=== PATIENT | male | born 1955 | race Hispanic/Latino ===

== ENCOUNTER 2022-01-02 09:21 | Day surgery (SDC) | payer OTHER ==
--- NOTE | 2021-12-29 10:59 | EKG ---
Test Date: 2021-12-28 Test Time: 13:05:35 Clinic Supervisor: ED MEASUREMENT RESULTS: Intervals: Rate: 48 DE: 162 QRSD: 92 QT: 444 QTc: 396 [place]: P: 64 DE: 162 QRS: 59 T: 65 INTERPRETIVE STATEMENTS: Marked sinus bradycardia Abnormal ECG Compared to ECG 08/24/2016 10:00:12 No significant changes Electronically Signed On 12-29-21 10:58:40 CDT by Doyle Orr
[2022-01-02] MEDS ORDERED: CEFAZOLIN SODIUM 1 GM/VIAL ONE (10:07)
[2022-01-02] MEDS ORDERED: NA CHLORIDE 0.9% 1,000 ML ONE (10:07)
[2022-01-02] MEDS ORDERED: MIDAZOLAM HCL 2 MG/2 ML INJ ONE (11:23)
[2022-01-02] MEDS ORDERED: propofoL 200 MG/20 ML VIAL IV ONE (11:23)
[2022-01-02] MEDS ORDERED: LIDOCAINE 1% MPF 5 ML VIAL ONE (11:23)
[2022-01-02] MEDS ORDERED: FENTANYL CITR 100 MCG/2 ML ONE ×2 (11:23→12:03)
[2022-01-02] MEDS ORDERED: BUPIVACA 0.5%/EPI 0.0005%/PF 30 ML VIAL ONE (11:25)
[2022-01-02] MEDS ORDERED: HYDROMORPHONE HCL 1 MG/ML INJ ONE (11:38)
[2022-01-02] MEDS ORDERED: ONDANSETRON 4 MG/2 ML VIAL ONE (12:17)
[2022-01-02 12:50] VITALS: TEMP 97.6
[2022-01-02 14:47] VITALS: BP 215/70; O2SAT 99
--- NOTE | 2022-01-02 22:50 | OP ---
Date of Procedure: 01/02/2022 Surgeon: Tai Suarez MD Preoperative Diagnosis: Right knee pain with mechanical symptoms, probable medial meniscal tear or t ears. 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 Procedure: Right knee arthroscopy with debridement of medial meniscus and takedown of medial plica. Estimated Blood Loss: 10 cc. Complications: There were no complications. Specimen: No pathology specimen sent. Indications For Operation: Mr. 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 He had an MRI, which demonstrates a probable medial meniscal tear as well as mechanical symptoms on physical examination and history. He does have medial joint l ine tenderness and risks, benefits, and alternatives of different methods of treating this have been discussed with the patient. He states he understands things as presented and wishes to proceed. Description Of Procedure: The patient was taken to the operating room and placed in supine position. General anesthesia was obtained by staff. Following this, a well-padded tourniquet was placed on s uperior right thigh, however, it was not used throughout the case. His right lower extremity was the n prepped and draped in usual sterile fashion for procedure. Following this, a standard superior med ial arthroscopy portal was then established atraumatically with 1 pass with liberation approximately 20 cc of normal-appearing synovial fluid. Following this, an inferolateral arthroscopy portal was th en performed atraumatically with 1 pass. The knee was then sequentially examined includes suprapatel lar pouch, medial and lateral gutters, medial and lateral compartments, as well as the notch and soares llofemoral joint. Pertinent findings appear to be some very mild fraying of the posterior horn of th e lateral meniscus as well as a fairly significant radial tear of the posterior aspect of the medial meniscus. Also seen is a band of tissue, which appears to drape over the medial femoral condyle. Al so seen is some mild chondromalacia of the patellofemoral joint. Following this, a standard inferome dial arthroscopy portal was then established under direct vision using a needle for localization. Th is used as a working portal. The shaver was then used to gently debride the medial meniscus and a pr obe was used and it does demonstrate that this is a highly displaceable, relatively large radial tear of the medial meniscus. A combination of hand instruments and shaver were then used to debride this back to a firm hook stable well-contoured base. After this, the lateral compartment was investigate d with a probe. There was only very minor fraying of the posterior horn of the lateral meniscus. Th is was is lightly touched with a shaver, however, I would not think there is any significant debridem ent. Following this, the superomedial tissue which appeared to be draping over the medial femoral co ndyle was then debrided using a shaver. After this, knee was again sequentially examined and all the above areas with no further pathology seen, which is amenable to arthroscopic intervention. The inf erior arthroscopy portal was then stapled shut. The superomedial arthroscopy portal was used for pretty cement of Marcaine with epinephrine. This was then stapled and was placed in a well-padded sterile d ressing, awakened and taken to recovery room in good condition. There were no complications. SE/MODL Voice ID: [id number] Report ID: [id number]
== END 2022-01-02 14:10 | disposition home or self-care (01) ==
LOC: OR 09:21
PROVIDERS: ATTEND Orthopaedic Surgery
PROC: 0SBC4ZZ Excision of Right Knee Joint, Percutaneous Endoscopic Approach (ICD-10-PCS; principal; 2022-01-02 11:15)
DX: S83.241A Other tear of medial meniscus, current injury, right knee, initial encounter (principal); M22.41 Chondromalacia patellae, right knee; M67.51 Plica syndrome, right knee; Z20.822 Contact with and (suspected) exposure to COVID-19
CPT/HCPCS: 93005; 82947 ×2; 29877; U0002; J2704; J2250; J3010 ×2; J1170; J7030; J2405; J0690

== ENCOUNTER 2022-06-20 10:06 | Emergency (ER) | payer OTHER ==
--- OUTSIDE RECORDS SUMMARY | 2022-06-20 10:16 | XMS REPORT | Continuity of Care Document ---
:1955 Author Organization [facility] Address [address] [place] [address] Care Team Providers Name Role Phone Radha Lux Primary Care Physician Alejandrina Venegas Attending Clinician Unavailable Debra Albarado Attending Clinician Unavailable Radha Lux Attending Clinician Unavailable JANET JOVEL Attending Clinician Unavailable Janet Jovel MD Attending Clinician Doctor Unassigned, [place] Attending Clinician Unavailable VANCE BABCOCK Attending Clinician Unavailable MD VANCE BABCOCK Attending Clinician Unavailable IGOR LANG Attending Clinician Unavailable Willy Bailey DO Attending Clinician Kvng Alvarado MD Attending Clinician Pao LUONG, Harriett Crowder Attending Clinician Unavailable Shaila Doherty MD Attending Clinician Unavailable VANCE BABCOCK Admitting Clinician Unavailable MD VANCE BABCOCK Admitting Clinician Unavailable Payers Payer Name Policy Type Policy Number Effective Date Expiration Date Alex HELTON/SUYAPA [id number] 2021 MEDICARE ADVANTAGE 00:00:00 Problems Condition Condition Condition Status Onset Resolution Last Treating Co mments Source Name Details Category Date Date Treatment Clinician Date 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 00:00: Hosp cristobal behavior behavior 00 l of larynx of larynx Essential Essential Disease Active 2017-08 Uni vers hypertensi hypertensi 2-12 it y of on on 00:00: [place] 00 Medical Branch Dyslipidem Dyslipidem Disease Active 2017-08 U nivers ia ia 2-12 ity of 00:00: [place] 00 Medical Branch Stage 1 Stage 1 Disease Active 2017-08 Univers chronic chronic 2-12 ity of kidney kidney 00:00: [place] disease disease 00 Medical Branch Type 2 Type 2 Disease Active Univers diabetes diabetes 912 ity of mellitus mellitus 00:00: [place] with with 00 Medical cardiac cardiac Branch complicati complicati on on Stroke Stroke Problem Common [facility] Ischemic Ischemic Problem Commo n heart heart Spirit disease disease - [facility] Erectile Erectile Problem Commo n dysfunctio dysfunctio Sp dhaval n n - [facility] Elevated Elevated Problem Commo n PSA PSA Spirit [facility] [id number] ED Problem Common (erectile Spirit dysfunctio - CHI n) of [facility] [id number] 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 Medical artery Center without angina pectoris [id number] Presence Problem Comm on of Spirit coronary - CHI angioplast St y implant [facility] and graft Medical [place] [id number] Hyperlipid Problem Com mon emia, Spirit unspecifie - CHI d hyperlipid [facility] emia type [facility] [id number] Type 2 Problem Common diabetes Spirit mellitus - CHI with [facility] Obstructiv JOAQUINA Problem Commo n e sleep (obstructi Spiri t apnea ve sleep - CHI syndrome apnea) [facility] [id number] History of Problem Co mmon myocardial Spirit infarction - [facility] Chronic Chronic Problem Common renal kidney Spirit failure disease - CHI syndrome (CKD) [facility] [id number] Other Problem Common allergic Spirit rhinitis - CHI [facility] [id number] Obesity Problem Commo n (BMI Spirit 35.0-39.9 [id number] longterm Problem Com mon current Spirit use of - CHI insulin [facility] [id number] Hypertensi Problem Com mon on, Spirit unspecifie - CHI d type [facility] [id number] Grieving Problem Comm on Spirit - CHI [facility] [id number] Adjustment Problem Com mon disorder, Spirit unspecifie - CHI d type [facility] [id number] Pain, Problem Commo n [address] joint, Spirit knee, - CHI right [facility] [id number] Other tear Problem Co mmon of medial Spirit meniscus - CHI of right knee as [facility] current Medical injury, Center subsequent encounter [id number] Status Problem Common post Spirit arthroscop - CHI y of knee [facility] 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) [facility] [id number] Chronic Problem Common allergic Spirit conjunctiv - CHI itis [facility] Allergies, Adverse Reactions, Alerts Allergy Allergy Status Severity Reaction(s) Onset Inactive Treating Comm ents Source Name Type Date Date Clinician Amlodipi Propensi Active Itching Metho di ne ty to 01-05 st adverse 00:00: Hospita reaction 00 l s to drug Benazepr Propensi Active Other (See Unknown M ethodi il ty to Comments) 01-[address] adverse 00:00: Hospita reaction 00 l s to drug Dapaglif Propensi Active Other (See Unknown M ethodi lozin ty to Comments) 01-[address] adverse 00:00: Hospita reaction 00 l s to drug Lisinopr Propensi Active Cough Method i il ty to 01-05 st adverse 00:00: Hospita reaction 00 l s to drug Benazepr Propensi Active Unknown - Uni vers il ty to See comments 10-08 ity of adverse 00:00: [place] reaction 00 Medical s Branch Dapaglif Propensi Active Other - See Aches/Pa i Univers lozin ty to comments 10-08 ns ity of adverse 00:00: [place] reaction 00 Medical s Branch Lisinopr Propensi Active Cough Univer s il ty to 10-08 ity of adverse 00:00: [place] reaction Medical s Branch Amlodipi Propensi Active Itching Unive rs ne-Benaz ty to 2 ity of epril adverse 00:00: [place] reaction 00 Medical s Branch amlodipi amlodipi Active Unknown Commo n ne / ne / Spirit benazepr benazepr - CHI il [facility] amlodipi amlodipi Active Unknown Commo n ne ne [facility] 0 Drug Active Unknown Common allergy [facility] Social History Social Habit Start Date Stop Date Quantity Comments Source History of Common Spirit - Tobacco Use [facility] Exposure to 2022-02-03 2022-02-13 Not sure University of SARS-CoV-2 00:00:00 15:42:00 [facility] (event) Branch Alcohol intake 2021-02-01 2021-02-01 Ex-drinker [place] [facility] 00:00:00 00:00:00 (finding) Tobacco use and 2017-10-08 2017-10-08 Never used Universit y of exposure 00:00:00 00:00:00 [facility] Sex Ass[birth year] [place] [facility] 00:00:00 00:00:00 Smoking Status Start Date Stop Date Source Never Smoker [facility] Medications Ordered Filled Start Stop Current Ordering Indication Dosage Frequency Signature Comments Components Source Medication Medication Date Date Medication? Clinician (SIG) Name Name insulin Yes [id number] 50U inject 50 U nivers degludec 7-05 Units ity of (TRESIB[place] 00:00[place] FLEXTOUCH 00 skin 2 Medical U-200) 200 (two) Branch unit/mL (3 times mL) InPn daily. E11.65 Ketoconazol Ketoconazol 2021- No 1{appli BID Ketoconazo e 2 % e 2 % 01-10 cation_ le 2 % 00:00: 00:00 to_affe 00 :00 cted_ar ea} Acetaminoph Acetaminoph No 1{table Acetaminop en-Codeine en-Codeine 5-24 t_as_ne hen-Codein #3 300-30 #3 300-30 00:00: eded} e #3 MG MG 00 300-30 MG Acetaminoph Acetaminoph 2022-0 No 1{table Acetaminop en-Codeine en-Codeine 5-24 t_as_ne hen-Codein #3 300-30 #3 300-30 00:00: eded} e #3 MG MG 00 300-30 MG Acetaminoph Acetaminoph 2022-0 No 1{table Acetaminop en-Codeine en-Codeine 5-24 t_as_ne hen-Codein #3 300-30 #3 300-30 00:00: eded} e #3 MG MG 00 300-30 MG Acetaminoph Acetaminoph 2022-0 No 1{table Acetaminop en-Codeine en-Codeine 5-24 t_as_ne hen-Codein #3 300-30 #3 300-30 00:00: eded} e #3 MG MG 00 300-30 MG Acetaminoph Acetaminoph 2022-0 No 1{table Acetaminop en-Codeine en-Codeine 5-24 t_as_ne hen-Codein #3 300-30 #3 300-30 00:00: eded} e #3 MG MG 00 300-30 MG Acetaminoph Acetaminoph 2022-0 No 1{table Acetaminop en-Codeine en-Codeine 5-24 t_as_ne hen-Codein #3 300-30 #3 300-30 00:00: eded} e #3 MG MG 00 300-30 MG Acetaminoph Acetaminoph 2022-0 No 1{table Acetaminop en-Codeine en-Codeine 5-24 t_as_ne hen-Codein #3 300-30 #3 300-30 00:00: eded} e #3 MG MG 00 300-30 MG Acetaminoph Acetaminoph 2022-0 No 1{table Acetaminop en-Codeine en-Codeine 5-24 t_as_ne hen-Codein #3 300-30 #3 300-30 00:00: eded} e #3 MG MG 00 300-30 MG Acetaminoph Acetaminoph 2022-0 No 1{table Acetaminop en-Codeine en-Codeine 5-24 t_as_ne hen-Codein #3 300-30 #3 300-30 00:00: eded} e #3 MG MG 00 300-30 MG Acetaminoph Acetaminoph No 1{table Acetaminop en-Codeine en-Codeine 5-24 t_as_ne hen-Codein #3 300-30 #3 300-30 00:00: eded} e #3 MG MG 00 300-30 MG Acetaminoph Acetaminoph 0 No 1{table Acetaminop en-Codeine en-Codeine 5-24 t_as_ne hen-Codein #3 300-30 #3 300-30 00:00: eded} e #3 MG MG 00 300-30 MG ONETOUCH Yes USE THREE Univ ers VERIO TEST 5-23 TIMES ity of STRIPS 00:00: DAILY [place] strip 00 Medical Branch ezetimibe Yes [id number] 10mg Take 1 U nivers 10 mg 2-01 tablet by ity of tablet 00:00: mouth daily. Medical Branch pravastatin Yes [id number] 40mg Take 1 Univers 40 mg 2-01 tablet by ity of tablet 00:00: mouth 00 every Medical evening. Branch permethrin Yes APPLY Univer s 5 % cream 1-14 TOPICALLY ity o f 00:00: TO THE AFFECTED Medical AREA EVERY Branch DAY FOR 2 WEEKS ivermectin Yes TAKE 8 Unive rs 3 mg tablet 1-14 TABLETS BY it y of 00:00: MOUTH FOR [place] 00 1 DOSE AND Medical REPEAT Branch SECOND DOSE IN 2 WEEKS FOR SCABIES pantoprazol Yes 40mg Take 40 mg Univers e 40 mg EC 1-03 by mouth 2 ity of tablet 00:00: (two) [place] 00 times Medical daily. Branch TRESIBA 2020-08- No [id number] INJECT 60 Univers FLEXTOUCH 2-30 07-05 UNITS ity of U-200 200 00:00: 00:00 [place] unit/mL (3 00 :00 SKIN TWICE Med ical mL) InPn DAILY Branch EPINEPHrine 2020-08 Yes ADMINISTER Univers 0.3 mg/0.3 1-28 0.3 ML IN ity of mL 00:00: THE MUSCLE [place] injection 00 1 TIME Medical Branch Fluocinolon 2020-08 Yes Univer s e Acetonide 1-27 ity of Oil 0.01 % 00:00: [place] otic drops 00 Medical Branch azelastine 2020-08 Yes USE 2 Univer s 137 mcg 1-26 SPRAYS IN ity of (0.1 %) 00:00: EACH [place] nasal spray 00 NOSTRIL Medic al EVERY Branch MORNING AND IN THE EVENING FEROSUL 325 2020-08 Yes 325mg Take 325 U nivers mg (65 mg 1-26 mg by ity of iron) 00:00: mouth [place] tablet 00 daily. Medical Branch ONETOUCH 2020-08 Yes USE THREE Univ ers DELICA PLUS 0-06 TIMES ity of LANCET 33 00:00: DAILY [place] gauge Misc 00 Medical Branch Ferrous Ferrous No 1{table QD Ferrous Sulfate 325 Sulfate 325 9-15 t} Sulfate (65 Fe) mg (65 Fe) mg 00:00: 325 (65 00 Fe) mg Ferrous Ferrous No 1{table QD Ferrous Sulfate 325 Sulfate 325 9-15 t} Sulfate (65 Fe) mg (65 Fe) mg 00:00: 325 (65 00 Fe) mg Ferrous Ferrous No 1{table QD Ferrous Sulfate 325 Sulfate 325 9-15 t} Sulfate (65 Fe) mg (65 Fe) mg 00:00: 325 (65 00 Fe) mg insulin Yes Inject Methodi degludec 6-[address] (Tresiba 17:31: skin. Hospita FlexTouch 39 l U-100) 100 unit/mL (3 mL) subcutaneou s pen insulin Yes 10U Q.[id number] Inject 10 Methodi ASPART 6-[id number] (NovoLOG) 17:31: 3D under the Hos abdiaziz 100 unit/mL 39 skin 3 l injection (three) times a day before meals. losartan Yes 100mg QD Take 100 Meth tashi (COZAAR) 6-[address] 100 MG 17:31: mouth Hospita tablet 39 daily. l metoprolol Yes 50mg QD Take 50 mg M ethodi tartrate 6-[address] (LOPRESSOR) 17:31: nightly. Ho spita 50 mg 39 l tablet hydrALAZINE Yes 100mg Q.[id number] Take 100 Methodi (APRESOLINE 6-21 [id number] mg by s t ) 100 MG 17:31: 3D mouth 3 Hospit a tablet 39 (three) l times a day. clopidogreL Yes 75mg QD Take 75 mg Methodi (PLAVIX) 75 6-[address] mg tablet 17:31: daily. Hospit a 39 l clonIDINE Yes 1{patch Q7D Place 1 Me thodi (CATAPRES-T 6-21 } patch on st TS) 0.3 17:31: the skin Hospit a mg/24 hr 39 once a l week. amLODIPine Yes 10mg QD Take 10 mg M ethodi (NORVASC) 6-[address] 10 mg 17:31: daily. Hospita tablet 39 l multivit,ca Yes 1{tbl} QD Take 1 Me thodi lc,mins/iro 6-[address] n/folic 17:31: mouth Hospita (multivitam 39 daily. l in,tx-iron- minerals) 27-0.4 mg tablet tablet aspirin Yes 81mg QD Take 81 mg Meth tashi (ECOTRIN) 6-[address] 81 MG 17:31: daily. Hospita enteric 39 l coated tablet montelukast Yes 10mg QD Take 10 mg Methodi (SINGULAIR) 6-[address] 10 mg 17:31: nightly. Hospita tablet 39 l ezetimibe 0 Yes 10mg QD Take 10 mg Me thodi (ZETIA) 10 6-[address] mg tablet 17:31: daily. Hospit a 39 l hydroCHLORO 0 Yes 12.5mg QD Take 12.5 Methodi thiazide 6-[address] (HYDRODIURI 17:31: mouth Hospi ta L) 12.5 MG 39 daily. l tablet pantoprazol 0 Yes 40mg QD Take 40 mg Methodi e 6-[address] (PROTONIX) 17:31: daily. Hospi ta 40 MG EC 39 l tablet pravastatin 2020-0 Yes 40mg QD Take 40 mg Methodi (PRAVACHOL) 6-[address] 40 mg 17:31: daily. Hospita tablet 39 l Blood-Gluco 2020-0 Yes Use Tid. Un mikala se Meter 3-25 Dx E11.59 ity of (ONETOUCH 00:00: [facility] FLEX 00 Medical METER) Mis Branch Gentamicin Gentamicin 2020-0 No 80mg C ommon 80mg 80mg 3-18 Spirit 00:00: - CHI [facility] Gentamicin Gentamicin 1-0 No 80mg C ommon 80mg 80mg 3-18 Spirit 00:00: - CHI [facility] Gentamicin Gentamicin 1-0 No 80mg C ommon 80mg 80mg 3-18 Spirit 00:00: - CHI [facility] Gentamicin Gentamicin 1-0 No 80mg C ommon 80mg 80mg 3-18 Spirit 00:00: - CHI [facility] Gentamicin Gentamicin 1-0 No 80mg C ommon 80mg 80mg 3-18 Spirit 00:00: - CHI [facility] Gentamicin Gentamicin 1-0 No 80mg C ommon 80mg 80mg 3-18 Spirit 00:00: - CHI [facility] Gentamicin Gentamicin 1-0 No 80mg C ommon 80mg 80mg 3-18 Spirit 00:00: - CHI [facility] Gentamicin Gentamicin 1-0 No 80mg C ommon 80mg 80mg 3-18 Spirit 00:00: - CHI [facility] Gentamicin Gentamicin 1-0 No 80mg C ommon 80mg 80mg 3-18 Spirit 00:00: - CH[facility] Gentamicin Gentamicin 1-0 No 80mg C ommon 80mg 80mg 3-18 Spirit 00:00: - CHI [facility] Gentamicin Gentamicin 1-0 No 80mg C ommon 80mg 80mg 3-18 Spirit 00:00: - CHI [facility] Gentamicin Gentamicin 2021-0 No 80mg C ommon 80mg 80mg 3-18 Spirit 00:00: - CHI [facility] Gentamicin Gentamicin 2021-0 No 80mg C ommon 80mg 80mg 3-18 Spirit 00:00: - CHI [facility] Gentamicin Gentamicin 1-0 No 80mg C ommon 80mg 80mg 3-18 Spirit 00:00: - CHI [facility] Gentamicin Gentamicin 1-0 No 80mg C ommon 80mg 80mg 3-18 Spirit 00:00: - CHI [facility] Gentamicin Gentamicin 1-0 No 80mg C ommon 80mg 80mg 3-18 Spirit 00:00: - CH[facility] Gentamicin Gentamicin 1-0 No 80mg C ommon 80mg 80mg 3-18 Spirit 00:00: - CHI [facility] Gentamicin Gentamicin 1-0 No 80mg C ommon 80mg 80mg 3-18 Spirit 00:00: - CHI [facility] Gentamicin Gentamicin 1-0 No 80mg C ommon 80mg 80mg 3-18 Spirit 00:00: - CHI [facility] Gentamicin Gentamicin 1-0 No 80mg C ommon 80mg 80mg 3-18 Spirit 00:00: - CHI [facility] Gentamicin Gentamicin 1-0 No 80mg C ommon 80mg 80mg 3-18 Spirit 00:00: - CHI [facility] Gentamicin Gentamicin 1-0 No 80mg C ommon 80mg 80mg 3-18 Spirit 00:00: - CHI [facility] Gentamicin Gentamicin 1-0 No 80mg C ommon 80mg 80mg 3-18 Spirit 00:00: - CHI [facility] Gentamicin Gentamicin 1-0 No 80mg C ommon 80mg 80mg 3-18 Spirit 00:00: - [facility] insulin 2019- Yes [id number] 5U inject Univ ers aspart 2-08 5-10 Units ity of U-100 00:00: under the [place] (NOVOLOG 00 skin 3 Medical FLEXPEN (three) Branch U-100 times INSULIN) daily 100 unit/mL before (3 mL) meals. injection Albuterol Albuterol 2019-0 Yes Radha 2 puffs as Common Sulfate HFA Sulfate HFA 1-06 [place] needed for Spirit 00:00: wheezing - CHI [facility] Clotrimazol Clotrimazol 2018-08 2020- No Radha 1 Common e-Betametha e-Betametha 1-04 07-05 [place] applicatio Spirit jayne sone 00:00: 00:00 n to - CHI 00 :00 affected [facility] Insulin 2018- Yes [id number] Use as Univ ers [place], 0-08 directed 5 ity o f Disposable, 00:00: times a [place] as (PEN 00 day E11.9 Medical NEEDLE) 32 Branch gauge x 5/32" Ndle Meclizine Meclizine 2017- Yes Radha 1 tablet Common HCl HCl 0-13 [place] as needed Spiri t 00:00: for - CHI 00 dizziness [facility] metoprolol 2017- Yes 25mg Take 25 mg U nivers succinate 9-12 by mouth ity of XL 25 mg 24 10:29: [place]. [place] hr tablet 37 Medical Branch losartan 2017- Yes 100mg Take 100 Univ ers 100 mg 9-12 mg by ity of tablet 10:29: mouth [place] daily. Medical Branch cloniDINE 2017- Yes .3mg Take 0.3 Univ ers 0.3 mg 9-12 mg by ity of tablet 10:29: mouth once [place] now. Medical Branch clopidogrel 2017- Yes 75mg Take 75 mg Univers 75 mg 9-12 by mouth ity of tablet 10:29: daily. [place] [address] Medical Branch hydralAZINE 2017- Yes 100mg Take 100 U nivers 100 mg 9-12 mg by ity of tablet 10:29: mouth 2 [place] 37 (two) Medical times Branch daily. Crestor Crestor Yes Radha 1 tablet Co mmon 4-05 [place] in evening Spir it 00:00: for high - CHI 00 cholestero [facility] Crestor 20 Crestor 20 No QD Crestor 20 MG MG 4-05 MG 00:00: 00 Crestor 20 Crestor 20 No QD Crestor 20 MG MG 4-05 MG 00:00: 00 Crestor 20 Crestor 20 No QD Crestor 20 MG MG 4-05 MG 00:00: 00 Crestor 20 Crestor 20 No QD Crestor 20 MG MG 4-05 MG 00:00: 00 Crestor 20 Crestor 20 No QD Crestor 20 MG MG 4-05 MG 00:00: 00 Crestor 20 Crestor 20 No QD Crestor 20 MG MG 4-05 MG 00:00: 00 Crestor 20 Crestor 20 No QD Crestor 20 MG MG 4-05 MG 00:00: 00 Crestor 20 Crestor 20 No QD Crestor 20 MG MG 4-05 MG 00:00: 00 Crestor 20 Crestor 20 No QD Crestor 20 MG MG 4-05 MG 00:00: 00 Crestor 20 Crestor 20 No QD Crestor 20 MG MG 4-05 MG 00:00: 00 Crestor 20 Crestor 20 No QD Crestor 20 MG MG 4-05 MG 00:00: 00 Crestor 20 Crestor 20 No QD Crestor 20 MG MG 4-05 MG 00:00: 00 Crestor 20 Crestor 20 No QD Crestor 20 MG MG 4-05 MG 00:00: 00 Crestor 20 Crestor 20 No QD Crestor 20 MG MG 4-05 MG 00:00: 00 Crestor 20 Crestor 20 No QD Crestor 20 MG MG 4-05 MG 00:00: 00 Crestor 20 Crestor 20 No QD Crestor 20 MG MG 4-05 MG 00:00: 00 Crestor 20 Crestor 20 No QD Crestor 20 MG MG 4-05 MG 00:00: 00 Crestor 20 Crestor 20 No QD Crestor 20 MG MG 4-05 MG 00:00: 00 Crestor 20 Crestor 20 No QD Crestor 20 MG MG 4-05 MG 00:00: 00 Crestor 20 Crestor 20 No QD Crestor 20 MG MG 4-05 MG 00:00: 00 Crestor 20 Crestor 20 No QD Crestor 20 MG MG 4-05 MG 00:00: 00 Crestor 20 Crestor 20 No QD Crestor 20 MG MG 4-05 MG 00:00: 00 Crestor 20 Crestor 20 No QD Crestor 20 MG MG 4-05 MG 00:00: 00 Crestor 20 Crestor 20 No QD Crestor 20 MG MG 4-05 MG 00:00: 00 Crestor 20 Crestor 20 No QD Crestor 20 MG MG 4-05 MG 00:00: 00 Crestor 20 Crestor 20 2018-0 No QD Crestor 20 MG MG 4-05 MG 00:00: 00 Crestor 20 Crestor 20 2017-0 No QD Crestor 20 MG MG 4-05 MG 00:00: 00 aspirin 81 2017-0 Yes 81mg Take 1 Unive rs mg EC 2-27 tablet by ity of tablet 00:00: mouth [place] 00 daily. Medical Branch Pravastatin Pravastatin No QD Pravastati Sodium 40 Sodium 40 n Sodium MG MG 40 MG Unifine Unifine No Unifine Pentips 32G Pentips 32G Pentips X 4 MM X 4 MM 32G X 4 MM Singulair Singulair No 1{table QD Singulair 10 MG 10 MG t} 10 MG amLODIPine amLODIPine No 1{table QD amLODIPine Besylate 10 Besylate 10 t} Besylate MG MG 10 MG Ultram 50 Ultram 50 No 1{table QID Ultram 50 MG MG t_as_ne MG eded} Permethrin Permethrin No 1{appli Permethrin 5 % 5 % cation_ 5 % to_affe cted_ar ea} Losartan Losartan No 1{table QD Losartan Potassium Potassium t} Potassium 100 MG 100 MG 100 MG Metoprolol Metoprolol No Metoprolol Succinate Succinate Succinate ER 50 MG ER 50 MG ER 50 MG Lotrisone Lotrisone No 1{appli BID Lotrisone 1-0.05 % 1-0.05 % cation_ 1-0.05 % to_affe cted_ar ea} tiZANidine tiZANidine No tiZANidine HCl 2 MG HCl 2 MG HCl 2 MG hydroCHLORO hydroCHLORO No hydroCHLOR thiazide thiazide Othiazide 12.5 MG 12.5 MG 12.5 MG hydrALAZINE hydrALAZINE No 1{table hydrALAZIN HCl 100 MG HCl 100 MG t} E HCl 100 MG NovoLOG NovoLOG No NovoLOG FlexPen 100 FlexPen 100 FlexPen UNIT/ML UNIT/ML 100 UNIT/ML Aspir-Low Aspir-Low No 1{table QD Aspir-Low 81 MG 81 MG t} 81 MG Losartan Losartan No 1{table QD Losartan Potassium Potassium t} Potassium 100 MG 100 MG 100 MG Plavix 75 Plavix 75 No 1{table QD Plavix 75 MG MG t} MG FeroSul 325 FeroSul 325 No FeroSul (65 Fe) MG (65 Fe) MG 325 (65 Fe) MG OneTouch OneTouch No OneTouch Verio - Verio - Verio - Ezetimibe Ezetimibe No 1{table QD Ezetimibe 10 MG 10 MG t} 10 MG Mobic 7.5 Mobic 7.5 No 1{table QD Mobic 7.5 MG MG t} MG Albuterol Albuterol No Albuterol Sulfate HFA Sulfate HFA Sulfate 108 (90 108 (90 HFA 108 Base) Base) (90 Base) MCG/ACT MCG/ACT MCG/ACT Meclizine Meclizine No BID Meclizine HCl 25 mg HCl 25 mg HCl 25 mg Tresiba Tresiba No Tresiba FlexTouch FlexTouch FlexTouch 200 UNIT/ML 200 UNIT/ML 200 UNIT/ML Toujeo Toujeo No QD Toujeo SoloStar SoloStar SoloStar 300u/ml 300u/ml 300u/ml Levemir Levemir No Levemir FlexTouch FlexTouch FlexTouch 100 UNIT/ML 100 UNIT/ML 100 UNIT/ML Aspir-Low Aspir-Low No 1{table QD Aspir-Low 81 MG 81 MG t} 81 MG tiZANidine tiZANidine No tiZANidine HCl 2 MG HCl 2 MG HCl 2 MG Losartan Losartan No 1{table QD Losartan Potassium Potassium t} Potassium 100 MG 100 MG 100 MG Unifine Unifine No Unifine Pentips 32G Pentips 32G Pentips X 4 MM X 4 MM 32G X 4 MM Ezetimibe Ezetimibe No 1{table QD Ezetimibe 10 MG 10 MG t} 10 MG Januvia 100 Januvia 100 No 1{table QD Januvia mg mg t} 100 mg Mobic 7.5 Mobic 7.5 No 1{table QD Mobic 7.5 MG MG t} MG Metoprolol Metoprolol No 1{table QD Metoprolol Succinate Succinate t} Succinate ER 50 MG ER 50 MG ER 50 MG Toujeo Toujeo No QD Toujeo SoloStar SoloStar SoloStar 300u/ml 300u/ml 300u/ml hydrALAZINE hydrALAZINE No 1{table hydrALAZIN HCl 100 MG HCl 100 MG t} E HCl 100 MG Pravastatin Pravastatin No QD Pravastati Sodium 40 Sodium 40 n Sodium MG MG 40 MG FeroSul 325 FeroSul 325 No FeroSul (65 Fe) MG (65 Fe) MG 325 (65 Fe) MG Albuterol Albuterol No Albuterol Sulfate HFA Sulfate HFA Sulfate 108 (90 108 (90 HFA 108 Base) Base) (90 Base) MCG/ACT MCG/ACT MCG/ACT amLODIPine amLODIPine No 1{table QD amLODIPine Besylate 10 Besylate 10 t} Besylate MG MG 10 MG Ultram 50 Ultram 50 No 1{table QID Ultram 50 MG MG t_as_ne MG eded} Levemir Levemir No Levemir FlexTouch FlexTouch FlexTouch 100 UNIT/ML 100 UNIT/ML 100 UNIT/ML Lotrisone Lotrisone No 1{appli BID Lotrisone 1-0.05 % 1-0.05 % cation_ 1-0.05 % to_affe cted_ar ea} Tresiba Tresiba No Tresiba FlexTouch FlexTouch FlexTouch 200 UNIT/ML 200 UNIT/ML 200 UNIT/ML Singulair Singulair No 1{table QD Singulair 10 MG 10 MG t} 10 MG NovoLOG NovoLOG No NovoLOG FlexPen 100 FlexPen 100 FlexPen UNIT/ML UNIT/ML 100 UNIT/ML hydroCHLORO hydroCHLORO No hydroCHLOR thiazide thiazide Othiazide 12.5 MG 12.5 MG 12.5 MG Meclizine Meclizine No BID Meclizine HCl 25 mg HCl 25 mg HCl 25 mg cloNIDine cloNIDine No cloNIDine HCl 0.3 MG HCl 0.3 MG HCl 0.3 MG OneTouch OneTouch No OneTouch Verio - Verio - Verio - Metoprolol Metoprolol No Metoprolol Succinate Succinate Succinate ER 50 MG ER 50 MG ER 50 MG Losartan Losartan No 1{table QD Losartan Potassium Potassium t} Potassium 100 MG 100 MG 100 MG Permethrin Permethrin No 1{appli Permethrin 5 % 5 % cation_ 5 % to_affe cted_ar ea} Plavix 75 Plavix 75 No 1{table QD Plavix 75 MG MG t} MG Aspir-Low Aspir-Low No 1{table QD Aspir-Low 81 MG 81 MG t} 81 MG tiZANidine tiZANidine No tiZANidine HCl 2 MG HCl 2 MG HCl 2 MG Losartan Losartan No 1{table QD Losartan Potassium Potassium t} Potassium 100 MG 100 MG 100 MG Unifine Unifine No Unifine Pentips 32G Pentips 32G Pentips X 4 MM X 4 MM 32G X 4 MM Ezetimibe Ezetimibe No 1{table QD Ezetimibe 10 MG 10 MG t} 10 MG Januvia 100 Januvia 100 No 1{table QD Januvia mg mg t} 100 mg Mobic 7.5 Mobic 7.5 No 1{table QD Mobic 7.5 MG MG t} MG Metoprolol Metoprolol No 1{table QD Metoprolol Succinate Succinate t} Succinate ER 50 MG ER 50 MG ER 50 MG Toujeo Toujeo No QD Toujeo SoloStar SoloStar SoloStar 300u/ml 300u/ml 300u/ml hydrALAZINE hydrALAZINE No 1{table hydrALAZIN HCl 100 MG HCl 100 MG t} E HCl 100 MG Pravastatin Pravastatin No QD Pravastati Sodium 40 Sodium 40 n Sodium MG MG 40 MG FeroSul 325 FeroSul 325 No FeroSul (65 Fe) MG (65 Fe) MG 325 (65 Fe) MG Albuterol Albuterol No Albuterol Sulfate HFA Sulfate HFA Sulfate 108 (90 108 (90 HFA 108 Base) Base) (90 Base) MCG/ACT MCG/ACT MCG/ACT amLODIPine amLODIPine No 1{table QD amLODIPine Besylate 10 Besylate 10 t} Besylate MG MG 10 MG Ultram 50 Ultram 50 No 1{table QID Ultram 50 MG MG t_as_ne MG eded} Levemir Levemir No Levemir FlexTouch FlexTouch FlexTouch 100 UNIT/ML 100 UNIT/ML 100 UNIT/ML Lotrisone Lotrisone No 1{appli BID Lotrisone 1-0.05 % 1-0.05 % cation_ 1-0.05 % to_affe cted_ar ea} Tresiba Tresiba No Tresiba FlexTouch FlexTouch FlexTouch 200 UNIT/ML 200 UNIT/ML 200 UNIT/ML Singulair Singulair No 1{table QD Singulair 10 MG 10 MG t} 10 MG NovoLOG NovoLOG No NovoLOG FlexPen 100 FlexPen 100 FlexPen UNIT/ML UNIT/ML 100 UNIT/ML hydroCHLORO hydroCHLORO No hydroCHLOR thiazide thiazide Othiazide 12.5 MG 12.5 MG 12.5 MG Meclizine Meclizine No BID Meclizine HCl 25 mg HCl 25 mg HCl 25 mg cloNIDine cloNIDine No cloNIDine HCl 0.3 MG HCl 0.3 MG HCl 0.3 MG OneTouch OneTouch No OneTouch Verio - Verio - Verio - Metoprolol Metoprolol No Metoprolol Succinate Succinate Succinate ER 50 MG ER 50 MG ER 50 MG Losartan Losartan No 1{table QD Losartan Potassium Potassium t} Potassium 100 MG 100 MG 100 MG Permethrin Permethrin No 1{appli Permethrin 5 % 5 % cation_ 5 % to_affe cted_ar ea} Plavix 75 Plavix 75 No 1{table QD Plavix 75 MG MG t} MG Triamcinolo Triamcinolo No 1{appli BID Triamcinol ne ne cation_ one Acetonide Acetonide to_affe Acetonide 0.1 % 0.1 % cted_ar 0.1 % ea} Ultram 50 Ultram 50 No 1{table QID Ultram 50 MG MG t_as_ne MG eded} Losartan Losartan No 1{table QD Losartan Potassium Potassium t} Potassium 100 MG 100 MG 100 MG tiZANidine tiZANidine No tiZANidine HCl 2 MG HCl 2 MG HCl 2 MG Aspir-Low Aspir-Low No 1{table QD Aspir-Low 81 MG 81 MG t} 81 MG amLODIPine amLODIPine No 1{table QD amLODIPine Besylate 10 Besylate 10 t} Besylate MG MG 10 MG Albuterol Albuterol No Albuterol Sulfate HFA Sulfate HFA Sulfate 108 (90 108 (90 HFA 108 Base) Base) (90 Base) MCG/ACT MCG/ACT MCG/ACT Januvia 100 Januvia 100 No 1{table QD Januvia mg mg t} 100 mg Levemir Levemir No Levemir FlexTouch FlexTouch FlexTouch 100 UNIT/ML 100 UNIT/ML 100 UNIT/ML FeroSul 325 FeroSul 325 No FeroSul (65 Fe) MG (65 Fe) MG 325 (65 Fe) MG Metoprolol Metoprolol No Metoprolol Succinate Succinate Succinate ER 50 MG ER 50 MG ER 50 MG Lotrisone Lotrisone No 1{appli BID Lotrisone 1-0.05 % 1-0.05 % cation_ 1-0.05 % to_affe cted_ar ea} Permethrin Permethrin No 1{appli Permethrin 5 % 5 % cation_ 5 % to_affe cted_ar ea} NovoLOG NovoLOG No NovoLOG FlexPen 100 FlexPen 100 FlexPen UNIT/ML UNIT/ML 100 UNIT/ML Ezetimibe Ezetimibe No 1{table QD Ezetimibe 10 MG 10 MG t} 10 MG Toujeo Toujeo No QD Toujeo SoloStar SoloStar SoloStar 300u/ml 300u/ml 300u/ml Tresiba Tresiba No Tresiba FlexTouch FlexTouch FlexTouch 200 UNIT/ML 200 UNIT/ML 200 UNIT/ML Metoprolol Metoprolol No 1{table QD Metoprolol Succinate Succinate t} Succinate ER 50 MG ER 50 MG ER 50 MG Pravastatin Pravastatin No QD Pravastati Sodium 40 Sodium 40 n Sodium MG MG 40 MG Meclizine Meclizine No BID Meclizine HCl 25 mg HCl 25 mg HCl 25 mg Plavix 75 Plavix 75 No 1{table QD Plavix 75 MG MG t} MG Unifine Unifine No Unifine Pentips 32G Pentips 32G Pentips X 4 MM X 4 MM 32G X 4 MM Mobic 7.5 Mobic 7.5 No 1{table QD Mobic 7.5 MG MG t} MG Singulair Singulair No 1{table QD Singulair 10 MG 10 MG t} 10 MG hydrALAZINE hydrALAZINE No 1{table hydrALAZIN HCl 100 MG HCl 100 MG t} E HCl 100 MG hydroCHLORO hydroCHLORO No hydroCHLOR thiazide thiazide Othiazide 12.5 MG 12.5 MG 12.5 MG cloNIDine cloNIDine No cloNIDine HCl 0.3 MG HCl 0.3 MG HCl 0.3 MG OneTouch OneTouch No OneTouch Verio - Verio - Verio - Losartan Losartan No 1{table QD Losartan Potassium Potassium t} Potassium 100 MG 100 MG 100 MG Singulair Singulair No 1{table QD Singulair 10 MG 10 MG t} 10 MG hydroCHLORO hydroCHLORO No hydroCHLOR thiazide thiazide Othiazide 12.5 MG 12.5 MG 12.5 MG hydrALAZINE hydrALAZINE No 1{table hydrALAZIN HCl 100 MG HCl 100 MG t} E HCl 100 MG Permethrin Permethrin No 1{appli Permethrin 5 % 5 % cation_ 5 % to_affe cted_ar ea} Mobic 7.5 Mobic 7.5 No 1{table QD Mobic 7.5 MG MG t} MG Losartan Losartan No 1{table QD Losartan Potassium Potassium t} Potassium 100 MG 100 MG 100 MG cloNIDine cloNIDine No cloNIDine HCl 0.3 MG HCl 0.3 MG HCl 0.3 MG NovoLOG NovoLOG No NovoLOG FlexPen 100 FlexPen 100 FlexPen UNIT/ML UNIT/ML 100 UNIT/ML amLODIPine amLODIPine No 1{table QD amLODIPine Besylate 10 Besylate 10 t} Besylate MG MG 10 MG FeroSul 325 FeroSul 325 No FeroSul (65 Fe) MG (65 Fe) MG 325 (65 Fe) MG Pravastatin Pravastatin No QD Pravastati Sodium 40 Sodium 40 n Sodium MG MG 40 MG Losartan Losartan No 1{table QD Losartan Potassium Potassium t} Potassium 100 MG 100 MG 100 MG tiZANidine tiZANidine No tiZANidine HCl 2 MG HCl 2 MG HCl 2 MG Triamcinolo Triamcinolo No 1{appli BID Triamcinol ne ne cation_ one Acetonide Acetonide to_affe Acetonide 0.1 % 0.1 % cted_ar 0.1 % ea} Levemir Levemir No Levemir FlexTouch FlexTouch FlexTouch 100 UNIT/ML 100 UNIT/ML 100 UNIT/ML Metoprolol Metoprolol No 1{table QD Metoprolol Succinate Succinate t} Succinate ER 50 MG ER 50 MG ER 50 MG Metoprolol Metoprolol No Metoprolol Succinate Succinate Succinate ER 50 MG ER 50 MG ER 50 MG Unifine Unifine No Unifine Pentips 32G Pentips 32G Pentips X 4 MM X 4 MM 32G X 4 MM Ezetimibe Ezetimibe No 1{table QD Ezetimibe 10 MG 10 MG t} 10 MG OneTouch OneTouch No OneTouch Verio - Verio - Verio - Lotrisone Lotrisone No 1{appli BID Lotrisone 1-0.05 % 1-0.05 % cation_ 1-0.05 % to_affe cted_ar ea} Januvia 100 Januvia 100 No 1{table QD Januvia mg mg t} 100 mg Plavix 75 Plavix 75 No 1{table QD Plavix 75 MG MG t} MG Toujeo Toujeo No QD Toujeo SoloStar SoloStar SoloStar 300u/ml 300u/ml 300u/ml Ultram 50 Ultram 50 No 1{table QID Ultram 50 MG MG t_as_ne MG eded} Aspir-Low Aspir-Low No 1{table QD Aspir-Low 81 MG 81 MG t} 81 MG Meclizine Meclizine No BID Meclizine HCl 25 mg HCl 25 mg HCl 25 mg Albuterol Albuterol No Albuterol Sulfate HFA Sulfate HFA Sulfate 108 (90 108 (90 HFA 108 Base) Base) (90 Base) MCG/ACT MCG/ACT MCG/ACT Tresiba Tresiba No Tresiba FlexTouch FlexTouch FlexTouch 200 UNIT/ML 200 UNIT/ML 200 UNIT/ML amLODIPine amLODIPine No 1{table QD amLODIPine Besylate 10 Besylate 10 t} Besylate MG MG 10 MG FeroSul 325 FeroSul 325 No FeroSul (65 Fe) MG (65 Fe) MG 325 (65 Fe) MG cloNIDine cloNIDine No cloNIDine HCl 0.3 MG HCl 0.3 MG HCl 0.3 MG Lotrisone Lotrisone No 1{appli BID Lotrisone 1-0.05 % 1-0.05 % cation_ 1-0.05 % to_affe cted_ar ea} Ezetimibe Ezetimibe No 1{table QD Ezetimibe 10 MG 10 MG t} 10 MG Januvia 100 Januvia 100 No 1{table QD Januvia mg mg t} 100 mg tiZANidine tiZANidine No tiZANidine HCl 2 MG HCl 2 MG HCl 2 MG Losartan Losartan No 1{table QD Losartan Potassium Potassium t} Potassium 100 MG 100 MG 100 MG Unifine Unifine No Unifine Pentips 32G Pentips 32G Pentips X 4 MM X 4 MM 32G X 4 MM Singulair Singulair No 1{table QD Singulair 10 MG 10 MG t} 10 MG OneTouch OneTouch No OneTouch Verio - Verio - Verio - Mobic 7.5 Mobic 7.5 No 1{table QD Mobic 7.5 MG MG t} MG Aspir-Low Aspir-Low No 1{table QD Aspir-Low 81 MG 81 MG t} 81 MG Tresiba Tresiba No Tresiba FlexTouch FlexTouch FlexTouch 200 UNIT/ML 200 UNIT/ML 200 UNIT/ML Ultram 50 Ultram 50 No 1{table QID Ultram 50 MG MG t_as_ne MG eded} Pravastatin Pravastatin No QD Pravastati Sodium 40 Sodium 40 n Sodium MG MG 40 MG Meclizine Meclizine No BID Meclizine HCl 25 mg HCl 25 mg HCl 25 mg NovoLOG NovoLOG No NovoLOG FlexPen 100 FlexPen 100 FlexPen UNIT/ML UNIT/ML 100 UNIT/ML Metoprolol Metoprolol No 1{table QD Metoprolol Succinate Succinate t} Succinate ER 50 MG ER 50 MG ER 50 MG hydrALAZINE hydrALAZINE No 1{table hydrALAZIN HCl 100 MG HCl 100 MG t} E HCl 100 MG hydroCHLORO hydroCHLORO No hydroCHLOR thiazide thiazide Othiazide 12.5 MG 12.5 MG 12.5 MG Levemir Levemir No Levemir FlexTouch FlexTouch FlexTouch 100 UNIT/ML 100 UNIT/ML 100 UNIT/ML Permethrin Permethrin No 1{appli Permethrin 5 % 5 % cation_ 5 % to_affe cted_ar ea} Toujeo Toujeo No QD Toujeo SoloStar SoloStar SoloStar 300u/ml 300u/ml 300u/ml Triamcinolo Triamcinolo No 1{appli BID Triamcinol ne ne cation_ one Acetonide Acetonide to_affe Acetonide 0.1 % 0.1 % cted_ar 0.1 % ea} Albuterol Albuterol No Albuterol Sulfate HFA Sulfate HFA Sulfate 108 (90 108 (90 HFA 108 Base) Base) (90 Base) MCG/ACT MCG/ACT MCG/ACT Losartan Losartan No 1{table QD Losartan Potassium Potassium t} Potassium 100 MG 100 MG 100 MG Plavix 75 Plavix 75 No 1{table QD Plavix 75 MG MG t} MG amLODIPine amLODIPine No 1{table QD amLODIPine Besylate 10 Besylate 10 t} Besylate MG MG 10 MG FeroSul 325 FeroSul 325 No FeroSul (65 Fe) MG (65 Fe) MG 325 (65 Fe) MG cloNIDine cloNIDine No cloNIDine HCl 0.3 MG HCl 0.3 MG HCl 0.3 MG Lotrisone Lotrisone No 1{appli BID Lotrisone 1-0.05 % 1-0.05 % cation_ 1-0.05 % to_affe cted_ar ea} Losartan Losartan No Losartan Potassium Potassium Potassium 100 MG 100 MG 100 MG Januvia 100 Januvia 100 No 1{table QD Januvia mg mg t} 100 mg tiZANidine tiZANidine No tiZANidine HCl 2 MG HCl 2 MG HCl 2 MG OneTouch OneTouch No OneTouch Verio - Verio - Verio - Unifine Unifine No Unifine Pentips 32G Pentips 32G Pentips X 4 MM X 4 MM 32G X 4 MM Ezetimibe Ezetimibe No 1{table QD Ezetimibe 10 MG 10 MG t} 10 MG hydroCHLORO hydroCHLORO No hydroCHLOR thiazide thiazide Othiazide 12.5 MG 12.5 MG 12.5 MG Mobic 7.5 Mobic 7.5 No 1{table QD Mobic 7.5 MG MG t} MG Aspir-Low Aspir-Low No 1{table QD Aspir-Low 81 MG 81 MG t} 81 MG Tresiba Tresiba No Tresiba FlexTouch FlexTouch FlexTouch 200 UNIT/ML 200 UNIT/ML 200 UNIT/ML Ultram 50 Ultram 50 No 1{table QID Ultram 50 MG MG t_as_ne MG eded} Pravastatin Pravastatin No QD Pravastati Sodium 40 Sodium 40 n Sodium MG MG 40 MG Meclizine Meclizine No BID Meclizine HCl 25 mg HCl 25 mg HCl 25 mg NovoLOG NovoLOG No NovoLOG FlexPen 100 FlexPen 100 FlexPen UNIT/ML UNIT/ML 100 UNIT/ML Montelukast Montelukast No Montelukas Sodium 10 Sodium 10 t Sodium MG MG 10 MG hydrALAZINE hydrALAZINE No 1{table hydrALAZIN HCl 100 MG HCl 100 MG t} E HCl 100 MG Levemir Levemir No Levemir FlexTouch FlexTouch FlexTouch 100 UNIT/ML 100 UNIT/ML 100 UNIT/ML Permethrin Permethrin No 1{appli Permethrin 5 % 5 % cation_ 5 % to_affe cted_ar ea} Toujeo Toujeo No QD Toujeo SoloStar SoloStar SoloStar 300u/ml 300u/ml 300u/ml Metoprolol Metoprolol No Metoprolol Succinate Succinate Succinate ER 50 MG ER 50 MG ER 50 MG Albuterol Albuterol No Albuterol Sulfate HFA Sulfate HFA Sulfate 108 (90 108 (90 HFA 108 Base) Base) (90 Base) MCG/ACT MCG/ACT MCG/ACT Triamcinolo Triamcinolo No 1{appli BID Triamcinol ne ne cation_ one Acetonide Acetonide to_affe Acetonide 0.1 % 0.1 % cted_ar 0.1 % ea} Plavix 75 Plavix 75 No 1{table QD Plavix 75 MG MG t} MG Permethrin Permethrin No 1{appli Permethrin 5 % 5 % cation_ 5 % to_affe cted_ar ea} Lotrisone Lotrisone No 1{appli BID Lotrisone 1-0.05 % 1-0.05 % cation_ 1-0.05 % to_affe cted_ar ea} amLODIPine amLODIPine No 1{table QD amLODIPine Besylate 10 Besylate 10 t} Besylate MG MG 10 MG Levemir Levemir No Levemir FlexTouch FlexTouch FlexTouch 100 UNIT/ML 100 UNIT/ML 100 UNIT/ML Albuterol Albuterol No Albuterol Sulfate HFA Sulfate HFA Sulfate 108 (90 108 (90 HFA 108 Base) Base) (90 Base) MCG/ACT MCG/ACT MCG/ACT Meclizine Meclizine No BID Meclizine HCl 25 mg HCl 25 mg HCl 25 mg Januvia 100 Januvia 100 No 1{table QD Januvia mg mg t} 100 mg Tresiba Tresiba No Tresiba FlexTouch FlexTouch FlexTouch 200 UNIT/ML 200 UNIT/ML 200 UNIT/ML Aspir-Low Aspir-Low No 1{table QD Aspir-Low 81 MG 81 MG t} 81 MG Unifine Unifine No Unifine Pentips 32G Pentips 32G Pentips X 4 MM X 4 MM 32G X 4 MM Toujeo Toujeo No QD Toujeo SoloStar SoloStar SoloStar 300u/ml 300u/ml 300u/ml cloNIDine cloNIDine No cloNIDine HCl 0.3 MG HCl 0.3 MG HCl 0.3 MG hydroCHLORO hydroCHLORO No hydroCHLOR thiazide thiazide Othiazide 12.5 MG 12.5 MG 12.5 MG Ezetimibe Ezetimibe No 1{table QD Ezetimibe 10 MG 10 MG t} 10 MG NovoLOG NovoLOG No NovoLOG FlexPen 100 FlexPen 100 FlexPen UNIT/ML UNIT/ML 100 UNIT/ML Mobic 7.5 Mobic 7.5 No 1{table QD Mobic 7.5 MG MG t} MG Plavix 75 Plavix 75 No 1{table QD Plavix 75 MG MG t} MG Pravastatin Pravastatin No QD Pravastati Sodium 40 Sodium 40 n Sodium MG MG 40 MG Montelukast Montelukast No Montelukas Sodium 10 Sodium 10 t Sodium MG MG 10 MG hydrALAZINE hydrALAZINE No 1{table hydrALAZIN HCl 100 MG HCl 100 MG t} E HCl 100 MG Ultram 50 Ultram 50 No 1{table QID Ultram 50 MG MG t_as_ne MG eded} OneTouch OneTouch No OneTouch Verio - Verio - Verio - tiZANidine tiZANidine No tiZANidine HCl 2 MG HCl 2 MG HCl 2 MG Triamcinolo Triamcinolo No 1{appli BID Triamcinol ne ne cation_ one Acetonide Acetonide to_affe Acetonide 0.1 % 0.1 % cted_ar 0.1 % ea} FeroSul 325 FeroSul 325 No FeroSul (65 Fe) MG (65 Fe) MG 325 (65 Fe) MG Metoprolol Metoprolol No Metoprolol Succinate Succinate Succinate ER 50 MG ER 50 MG ER 50 MG Losartan Losartan No Losartan Potassium Potassium Potassium 100 MG 100 MG 100 MG Permethrin Permethrin No 1{appli Permethrin 5 % 5 % cation_ 5 % to_affe cted_ar ea} Lotrisone Lotrisone No 1{appli BID Lotrisone 1-0.05 % 1-0.05 % cation_ 1-0.05 % to_affe cted_ar ea} Plavix Plavix Yes Radha 1 tablet Common [facility] Thaduvshade Kim Yes Radha 1 tablet Comm on [facility] Toujeo Toujeo Yes Radha 100 units Commo n SoloStar SoloStar Millender Sp dhaval [facility] Tresiba Tresiba Yes Radha as Common FlexTouch FlexTouch [facility] directed [facility] NovoLog NovoLog Yes Radha as Common Flexpen Flexpen Mill[facility] directed [facility] Unifine Unifine Yes Radha USE Common Pentips Pentips [facility] DIRECTED [facility] FOR [facility] BLOODSUGAR [facility] Amlodipine Amlodipine Yes Radha 1 tablet Common Besylate Besylate [facility] Sp dhaval [facility] Losartan Losartan Yes Radha 1 tablet Co mmon Potassium Potassium Mill[facility] Metoprolol Metoprolol Yes Radha 1 tablet Common Succinate Succinate [facility] ER ER [facility] Lotrisone Lotrisone Yes Radha 1 Comm on Millender applicatio Spir it n to - [facility] Pravastatin Pravastatin Yes Radha 1 tablet Common Sodium Sodium Millender in evenin S pirit [facility] Aspir-Low Aspir-Low Yes Radha 1 tablet Common Millender [facility] Ultram Ultram Yes Radha 1 tablet Common Millender as needed Spiri t - [facility] Levemir Levemir Yes Radha as Common FlexTouch FlexTouch Mill[facility] directed [facility] Fluconazole Fluconazole Yes Radha 1 tablet Common Millender [facility] Farxiga Farxiga Yes Radha 1 Common Millender [facility] Clonidine Clonidine Yes Radha 1 tablet Common HCl HCl Millender in evening Spir it - [facility] Jardiance Jardiance Yes Radha 1 tablet Common [facility] Trulicity Trulicity Yes Radha one Comm on Millender injection Spiri t - [facility] HydrALAZINE HydrALAZINE Yes Radha 1 tablet Common HCl HCl [facility] amLODIPine amLODIPine No 1{table QD amLODIPine Besylate 10 Besylate 10 t} Besylate MG MG 10 MG Levemir Levemir No Levemir FlexTouch FlexTouch FlexTouch 100 UNIT/ML 100 UNIT/ML 100 UNIT/ML Albuterol Albuterol No Albuterol Sulfate HFA Sulfate HFA Sulfate 108 (90 108 (90 HFA 108 Base) Base) (90 Base) MCG/ACT MCG/ACT MCG/ACT Meclizine Meclizine No BID Meclizine HCl 25 mg HCl 25 mg HCl 25 mg Januvia 100 Januvia 100 No 1{table QD Januvia mg mg t} 100 mg Tresiba Tresiba No Tresiba FlexTouch FlexTouch FlexTouch 200 UNIT/ML 200 UNIT/ML 200 UNIT/ML Aspir-Low Aspir-Low No 1{table QD Aspir-Low 81 MG 81 MG t} 81 MG Unifine Unifine No Unifine Pentips 32G Pentips 32G Pentips X 4 MM X 4 MM 32G X 4 MM Toujeo Toujeo No QD Toujeo SoloStar SoloStar SoloStar 300u/ml 300u/ml 300u/ml cloNIDine cloNIDine No cloNIDine HCl 0.3 MG HCl 0.3 MG HCl 0.3 MG hydroCHLORO hydroCHLORO No hydroCHLOR thiazide thiazide Othiazide 12.5 MG 12.5 MG 12.5 MG Ezetimibe Ezetimibe No 1{table QD Ezetimibe 10 MG 10 MG t} 10 MG NovoLOG NovoLOG No NovoLOG FlexPen 100 FlexPen 100 FlexPen UNIT/ML UNIT/ML 100 UNIT/ML Mobic 7.5 Mobic 7.5 No 1{table QD Mobic 7.5 MG MG t} MG Plavix 75 Plavix 75 No 1{table QD Plavix 75 MG MG t} MG Pravastatin Pravastatin No QD Pravastati Sodium 40 Sodium 40 n Sodium MG MG 40 MG Montelukast Montelukast No Montelukas Sodium 10 Sodium 10 t Sodium MG MG 10 MG hydrALAZINE hydrALAZINE No 1{table hydrALAZIN HCl 100 MG HCl 100 MG t} E HCl 100 MG Ultram 50 Ultram 50 No 1{table QID Ultram 50 MG MG t_as_ne MG eded} OneTouch OneTouch No OneTouch Verio - Verio - Verio - tiZANidine tiZANidine No tiZANidine HCl 2 MG HCl 2 MG HCl 2 MG Triamcinolo Triamcinolo No 1{appli BID Triamcinol ne ne cation_ one Acetonide Acetonide to_affe Acetonide 0.1 % 0.1 % cted_ar 0.1 % ea} FeroSul 325 FeroSul 325 No FeroSul (65 Fe) MG (65 Fe) MG 325 (65 Fe) MG Metoprolol Metoprolol No Metoprolol Succinate Succinate Succinate ER 50 MG ER 50 MG ER 50 MG Losartan Losartan No Losartan Potassium Potassium Potassium 100 MG 100 MG 100 MG Permethrin Permethrin No 1{appli Permethrin 5 % 5 % cation_ 5 % to_affe cted_ar ea} Lotrisone Lotrisone No 1{appli BID Lotrisone 1-0.05 % 1-0.05 % cation_ 1-0.05 % to_affe cted_ar ea} amLODIPine amLODIPine No 1{table QD amLODIPine Besylate 10 Besylate 10 t} Besylate MG MG 10 MG Levemir Levemir No Levemir FlexTouch FlexTouch FlexTouch 100 UNIT/ML 100 UNIT/ML 100 UNIT/ML Albuterol Albuterol No Albuterol Sulfate HFA Sulfate HFA Sulfate 108 (90 108 (90 HFA 108 Base) Base) (90 Base) MCG/ACT MCG/ACT MCG/ACT Meclizine Meclizine No BID Meclizine HCl 25 mg HCl 25 mg HCl 25 mg Januvia 100 Januvia 100 No 1{table QD Januvia mg mg t} 100 mg Tresiba Tresiba No Tresiba FlexTouch FlexTouch FlexTouch 200 UNIT/ML 200 UNIT/ML 200 UNIT/ML Aspir-Low Aspir-Low No 1{table QD Aspir-Low 81 MG 81 MG t} 81 MG Unifine Unifine No Unifine Pentips 32G Pentips 32G Pentips X 4 MM X 4 MM 32G X 4 MM Toujeo Toujeo No QD Toujeo SoloStar SoloStar SoloStar 300u/ml 300u/ml 300u/ml cloNIDine cloNIDine No cloNIDine HCl 0.3 MG HCl 0.3 MG HCl 0.3 MG hydroCHLORO hydroCHLORO No hydroCHLOR thiazide thiazide Othiazide 12.5 MG 12.5 MG 12.5 MG Ezetimibe Ezetimibe No 1{table QD Ezetimibe 10 MG 10 MG t} 10 MG NovoLOG NovoLOG No NovoLOG FlexPen 100 FlexPen 100 FlexPen UNIT/ML UNIT/ML 100 UNIT/ML Mobic 7.5 Mobic 7.5 No 1{table QD Mobic 7.5 MG MG t} MG Plavix 75 Plavix 75 No 1{table QD Plavix 75 MG MG t} MG Pravastatin Pravastatin No QD Pravastati Sodium 40 Sodium 40 n Sodium MG MG 40 MG Montelukast Montelukast No Montelukas Sodium 10 Sodium 10 t Sodium MG MG 10 MG hydrALAZINE hydrALAZINE No 1{table hydrALAZIN HCl 100 MG HCl 100 MG t} E HCl 100 MG Ultram 50 Ultram 50 No 1{table QID Ultram 50 MG MG t_as_ne MG eded} OneTouch OneTouch No OneTouch Verio - Verio - Verio - tiZANidine tiZANidine No tiZANidine HCl 2 MG HCl 2 MG HCl 2 MG Triamcinolo Triamcinolo No 1{appli BID Triamcinol ne ne cation_ one Acetonide Acetonide to_affe Acetonide 0.1 % 0.1 % cted_ar 0.1 % ea} FeroSul 325 FeroSul 325 No FeroSul (65 Fe) MG (65 Fe) MG 325 (65 Fe) MG Metoprolol Metoprolol No Metoprolol Succinate Succinate Succinate ER 50 MG ER 50 MG ER 50 MG Losartan Losartan No Losartan Potassium Potassium Potassium 100 MG 100 MG 100 MG Permethrin Permethrin No 1{appli Permethrin 5 % 5 % cation_ 5 % to_affe cted_ar ea} Tresiba Tresiba No Tresiba FlexTouch FlexTouch FlexTouch 200 UNIT/ML 200 UNIT/ML 200 UNIT/ML Levemir Levemir No Levemir FlexTouch FlexTouch FlexTouch 100 UNIT/ML 100 UNIT/ML 100 UNIT/ML Albuterol Albuterol No Albuterol Sulfate HFA Sulfate HFA Sulfate 108 (90 108 (90 HFA 108 Base) Base) (90 Base) MCG/ACT MCG/ACT MCG/ACT Mobic 7.5 Mobic 7.5 No 1{table QD Mobic 7.5 MG MG t} MG Ultram 50 Ultram 50 No 1{table QID Ultram 50 MG MG t_as_ne MG eded} Toujeo Toujeo No QD Toujeo SoloStar SoloStar SoloStar 300u/ml 300u/ml 300u/ml Unifine Unifine No Unifine Pentips 32G Pentips 32G Pentips X 4 MM X 4 MM 32G X 4 MM Aspir-Low Aspir-Low No 1{table QD Aspir-Low 81 MG 81 MG t} 81 MG FeroSul 325 FeroSul 325 No FeroSul (65 Fe) MG (65 Fe) MG 325 (65 Fe) MG hydrALAZINE hydrALAZINE No 1{table hydrALAZIN HCl 100 MG HCl 100 MG t} E HCl 100 MG tiZANidine tiZANidine No tiZANidine HCl 2 MG HCl 2 MG HCl 2 MG Plavix 75 Plavix 75 No 1{table QD Plavix 75 MG MG t} MG Pravastatin Pravastatin No QD Pravastati Sodium 40 Sodium 40 n Sodium MG MG 40 MG Januvia 100 Januvia 100 No 1{table QD Januvia mg mg t} 100 mg hydroCHLORO hydroCHLORO No hydroCHLOR thiazide thiazide Othiazide 12.5 MG 12.5 MG 12.5 MG NovoLOG NovoLOG No NovoLOG FlexPen 100 FlexPen 100 FlexPen UNIT/ML UNIT/ML 100 UNIT/ML Lotrisone Lotrisone No 1{appli BID Lotrisone 1-0.05 % 1-0.05 % cation_ 1-0.05 % to_affe cted_ar ea} Meclizine Meclizine No BID Meclizine HCl 25 mg HCl 25 mg HCl 25 mg cloNIDine cloNIDine No cloNIDine HCl 0.3 MG HCl 0.3 MG HCl 0.3 MG amLODIPine amLODIPine No 1{table QD amLODIPine Besylate 10 Besylate 10 t} Besylate MG MG 10 MG Ezetimibe Ezetimibe No 1{table QD Ezetimibe 10 MG 10 MG t} 10 MG OneTouch OneTouch No OneTouch Verio - Verio - Verio - Triamcinolo Triamcinolo No 1{appli BID Triamcinol ne ne cation_ one Acetonide Acetonide to_affe Acetonide 0.1 % 0.1 % cted_ar 0.1 % ea} Metoprolol Metoprolol No Metoprolol Succinate Succinate Succinate ER 50 MG ER 50 MG ER 50 MG Montelukast Montelukast No Montelukas Sodium 10 Sodium 10 t Sodium MG MG 10 MG Losartan Losartan No Losartan Potassium Potassium Potassium 100 MG 100 MG 100 MG Permethrin Permethrin No 1{appli Permethrin 5 % 5 % cation_ 5 % to_affe cted_ar ea} Lotrisone Lotrisone No 1{appli BID Lotrisone 1-0.05 % 1-0.05 % cation_ 1-0.05 % to_affe cted_ar ea} amLODIPine amLODIPine No 1{table QD amLODIPine Besylate 10 Besylate 10 t} Besylate MG MG 10 MG Levemir Levemir No Levemir FlexTouch FlexTouch FlexTouch 100 UNIT/ML 100 UNIT/ML 100 UNIT/ML Albuterol Albuterol No Albuterol Sulfate HFA Sulfate HFA Sulfate 108 (90 108 (90 HFA 108 Base) Base) (90 Base) MCG/ACT MCG/ACT MCG/ACT Meclizine Meclizine No BID Meclizine HCl 25 mg HCl 25 mg HCl 25 mg Januvia 100 Januvia 100 No 1{table QD Januvia mg mg t} 100 mg Tresiba Tresiba No Tresiba FlexTouch FlexTouch FlexTouch 200 UNIT/ML 200 UNIT/ML 200 UNIT/ML Aspir-Low Aspir-Low No 1{table QD Aspir-Low 81 MG 81 MG t} 81 MG Unifine Unifine No Unifine Pentips 32G Pentips 32G Pentips X 4 MM X 4 MM 32G X 4 MM Toujeo Toujeo No QD Toujeo SoloStar SoloStar SoloStar 300u/ml 300u/ml 300u/ml cloNIDine cloNIDine No cloNIDine HCl 0.3 MG HCl 0.3 MG HCl 0.3 MG hydroCHLORO hydroCHLORO No hydroCHLOR thiazide thiazide Othiazide 12.5 MG 12.5 MG 12.5 MG Ezetimibe Ezetimibe No 1{table QD Ezetimibe 10 MG 10 MG t} 10 MG NovoLOG NovoLOG No NovoLOG FlexPen 100 FlexPen 100 FlexPen UNIT/ML UNIT/ML 100 UNIT/ML Mobic 7.5 Mobic 7.5 No 1{table QD Mobic 7.5 MG MG t} MG Plavix 75 Plavix 75 No 1{table QD Plavix 75 MG MG t} MG Pravastatin Pravastatin No QD Pravastati Sodium 40 Sodium 40 n Sodium MG MG 40 MG Montelukast Montelukast No Montelukas Sodium 10 Sodium 10 t Sodium MG MG 10 MG hydrALAZINE hydrALAZINE No 1{table hydrALAZIN HCl 100 MG HCl 100 MG t} E HCl 100 MG Ultram 50 Ultram 50 No 1{table QID Ultram 50 MG MG t_as_ne MG eded} OneTouch OneTouch No OneTouch Verio - Verio - Verio - tiZANidine tiZANidine No tiZANidine HCl 2 MG HCl 2 MG HCl 2 MG Triamcinolo Triamcinolo No 1{appli BID Triamcinol ne ne cation_ one Acetonide Acetonide to_affe Acetonide 0.1 % 0.1 % cted_ar 0.1 % ea} FeroSul 325 FeroSul 325 No FeroSul (65 Fe) MG (65 Fe) MG 325 (65 Fe) MG Metoprolol Metoprolol No Metoprolol Succinate Succinate Succinate ER 50 MG ER 50 MG ER 50 MG Losartan Losartan No Losartan Potassium Potassium Potassium 100 MG 100 MG 100 MG Pravastatin Pravastatin No QD Pravastati Sodium 40 Sodium 40 n Sodium MG MG 40 MG cloNIDine cloNIDine No cloNIDine HCl 0.3 MG HCl 0.3 MG HCl 0.3 MG Metoprolol Metoprolol No 1{table QD Metoprolol Succinate Succinate t} Succinate ER 50 MG ER 50 MG ER 50 MG Losartan Losartan No 1{table QD Losartan Potassium Potassium t} Potassium 100 MG 100 MG 100 MG Ezetimibe Ezetimibe No 1{table QD Ezetimibe 10 MG 10 MG t} 10 MG Unifine Unifine No Unifine Pentips 32G Pentips 32G Pentips X 4 MM X 4 MM 32G X 4 MM NovoLOG NovoLOG No NovoLOG FlexPen 100 FlexPen 100 FlexPen UNIT/ML UNIT/ML 100 UNIT/ML Albuterol Albuterol No Albuterol Sulfate HFA Sulfate HFA Sulfate 108 (90 108 (90 HFA 108 Base) Base) (90 Base) MCG/ACT MCG/ACT MCG/ACT Plavix 75 Plavix 75 No 1{table QD Plavix 75 MG MG t} MG Januvia 100 Januvia 100 No 1{table QD Januvia mg mg t} 100 mg Lotrisone Lotrisone No 1{appli BID Lotrisone 1-0.05 % 1-0.05 % cation_ 1-0.05 % to_affe cted_ar ea} hydrALAZINE hydrALAZINE No 1{table hydrALAZIN HCl 100 MG HCl 100 MG t} E HCl 100 MG Singulair Singulair No 1{table QD Singulair 10 MG 10 MG t} 10 MG Losartan Losartan No 1{table QD Losartan Potassium Potassium t} Potassium 100 MG 100 MG 100 MG Meclizine Meclizine No BID Meclizine HCl 25 mg HCl 25 mg HCl 25 mg Ultram 50 Ultram 50 No 1{table QID Ultram 50 MG MG t_as_ne MG eded} Tresiba Tresiba No Tresiba FlexTouch FlexTouch FlexTouch 200 UNIT/ML 200 UNIT/ML 200 UNIT/ML Toujeo Toujeo No QD Toujeo SoloStar SoloStar SoloStar 300u/ml 300u/ml 300u/ml Levemir Levemir No Levemir FlexTouch FlexTouch FlexTouch 100 UNIT/ML 100 UNIT/ML 100 UNIT/ML amLODIPine amLODIPine No 1{table QD amLODIPine Besylate 10 Besylate 10 t} Besylate MG MG 10 MG tiZANidine tiZANidine No tiZANidine HCl 2 MG HCl 2 MG HCl 2 MG Aspir-Low Aspir-Low No 1{table QD Aspir-Low 81 MG 81 MG t} 81 MG Albuterol Albuterol No Albuterol Sulfate HFA Sulfate HFA Sulfate 108 (90 108 (90 HFA 108 Base) Base) (90 Base) MCG/ACT MCG/ACT MCG/ACT cloNIDine cloNIDine No cloNIDine HCl 0.3 MG HCl 0.3 MG HCl 0.3 MG Tresiba Tresiba No Tresiba FlexTouch FlexTouch FlexTouch 200 UNIT/ML 200 UNIT/ML 200 UNIT/ML Toujeo Toujeo No QD Toujeo SoloStar SoloStar SoloStar 300u/ml 300u/ml 300u/ml Aspir-Low Aspir-Low No 1{table QD Aspir-Low 81 MG 81 MG t} 81 MG Levemir Levemir No Levemir FlexTouch FlexTouch FlexTouch 100 UNIT/ML 100 UNIT/ML 100 UNIT/ML Meclizine Meclizine No BID Meclizine HCl 25 mg HCl 25 mg HCl 25 mg Plavix 75 Plavix 75 No 1{table QD Plavix 75 MG MG t} MG Losartan Losartan No 1{table QD Losartan Potassium Potassium t} Potassium 100 MG 100 MG 100 MG Losartan Losartan No 1{table QD Losartan Potassium Potassium t} Potassium 100 MG 100 MG 100 MG amLODIPine amLODIPine No 1{table QD amLODIPine Besylate 10 Besylate 10 t} Besylate MG MG 10 MG Unifine Unifine No Unifine Pentips 32G Pentips 32G Pentips X 4 MM X 4 MM 32G X 4 MM NovoLOG NovoLOG No NovoLOG FlexPen 100 FlexPen 100 FlexPen UNIT/ML UNIT/ML 100 UNIT/ML Lotrisone Lotrisone No 1{appli BID Lotrisone 1-0.05 % 1-0.05 % cation_ 1-0.05 % to_affe cted_ar ea} Ultram 50 Ultram 50 No 1{table QID Ultram 50 MG MG t_as_ne MG eded} Januvia 100 Januvia 100 No 1{table QD Januvia mg mg t} 100 mg Metoprolol Metoprolol No 1{table QD Metoprolol Succinate Succinate t} Succinate ER 50 MG ER 50 MG ER 50 MG Permethrin Permethrin No 1{appli Permethrin 5 % 5 % cation_ 5 % to_affe cted_ar ea} Pravastatin Pravastatin No QD Pravastati Sodium 40 Sodium 40 n Sodium MG MG 40 MG Singulair Singulair No 1{table QD Singulair 10 MG 10 MG t} 10 MG hydrALAZINE hydrALAZINE No 1{table hydrALAZIN HCl 100 MG HCl 100 MG t} E HCl 100 MG Ezetimibe Ezetimibe No 1{table QD Ezetimibe 10 MG 10 MG t} 10 MG tiZANidine tiZANidine No tiZANidine HCl 2 MG HCl 2 MG HCl 2 MG cloNIDine cloNIDine No cloNIDine HCl 0.3 MG HCl 0.3 MG HCl 0.3 MG Aspir-Low Aspir-Low No 1{table QD Aspir-Low 81 MG 81 MG t} 81 MG Toujeo Toujeo No QD Toujeo SoloStar SoloStar SoloStar 300u/ml 300u/ml 300u/ml Ultram 50 Ultram 50 No 1{table QID Ultram 50 MG MG t_as_ne MG eded} Meclizine Meclizine No BID Meclizine HCl 25 mg HCl 25 mg HCl 25 mg Levemir Levemir No Levemir FlexTouch FlexTouch FlexTouch 100 UNIT/ML 100 UNIT/ML 100 UNIT/ML Metoprolol Metoprolol No Metoprolol Succinate Succinate Succinate ER 50 MG ER 50 MG ER 50 MG Lotrisone Lotrisone No 1{appli BID Lotrisone 1-0.05 % 1-0.05 % cation_ 1-0.05 % to_affe cted_ar ea} Plavix 75 Plavix 75 No 1{table QD Plavix 75 MG MG t} MG Losartan Losartan No 1{table QD Losartan Potassium Potassium t} Potassium 100 MG 100 MG 100 MG Tresiba Tresiba No Tresiba FlexTouch FlexTouch FlexTouch 200 UNIT/ML 200 UNIT/ML 200 UNIT/ML Januvia 100 Januvia 100 No 1{table QD Januvia mg mg t} 100 mg Pravastatin Pravastatin No QD Pravastati Sodium 40 Sodium 40 n Sodium MG MG 40 MG amLODIPine amLODIPine No 1{table QD amLODIPine Besylate 10 Besylate 10 t} Besylate MG MG 10 MG Unifine Unifine No Unifine Pentips 32G Pentips 32G Pentips X 4 MM X 4 MM 32G X 4 MM NovoLOG NovoLOG No NovoLOG FlexPen 100 FlexPen 100 FlexPen UNIT/ML UNIT/ML 100 UNIT/ML Albuterol Albuterol No Albuterol Sulfate HFA Sulfate HFA Sulfate 108 (90 108 (90 HFA 108 Base) Base) (90 Base) MCG/ACT MCG/ACT MCG/ACT Losartan Losartan No 1{table QD Losartan Potassium Potassium t} Potassium 100 MG 100 MG 100 MG Singulair Singulair No 1{table QD Singulair 10 MG 10 MG t} 10 MG hydrALAZINE hydrALAZINE No 1{table hydrALAZIN HCl 100 MG HCl 100 MG t} E HCl 100 MG Ezetimibe Ezetimibe No 1{table QD Ezetimibe 10 MG 10 MG t} 10 MG tiZANidine tiZANidine No tiZANidine HCl 2 MG HCl 2 MG HCl 2 MG Tresiba Tresiba No Tresiba FlexTouch FlexTouch FlexTouch 200 UNIT/ML 200 UNIT/ML 200 UNIT/ML Toujeo Toujeo No QD Toujeo SoloStar SoloStar SoloStar 300u/ml 300u/ml 300u/ml Unifine Unifine No Unifine Pentips 32G Pentips 32G Pentips X 4 MM X 4 MM 32G X 4 MM hydrALAZINE hydrALAZINE No 1{table hydrALAZIN HCl 100 MG HCl 100 MG t} E HCl 100 MG Meclizine Meclizine No BID Meclizine HCl 25 mg HCl 25 mg HCl 25 mg Levemir Levemir No Levemir FlexTouch FlexTouch FlexTouch 100 UNIT/ML 100 UNIT/ML 100 UNIT/ML Ultram 50 Ultram 50 No 1{table QID Ultram 50 MG MG t_as_ne MG eded} Ezetimibe Ezetimibe No 1{table QD Ezetimibe 10 MG 10 MG t} 10 MG cloNIDine cloNIDine No cloNIDine HCl 0.3 MG HCl 0.3 MG HCl 0.3 MG tiZANidine tiZANidine No tiZANidine HCl 2 MG HCl 2 MG HCl 2 MG Metoprolol Metoprolol No 1{table QD Metoprolol Succinate Succinate t} Succinate ER 50 MG ER 50 MG ER 50 MG Losartan Losartan No 1{table QD Losartan Potassium Potassium t} Potassium 100 MG 100 MG 100 MG Albuterol Albuterol No Albuterol Sulfate HFA Sulfate HFA Sulfate 108 (90 108 (90 HFA 108 Base) Base) (90 Base) MCG/ACT MCG/ACT MCG/ACT Aspir-Low Aspir-Low No 1{table QD Aspir-Low 81 MG 81 MG t} 81 MG Metoprolol Metoprolol No Metoprolol Succinate Succinate Succinate ER 50 MG ER 50 MG ER 50 MG amLODIPine amLODIPine No 1{table QD amLODIPine Besylate 10 Besylate 10 t} Besylate MG MG 10 MG Singulair Singulair No 1{table QD Singulair 10 MG 10 MG t} 10 MG tiZANidine tiZANidine No QD tiZANidine HCl 2 MG HCl 2 MG HCl 2 MG Ferrous Ferrous No 1{table QD Ferrous Sulfate 325 Sulfate 325 t} Sulfate (65 Fe) mg (65 Fe) mg 325 (65 Fe) mg Losartan Losartan No 1{table QD Losartan Potassium Potassium t} Potassium 100 MG 100 MG 100 MG Januvia 100 Januvia 100 No 1{table QD Januvia mg mg t} 100 mg cloNIDine cloNIDine No QD cloNIDine HCl 0.3 MG HCl 0.3 MG HCl 0.3 MG Lotrisone Lotrisone No 1{appli BID Lotrisone 1-0.05 % 1-0.05 % cation_ 1-0.05 % to_affe cted_ar ea} NovoLOG NovoLOG No NovoLOG FlexPen 100 FlexPen 100 FlexPen UNIT/ML UNIT/ML 100 UNIT/ML Permethrin Permethrin No 1{appli Permethrin 5 % 5 % cation_ 5 % to_affe cted_ar ea} Plavix 75 Plavix 75 No 1{table QD Plavix 75 MG MG t} MG Pravastatin Pravastatin No QD Pravastati Sodium 40 Sodium 40 n Sodium MG MG 40 MG Albuterol Albuterol No Albuterol Sulfate HFA Sulfate HFA Sulfate 108 (90 108 (90 HFA 108 Base) Base) (90 Base) MCG/ACT MCG/ACT MCG/ACT Ferrous Ferrous No 1{table QD Ferrous Sulfate 325 Sulfate 325 t} Sulfate (65 Fe) mg (65 Fe) mg 325 (65 Fe) mg Januvia 100 Januvia 100 No 1{table QD Januvia mg mg t} 100 mg tiZANidine tiZANidine No tiZANidine HCl 2 MG HCl 2 MG HCl 2 MG Meclizine Meclizine No BID Meclizine HCl 25 mg HCl 25 mg HCl 25 mg hydrALAZINE hydrALAZINE No 1{table hydrALAZIN HCl 100 MG HCl 100 MG t} E HCl 100 MG Tresiba Tresiba No Tresiba FlexTouch FlexTouch FlexTouch 200 UNIT/ML 200 UNIT/ML 200 UNIT/ML Ezetimibe Ezetimibe No 1{table QD Ezetimibe 10 MG 10 MG t} 10 MG cloNIDine cloNIDine No QD cloNIDine HCl 0.3 MG HCl 0.3 MG HCl 0.3 MG Unifine Unifine No Unifine Pentips 32G Pentips 32G Pentips X 4 MM X 4 MM 32G X 4 MM Losartan Losartan No 1{table QD Losartan Potassium Potassium t} Potassium 100 MG 100 MG 100 MG amLODIPine amLODIPine No 1{table QD amLODIPine Besylate 10 Besylate 10 t} Besylate MG MG 10 MG Losartan Losartan No 1{table QD Losartan Potassium Potassium t} Potassium 100 MG 100 MG 100 MG Mobic 7.5 Mobic 7.5 No 1{table QD Mobic 7.5 MG MG t} MG Ultram 50 Ultram 50 No 1{table QID Ultram 50 MG MG t_as_ne MG eded} Toujeo Toujeo No QD Toujeo SoloStar SoloStar SoloStar 300u/ml 300u/ml 300u/ml Metoprolol Metoprolol No Metoprolol Succinate Succinate Succinate ER 50 MG ER 50 MG ER 50 MG Lotrisone Lotrisone No 1{appli BID Lotrisone 1-0.05 % 1-0.05 % cation_ 1-0.05 % to_affe cted_ar ea} Aspir-Low Aspir-Low No 1{table QD Aspir-Low 81 MG 81 MG t} 81 MG Levemir Levemir No Levemir FlexTouch FlexTouch FlexTouch 100 UNIT/ML 100 UNIT/ML 100 UNIT/ML Permethrin Permethrin No 1{appli Permethrin 5 % 5 % cation_ 5 % to_affe cted_ar ea} cloNIDine cloNIDine No cloNIDine HCl 0.3 MG HCl 0.3 MG HCl 0.3 MG Plavix 75 Plavix 75 No 1{table QD Plavix 75 MG MG t} MG Pravastatin Pravastatin No QD Pravastati Sodium 40 Sodium 40 n Sodium MG MG 40 MG NovoLOG NovoLOG No NovoLOG FlexPen 100 FlexPen 100 FlexPen UNIT/ML UNIT/ML 100 UNIT/ML Metoprolol Metoprolol No 1{table QD Metoprolol Succinate Succinate t} Succinate ER 50 MG ER 50 MG ER 50 MG Singulair Singulair No 1{table QD Singulair 10 MG 10 MG t} 10 MG Albuterol Albuterol No Albuterol Sulfate HFA Sulfate HFA Sulfate 108 (90 108 (90 HFA 108 Base) Base) (90 Base) MCG/ACT MCG/ACT MCG/ACT Ferrous Ferrous No 1{table QD Ferrous Sulfate 325 Sulfate 325 t} Sulfate (65 Fe) mg (65 Fe) mg 325 (65 Fe) mg Januvia 100 Januvia 100 No 1{table QD Januvia mg mg t} 100 mg tiZANidine tiZANidine No tiZANidine HCl 2 MG HCl 2 MG HCl 2 MG Meclizine Meclizine No BID Meclizine HCl 25 mg HCl 25 mg HCl 25 mg hydrALAZINE hydrALAZINE No 1{table hydrALAZIN HCl 100 MG HCl 100 MG t} E HCl 100 MG Tresiba Tresiba No Tresiba FlexTouch FlexTouch FlexTouch 200 UNIT/ML 200 UNIT/ML 200 UNIT/ML Ezetimibe Ezetimibe No 1{table QD Ezetimibe 10 MG 10 MG t} 10 MG cloNIDine cloNIDine No QD cloNIDine HCl 0.3 MG HCl 0.3 MG HCl 0.3 MG Unifine Unifine No Unifine Pentips 32G Pentips 32G Pentips X 4 MM X 4 MM 32G X 4 MM Losartan Losartan No 1{table QD Losartan Potassium Potassium t} Potassium 100 MG 100 MG 100 MG amLODIPine amLODIPine No 1{table QD amLODIPine Besylate 10 Besylate 10 t} Besylate MG MG 10 MG Losartan Losartan No 1{table QD Losartan Potassium Potassium t} Potassium 100 MG 100 MG 100 MG Mobic 7.5 Mobic 7.5 No 1{table QD Mobic 7.5 MG MG t} MG Ultram 50 Ultram 50 No 1{table QID Ultram 50 MG MG t_as_ne MG eded} Toujeo Toujeo No QD Toujeo SoloStar SoloStar SoloStar 300u/ml 300u/ml 300u/ml Metoprolol Metoprolol No Metoprolol Succinate Succinate Succinate ER 50 MG ER 50 MG ER 50 MG Lotrisone Lotrisone No 1{appli BID Lotrisone 1-0.05 % 1-0.05 % cation_ 1-0.05 % to_affe cted_ar ea} Aspir-Low Aspir-Low No 1{table QD Aspir-Low 81 MG 81 MG t} 81 MG Levemir Levemir No Levemir FlexTouch FlexTouch FlexTouch 100 UNIT/ML 100 UNIT/ML 100 UNIT/ML Permethrin Permethrin No 1{appli Permethrin 5 % 5 % cation_ 5 % to_affe cted_ar ea} cloNIDine cloNIDine No cloNIDine HCl 0.3 MG HCl 0.3 MG HCl 0.3 MG Plavix 75 Plavix 75 No 1{table QD Plavix 75 MG MG t} MG Pravastatin Pravastatin No QD Pravastati Sodium 40 Sodium 40 n Sodium MG MG 40 MG NovoLOG NovoLOG No NovoLOG FlexPen 100 FlexPen 100 FlexPen UNIT/ML UNIT/ML 100 UNIT/ML Metoprolol Metoprolol No 1{table QD Metoprolol Succinate Succinate t} Succinate ER 50 MG ER 50 MG ER 50 MG Singulair Singulair No 1{table QD Singulair 10 MG 10 MG t} 10 MG Albuterol Albuterol No Albuterol Sulfate HFA Sulfate HFA Sulfate 108 (90 108 (90 HFA 108 Base) Base) (90 Base) MCG/ACT MCG/ACT MCG/ACT Ferrous Ferrous No 1{table QD Ferrous Sulfate 325 Sulfate 325 t} Sulfate (65 Fe) mg (65 Fe) mg 325 (65 Fe) mg Januvia 100 Januvia 100 No 1{table QD Januvia mg mg t} 100 mg tiZANidine tiZANidine No tiZANidine HCl 2 MG HCl 2 MG HCl 2 MG Meclizine Meclizine No BID Meclizine HCl 25 mg HCl 25 mg HCl 25 mg hydrALAZINE hydrALAZINE No 1{table hydrALAZIN HCl 100 MG HCl 100 MG t} E HCl 100 MG Tresiba Tresiba No Tresiba FlexTouch FlexTouch FlexTouch 200 UNIT/ML 200 UNIT/ML 200 UNIT/ML Ezetimibe Ezetimibe No 1{table QD Ezetimibe 10 MG 10 MG t} 10 MG cloNIDine cloNIDine No QD cloNIDine HCl 0.3 MG HCl 0.3 MG HCl 0.3 MG Unifine Unifine No Unifine Pentips 32G Pentips 32G Pentips X 4 MM X 4 MM 32G X 4 MM Losartan Losartan No 1{table QD Losartan Potassium Potassium t} Potassium 100 MG 100 MG 100 MG amLODIPine amLODIPine No 1{table QD amLODIPine Besylate 10 Besylate 10 t} Besylate MG MG 10 MG Losartan Losartan No 1{table QD Losartan Potassium Potassium t} Potassium 100 MG 100 MG 100 MG Mobic 7.5 Mobic 7.5 No 1{table QD Mobic 7.5 MG MG t} MG Ultram 50 Ultram 50 No 1{table QID Ultram 50 MG MG t_as_ne MG eded} Toujeo Toujeo No QD Toujeo SoloStar SoloStar SoloStar 300u/ml 300u/ml 300u/ml Metoprolol Metoprolol No Metoprolol Succinate Succinate Succinate ER 50 MG ER 50 MG ER 50 MG Lotrisone Lotrisone No 1{appli BID Lotrisone 1-0.05 % 1-0.05 % cation_ 1-0.05 % to_affe cted_ar ea} Aspir-Low Aspir-Low No 1{table QD Aspir-Low 81 MG 81 MG t} 81 MG Levemir Levemir No Levemir FlexTouch FlexTouch FlexTouch 100 UNIT/ML 100 UNIT/ML 100 UNIT/ML Permethrin Permethrin No 1{appli Permethrin 5 % 5 % cation_ 5 % to_affe cted_ar ea} cloNIDine cloNIDine No cloNIDine HCl 0.3 MG HCl 0.3 MG HCl 0.3 MG Plavix 75 Plavix 75 No 1{table QD Plavix 75 MG MG t} MG Pravastatin Pravastatin No QD Pravastati Sodium 40 Sodium 40 n Sodium MG MG 40 MG NovoLOG NovoLOG No NovoLOG FlexPen 100 FlexPen 100 FlexPen UNIT/ML UNIT/ML 100 UNIT/ML Metoprolol Metoprolol No 1{table QD Metoprolol Succinate Succinate t} Succinate ER 50 MG ER 50 MG ER 50 MG Singulair Singulair No 1{table QD Singulair 10 MG 10 MG t} 10 MG Albuterol Albuterol No Albuterol Sulfate HFA Sulfate HFA Sulfate 108 (90 108 (90 HFA 108 Base) Base) (90 Base) MCG/ACT MCG/ACT MCG/ACT Ferrous Ferrous No 1{table QD Ferrous Sulfate 325 Sulfate 325 t} Sulfate (65 Fe) mg (65 Fe) mg 325 (65 Fe) mg Januvia 100 Januvia 100 No 1{table QD Januvia mg mg t} 100 mg tiZANidine tiZANidine No tiZANidine HCl 2 MG HCl 2 MG HCl 2 MG Meclizine Meclizine No BID Meclizine HCl 25 mg HCl 25 mg HCl 25 mg hydrALAZINE hydrALAZINE No 1{table hydrALAZIN HCl 100 MG HCl 100 MG t} E HCl 100 MG Tresiba Tresiba No Tresiba FlexTouch FlexTouch FlexTouch 200 UNIT/ML 200 UNIT/ML 200 UNIT/ML Ezetimibe Ezetimibe No 1{table QD Ezetimibe 10 MG 10 MG t} 10 MG cloNIDine cloNIDine No QD cloNIDine HCl 0.3 MG HCl 0.3 MG HCl 0.3 MG Unifine Unifine No Unifine Pentips 32G Pentips 32G Pentips X 4 MM X 4 MM 32G X 4 MM Losartan Losartan No 1{table QD Losartan Potassium Potassium t} Potassium 100 MG 100 MG 100 MG amLODIPine amLODIPine No 1{table QD amLODIPine Besylate 10 Besylate 10 t} Besylate MG MG 10 MG Losartan Losartan No 1{table QD Losartan Potassium Potassium t} Potassium 100 MG 100 MG 100 MG Mobic 7.5 Mobic 7.5 No 1{table QD Mobic 7.5 MG MG t} MG Ultram 50 Ultram 50 No 1{table QID Ultram 50 MG MG t_as_ne MG eded} Toujeo Toujeo No QD Toujeo SoloStar SoloStar SoloStar 300u/ml 300u/ml 300u/ml Metoprolol Metoprolol No Metoprolol Succinate Succinate Succinate ER 50 MG ER 50 MG ER 50 MG Lotrisone Lotrisone No 1{appli BID Lotrisone 1-0.05 % 1-0.05 % cation_ 1-0.05 % to_affe cted_ar ea} Aspir-Low Aspir-Low No 1{table QD Aspir-Low 81 MG 81 MG t} 81 MG Levemir Levemir No Levemir FlexTouch FlexTouch FlexTouch 100 UNIT/ML 100 UNIT/ML 100 UNIT/ML Permethrin Permethrin No 1{appli Permethrin 5 % 5 % cation_ 5 % to_affe cted_ar ea} cloNIDine cloNIDine No cloNIDine HCl 0.3 MG HCl 0.3 MG HCl 0.3 MG Plavix 75 Plavix 75 No 1{table QD Plavix 75 MG MG t} MG Pravastatin Pravastatin No QD Pravastati Sodium 40 Sodium 40 n Sodium MG MG 40 MG NovoLOG NovoLOG No NovoLOG FlexPen 100 FlexPen 100 FlexPen UNIT/ML UNIT/ML 100 UNIT/ML Metoprolol Metoprolol No 1{table QD Metoprolol Succinate Succinate t} Succinate ER 50 MG ER 50 MG ER 50 MG Singulair Singulair No 1{table QD Singulair 10 MG 10 MG t} 10 MG tiZANidine tiZANidine No tiZANidine HCl 2 MG HCl 2 MG HCl 2 MG Ferrous Ferrous No 1{table QD Ferrous Sulfate 325 Sulfate 325 t} Sulfate (65 Fe) mg (65 Fe) mg 325 (65 Fe) mg cloNIDine cloNIDine No QD cloNIDine HCl 0.3 MG HCl 0.3 MG HCl 0.3 MG Levemir Levemir No Levemir FlexTouch FlexTouch FlexTouch 100 UNIT/ML 100 UNIT/ML 100 UNIT/ML Tresiba Tresiba No Tresiba FlexTouch FlexTouch FlexTouch 200 UNIT/ML 200 UNIT/ML 200 UNIT/ML hydrALAZINE hydrALAZINE No 1{table hydrALAZIN HCl 100 MG HCl 100 MG t} E HCl 100 MG Albuterol Albuterol No Albuterol Sulfate HFA Sulfate HFA Sulfate 108 (90 108 (90 HFA 108 Base) Base) (90 Base) MCG/ACT MCG/ACT MCG/ACT Ezetimibe Ezetimibe No 1{table QD Ezetimibe 10 MG 10 MG t} 10 MG cloNIDine cloNIDine No QD cloNIDine HCl 0.3 MG HCl 0.3 MG HCl 0.3 MG Meclizine Meclizine No BID Meclizine HCl 25 mg HCl 25 mg HCl 25 mg Losartan Losartan No 1{table QD Losartan Potassium Potassium t} Potassium 100 MG 100 MG 100 MG Lotrisone Lotrisone No 1{appli BID Lotrisone 1-0.05 % 1-0.05 % cation_ 1-0.05 % to_affe cted_ar ea} amLODIPine amLODIPine No 1{table QD amLODIPine Besylate 10 Besylate 10 t} Besylate MG MG 10 MG Mobic 7.5 Mobic 7.5 No 1{table QD Mobic 7.5 MG MG t} MG Aspir-Low Aspir-Low No 1{table QD Aspir-Low 81 MG 81 MG t} 81 MG Metoprolol Metoprolol No Metoprolol Succinate Succinate Succinate ER 50 MG ER 50 MG ER 50 MG Ultram 50 Ultram 50 No 1{table QID Ultram 50 MG MG t_as_ne MG eded} Unifine Unifine No Unifine Pentips 32G Pentips 32G Pentips X 4 MM X 4 MM 32G X 4 MM Toujeo Toujeo No QD Toujeo SoloStar SoloStar SoloStar 300u/ml 300u/ml 300u/ml Permethrin Permethrin No 1{appli Permethrin 5 % 5 % cation_ 5 % to_affe cted_ar ea} Januvia 100 Januvia 100 No 1{table QD Januvia mg mg t} 100 mg Losartan Losartan No 1{table QD Losartan Potassium Potassium t} Potassium 100 MG 100 MG 100 MG Plavix 75 Plavix 75 No 1{table QD Plavix 75 MG MG t} MG Pravastatin Pravastatin No QD Pravastati Sodium 40 Sodium 40 n Sodium MG MG 40 MG NovoLOG NovoLOG No NovoLOG FlexPen 100 FlexPen 100 FlexPen UNIT/ML UNIT/ML 100 UNIT/ML Metoprolol Metoprolol No 1{table QD Metoprolol Succinate Succinate t} Succinate ER 50 MG ER 50 MG ER 50 MG Singulair Singulair No 1{table QD Singulair 10 MG 10 MG t} 10 MG tiZANidine tiZANidine No tiZANidine HCl 2 MG HCl 2 MG HCl 2 MG Ferrous Ferrous No 1{table QD Ferrous Sulfate 325 Sulfate 325 t} Sulfate (65 Fe) mg (65 Fe) mg 325 (65 Fe) mg cloNIDine cloNIDine No QD cloNIDine HCl 0.3 MG HCl 0.3 MG HCl 0.3 MG Levemir Levemir No Levemir FlexTouch FlexTouch FlexTouch 100 UNIT/ML 100 UNIT/ML 100 UNIT/ML Tresiba Tresiba No Tresiba FlexTouch FlexTouch FlexTouch 200 UNIT/ML 200 UNIT/ML 200 UNIT/ML hydrALAZINE hydrALAZINE No 1{table hydrALAZIN HCl 100 MG HCl 100 MG t} E HCl 100 MG Albuterol Albuterol No Albuterol Sulfate HFA Sulfate HFA Sulfate 108 (90 108 (90 HFA 108 Base) Base) (90 Base) MCG/ACT MCG/ACT MCG/ACT Ezetimibe Ezetimibe No 1{table QD Ezetimibe 10 MG 10 MG t} 10 MG cloNIDine cloNIDine No QD cloNIDine HCl 0.3 MG HCl 0.3 MG HCl 0.3 MG Meclizine Meclizine No BID Meclizine HCl 25 mg HCl 25 mg HCl 25 mg Losartan Losartan No 1{table QD Losartan Potassium Potassium t} Potassium 100 MG 100 MG 100 MG Lotrisone Lotrisone No 1{appli BID Lotrisone 1-0.05 % 1-0.05 % cation_ 1-0.05 % to_affe cted_ar ea} amLODIPine amLODIPine No 1{table QD amLODIPine Besylate 10 Besylate 10 t} Besylate MG MG 10 MG Mobic 7.5 Mobic 7.5 No 1{table QD Mobic 7.5 MG MG t} MG Aspir-Low Aspir-Low No 1{table QD Aspir-Low 81 MG 81 MG t} 81 MG Metoprolol Metoprolol No Metoprolol Succinate Succinate Succinate ER 50 MG ER 50 MG ER 50 MG Ultram 50 Ultram 50 No 1{table QID Ultram 50 MG MG t_as_ne MG eded} Unifine Unifine No Unifine Pentips 32G Pentips 32G Pentips X 4 MM X 4 MM 32G X 4 MM Toujeo Toujeo No QD Toujeo SoloStar SoloStar SoloStar 300u/ml 300u/ml 300u/ml Permethrin Permethrin No 1{appli Permethrin 5 % 5 % cation_ 5 % to_affe cted_ar ea} Januvia 100 Januvia 100 No 1{table QD Januvia mg mg t} 100 mg Losartan Losartan No 1{table QD Losartan Potassium Potassium t} Potassium 100 MG 100 MG 100 MG Plavix 75 Plavix 75 No 1{table QD Plavix 75 MG MG t} MG Pravastatin Pravastatin No QD Pravastati Sodium 40 Sodium 40 n Sodium MG MG 40 MG NovoLOG NovoLOG No NovoLOG FlexPen 100 FlexPen 100 FlexPen UNIT/ML UNIT/ML 100 UNIT/ML Metoprolol Metoprolol No 1{table QD Metoprolol Succinate Succinate t} Succinate ER 50 MG ER 50 MG ER 50 MG Singulair Singulair No 1{table QD Singulair 10 MG 10 MG t} 10 MG tiZANidine tiZANidine No tiZANidine HCl 2 MG HCl 2 MG HCl 2 MG Ferrous Ferrous No 1{table QD Ferrous Sulfate 325 Sulfate 325 t} Sulfate (65 Fe) mg (65 Fe) mg 325 (65 Fe) mg cloNIDine cloNIDine No QD cloNIDine HCl 0.3 MG HCl 0.3 MG HCl 0.3 MG Levemir Levemir No Levemir FlexTouch FlexTouch FlexTouch 100 UNIT/ML 100 UNIT/ML 100 UNIT/ML Tresiba Tresiba No Tresiba FlexTouch FlexTouch FlexTouch 200 UNIT/ML 200 UNIT/ML 200 UNIT/ML hydrALAZINE hydrALAZINE No 1{table hydrALAZIN HCl 100 MG HCl 100 MG t} E HCl 100 MG Albuterol Albuterol No Albuterol Sulfate HFA Sulfate HFA Sulfate 108 (90 108 (90 HFA 108 Base) Base) (90 Base) MCG/ACT MCG/ACT MCG/ACT Ezetimibe Ezetimibe No 1{table QD Ezetimibe 10 MG 10 MG t} 10 MG cloNIDine cloNIDine No QD cloNIDine HCl 0.3 MG HCl 0.3 MG HCl 0.3 MG Meclizine Meclizine No BID Meclizine HCl 25 mg HCl 25 mg HCl 25 mg Losartan Losartan No 1{table QD Losartan Potassium Potassium t} Potassium 100 MG 100 MG 100 MG Lotrisone Lotrisone No 1{appli BID Lotrisone 1-0.05 % 1-0.05 % cation_ 1-0.05 % to_affe cted_ar ea} amLODIPine amLODIPine No 1{table QD amLODIPine Besylate 10 Besylate 10 t} Besylate MG MG 10 MG Mobic 7.5 Mobic 7.5 No 1{table QD Mobic 7.5 MG MG t} MG Aspir-Low Aspir-Low No 1{table QD Aspir-Low 81 MG 81 MG t} 81 MG Metoprolol Metoprolol No Metoprolol Succinate Succinate Succinate ER 50 MG ER 50 MG ER 50 MG Ultram 50 Ultram 50 No 1{table QID Ultram 50 MG MG t_as_ne MG eded} Unifine Unifine No Unifine Pentips 32G Pentips 32G Pentips X 4 MM X 4 MM 32G X 4 MM Toujeo Toujeo No QD Toujeo SoloStar SoloStar SoloStar 300u/ml 300u/ml 300u/ml Permethrin Permethrin No 1{appli Permethrin 5 % 5 % cation_ 5 % to_affe cted_ar ea} Januvia 100 Januvia 100 No 1{table QD Januvia mg mg t} 100 mg Losartan Losartan No 1{table QD Losartan Potassium Potassium t} Potassium 100 MG 100 MG 100 MG Plavix 75 Plavix 75 No 1{table QD Plavix 75 MG MG t} MG Pravastatin Pravastatin No QD Pravastati Sodium 40 Sodium 40 n Sodium MG MG 40 MG NovoLOG NovoLOG No NovoLOG FlexPen 100 FlexPen 100 FlexPen UNIT/ML UNIT/ML 100 UNIT/ML Metoprolol Metoprolol No 1{table QD Metoprolol Succinate Succinate t} Succinate ER 50 MG ER 50 MG ER 50 MG Singulair Singulair No 1{table QD Singulair 10 MG 10 MG t} 10 MG Singulair Singulair No 1{table QD Singulair 10 MG 10 MG t} 10 MG amLODIPine amLODIPine No 1{table QD amLODIPine Besylate 10 Besylate 10 t} Besylate MG MG 10 MG Metoprolol Metoprolol No 1{table QD Metoprolol Succinate Succinate t} Succinate ER 50 MG ER 50 MG ER 50 MG Januvia 100 Januvia 100 No 1{table QD Januvia mg mg t} 100 mg Unifine Unifine No Unifine Pentips 32G Pentips 32G Pentips X 4 MM X 4 MM 32G X 4 MM Losartan Losartan No 1{table QD Losartan Potassium Potassium t} Potassium 100 MG 100 MG 100 MG cloNIDine cloNIDine No QD cloNIDine HCl 0.3 MG HCl 0.3 MG HCl 0.3 MG Metoprolol Metoprolol No Metoprolol Succinate Succinate Succinate ER 50 MG ER 50 MG ER 50 MG Permethrin Permethrin No 1{appli Permethrin 5 % 5 % cation_ 5 % to_affe cted_ar ea} Ultram 50 Ultram 50 No 1{table QID Ultram 50 MG MG t_as_ne MG eded} Lotrisone Lotrisone No 1{appli BID Lotrisone 1-0.05 % 1-0.05 % cation_ 1-0.05 % to_affe cted_ar ea} tiZANidine tiZANidine No tiZANidine HCl 2 MG HCl 2 MG HCl 2 MG Aspir-Low Aspir-Low No 1{table QD Aspir-Low 81 MG 81 MG t} 81 MG hydrALAZINE hydrALAZINE No 1{table hydrALAZIN HCl 100 MG HCl 100 MG t} E HCl 100 MG NovoLOG NovoLOG No NovoLOG FlexPen 100 FlexPen 100 FlexPen UNIT/ML UNIT/ML 100 UNIT/ML Mobic 7.5 Mobic 7.5 No 1{table QD Mobic 7.5 MG MG t} MG Losartan Losartan No 1{table QD Losartan Potassium Potassium t} Potassium 100 MG 100 MG 100 MG Plavix 75 Plavix 75 No 1{table QD Plavix 75 MG MG t} MG Pravastatin Pravastatin No QD Pravastati Sodium 40 Sodium 40 n Sodium MG MG 40 MG Ferrous Ferrous No 1{table QD Ferrous Sulfate 325 Sulfate 325 t} Sulfate (65 Fe) mg (65 Fe) mg 325 (65 Fe) mg Ezetimibe Ezetimibe No 1{table QD Ezetimibe 10 MG 10 MG t} 10 MG cloNIDine cloNIDine No QD cloNIDine HCl 0.3 MG HCl 0.3 MG HCl 0.3 MG Albuterol Albuterol No Albuterol Sulfate HFA Sulfate HFA Sulfate 108 (90 108 (90 HFA 108 Base) Base) (90 Base) MCG/ACT MCG/ACT MCG/ACT Meclizine Meclizine No BID Meclizine HCl 25 mg HCl 25 mg HCl 25 mg Tresiba Tresiba No Tresiba FlexTouch FlexTouch FlexTouch 200 UNIT/ML 200 UNIT/ML 200 UNIT/ML Toujeo Toujeo No QD Toujeo SoloStar SoloStar SoloStar 300u/ml 300u/ml 300u/ml Levemir Levemir No Levemir FlexTouch FlexTouch FlexTouch 100 UNIT/ML 100 UNIT/ML 100 UNIT/ML Singulair Singulair No 1{table QD Singulair 10 MG 10 MG t} 10 MG amLODIPine amLODIPine No 1{table QD amLODIPine Besylate 10 Besylate 10 t} Besylate MG MG 10 MG Metoprolol Metoprolol No 1{table QD Metoprolol Succinate Succinate t} Succinate ER 50 MG ER 50 MG ER 50 MG Januvia 100 Januvia 100 No 1{table QD Januvia mg mg t} 100 mg Unifine Unifine No Unifine Pentips 32G Pentips 32G Pentips X 4 MM X 4 MM 32G X 4 MM Losartan Losartan No 1{table QD Losartan Potassium Potassium t} Potassium 100 MG 100 MG 100 MG cloNIDine cloNIDine No QD cloNIDine HCl 0.3 MG HCl 0.3 MG HCl 0.3 MG Metoprolol Metoprolol No Metoprolol Succinate Succinate Succinate ER 50 MG ER 50 MG ER 50 MG Permethrin Permethrin No 1{appli Permethrin 5 % 5 % cation_ 5 % to_affe cted_ar ea} Ultram 50 Ultram 50 No 1{table QID Ultram 50 MG MG t_as_ne MG eded} Lotrisone Lotrisone No 1{appli BID Lotrisone 1-0.05 % 1-0.05 % cation_ 1-0.05 % to_affe cted_ar ea} tiZANidine tiZANidine No tiZANidine HCl 2 MG HCl 2 MG HCl 2 MG Aspir-Low Aspir-Low No 1{table QD Aspir-Low 81 MG 81 MG t} 81 MG hydrALAZINE hydrALAZINE No 1{table hydrALAZIN HCl 100 MG HCl 100 MG t} E HCl 100 MG NovoLOG NovoLOG No NovoLOG FlexPen 100 FlexPen 100 FlexPen UNIT/ML UNIT/ML 100 UNIT/ML Mobic 7.5 Mobic 7.5 No 1{table QD Mobic 7.5 MG MG t} MG Losartan Losartan No 1{table QD Losartan Potassium Potassium t} Potassium 100 MG 100 MG 100 MG Plavix 75 Plavix 75 No 1{table QD Plavix 75 MG MG t} MG Pravastatin Pravastatin No QD Pravastati Sodium 40 Sodium 40 n Sodium MG MG 40 MG Ferrous Ferrous No 1{table QD Ferrous Sulfate 325 Sulfate 325 t} Sulfate (65 Fe) mg (65 Fe) mg 325 (65 Fe) mg Ezetimibe Ezetimibe No 1{table QD Ezetimibe 10 MG 10 MG t} 10 MG cloNIDine cloNIDine No QD cloNIDine HCl 0.3 MG HCl 0.3 MG HCl 0.3 MG Albuterol Albuterol No Albuterol Sulfate HFA Sulfate HFA Sulfate 108 (90 108 (90 HFA 108 Base) Base) (90 Base) MCG/ACT MCG/ACT MCG/ACT Meclizine Meclizine No BID Meclizine HCl 25 mg HCl 25 mg HCl 25 mg Tresiba Tresiba No Tresiba FlexTouch FlexTouch FlexTouch 200 UNIT/ML 200 UNIT/ML 200 UNIT/ML Toujeo Toujeo No QD Toujeo SoloStar SoloStar SoloStar 300u/ml 300u/ml 300u/ml Levemir Levemir No Levemir FlexTouch FlexTouch FlexTouch 100 UNIT/ML 100 UNIT/ML 100 UNIT/ML Singulair Singulair No 1{table QD Singulair 10 MG 10 MG t} 10 MG amLODIPine amLODIPine No 1{table QD amLODIPine Besylate 10 Besylate 10 t} Besylate MG MG 10 MG Metoprolol Metoprolol No 1{table QD Metoprolol Succinate Succinate t} Succinate ER 50 MG ER 50 MG ER 50 MG Januvia 100 Januvia 100 No 1{table QD Januvia mg mg t} 100 mg Unifine Unifine No Unifine Pentips 32G Pentips 32G Pentips X 4 MM X 4 MM 32G X 4 MM Losartan Losartan No 1{table QD Losartan Potassium Potassium t} Potassium 100 MG 100 MG 100 MG cloNIDine cloNIDine No QD cloNIDine HCl 0.3 MG HCl 0.3 MG HCl 0.3 MG Metoprolol Metoprolol No Metoprolol Succinate Succinate Succinate ER 50 MG ER 50 MG ER 50 MG Permethrin Permethrin No 1{appli Permethrin 5 % 5 % cation_ 5 % to_affe cted_ar ea} Ultram 50 Ultram 50 No 1{table QID Ultram 50 MG MG t_as_ne MG eded} Lotrisone Lotrisone No 1{appli BID Lotrisone 1-0.05 % 1-0.05 % cation_ 1-0.05 % to_affe cted_ar ea} tiZANidine tiZANidine No tiZANidine HCl 2 MG HCl 2 MG HCl 2 MG Aspir-Low Aspir-Low No 1{table QD Aspir-Low 81 MG 81 MG t} 81 MG hydrALAZINE hydrALAZINE No 1{table hydrALAZIN HCl 100 MG HCl 100 MG t} E HCl 100 MG NovoLOG NovoLOG No NovoLOG FlexPen 100 FlexPen 100 FlexPen UNIT/ML UNIT/ML 100 UNIT/ML Mobic 7.5 Mobic 7.5 No 1{table QD Mobic 7.5 MG MG t} MG Losartan Losartan No 1{table QD Losartan Potassium Potassium t} Potassium 100 MG 100 MG 100 MG Plavix 75 Plavix 75 No 1{table QD Plavix 75 MG MG t} MG Pravastatin Pravastatin No QD Pravastati Sodium 40 Sodium 40 n Sodium MG MG 40 MG Ferrous Ferrous No 1{table QD Ferrous Sulfate 325 Sulfate 325 t} Sulfate (65 Fe) mg (65 Fe) mg 325 (65 Fe) mg Ezetimibe Ezetimibe No 1{table QD Ezetimibe 10 MG 10 MG t} 10 MG cloNIDine cloNIDine No QD cloNIDine HCl 0.3 MG HCl 0.3 MG HCl 0.3 MG Albuterol Albuterol No Albuterol Sulfate HFA Sulfate HFA Sulfate 108 (90 108 (90 HFA 108 Base) Base) (90 Base) MCG/ACT MCG/ACT MCG/ACT Meclizine Meclizine No BID Meclizine HCl 25 mg HCl 25 mg HCl 25 mg Tresiba Tresiba No Tresiba FlexTouch FlexTouch FlexTouch 200 UNIT/ML 200 UNIT/ML 200 UNIT/ML Toujeo Toujeo No QD Toujeo SoloStar SoloStar SoloStar 300u/ml 300u/ml 300u/ml Levemir Levemir No Levemir FlexTouch FlexTouch FlexTouch 100 UNIT/ML 100 UNIT/ML 100 UNIT/ML cloNIDine cloNIDine No QD cloNIDine HCl 0.3 MG HCl 0.3 MG HCl 0.3 MG amLODIPine amLODIPine No 1{table QD amLODIPine Besylate 10 Besylate 10 t} Besylate MG MG 10 MG Singulair Singulair No 1{table QD Singulair 10 MG 10 MG t} 10 MG Januvia 100 Januvia 100 No 1{table QD Januvia mg mg t} 100 mg Permethrin Permethrin No 1{appli Permethrin 5 % 5 % cation_ 5 % to_affe cted_ar ea} Losartan Losartan No 1{table QD Losartan Potassium Potassium t} Potassium 100 MG 100 MG 100 MG Unifine Unifine No Unifine Pentips 32G Pentips 32G Pentips X 4 MM X 4 MM 32G X 4 MM Metoprolol Metoprolol No Metoprolol Succinate Succinate Succinate ER 50 MG ER 50 MG ER 50 MG Plavix 75 Plavix 75 No 1{table QD Plavix 75 MG MG t} MG Ultram 50 Ultram 50 No 1{table QID Ultram 50 MG MG t_as_ne MG eded} Losartan Losartan No 1{table QD Losartan Potassium Potassium t} Potassium 100 MG 100 MG 100 MG Lotrisone Lotrisone No 1{appli BID Lotrisone 1-0.05 % 1-0.05 % cation_ 1-0.05 % to_affe cted_ar ea} Aspir-Low Aspir-Low No 1{table QD Aspir-Low 81 MG 81 MG t} 81 MG Ezetimibe Ezetimibe No 1{table QD Ezetimibe 10 MG 10 MG t} 10 MG FeroSul 325 FeroSul 325 No FeroSul (65 Fe) MG (65 Fe) MG 325 (65 Fe) MG cloNIDine cloNIDine No QD cloNIDine HCl 0.3 MG HCl 0.3 MG HCl 0.3 MG hydrALAZINE hydrALAZINE No 1{table hydrALAZIN HCl 100 MG HCl 100 MG t} E HCl 100 MG NovoLOG NovoLOG No NovoLOG FlexPen 100 FlexPen 100 FlexPen UNIT/ML UNIT/ML 100 UNIT/ML Pravastatin Pravastatin No QD Pravastati Sodium 40 Sodium 40 n Sodium MG MG 40 MG Mobic 7.5 Mobic 7.5 No 1{table QD Mobic 7.5 MG MG t} MG Metoprolol Metoprolol No 1{table QD Metoprolol Succinate Succinate t} Succinate ER 50 MG ER 50 MG ER 50 MG tiZANidine tiZANidine No tiZANidine HCl 2 MG HCl 2 MG HCl 2 MG Albuterol Albuterol No Albuterol Sulfate HFA Sulfate HFA Sulfate 108 (90 108 (90 HFA 108 Base) Base) (90 Base) MCG/ACT MCG/ACT MCG/ACT Meclizine Meclizine No BID Meclizine HCl 25 mg HCl 25 mg HCl 25 mg Tresiba Tresiba No Tresiba FlexTouch FlexTouch FlexTouch 200 UNIT/ML 200 UNIT/ML 200 UNIT/ML Toujeo Toujeo No QD Toujeo SoloStar SoloStar SoloStar 300u/ml 300u/ml 300u/ml Levemir Levemir No Levemir FlexTouch FlexTouch FlexTouch 100 UNIT/ML 100 UNIT/ML 100 UNIT/ML Metoprolol Metoprolol No 1{table QD Metoprolol Succinate Succinate t} Succinate ER 50 MG ER 50 MG ER 50 MG Januvia 100 Januvia 100 No 1{table QD Januvia mg mg t} 100 mg cloNIDine cloNIDine No cloNIDine HCl 0.3 MG HCl 0.3 MG HCl 0.3 MG Permethrin Permethrin 2021- No 1{appli Permethrin 5 % 5 % 03- cation_ 5 % 00:00 to_affe :00 cted_ar ea} Methocarbam Methocarbam 2019- Radha 1 tablet [facility] 07-05 [facility] as needed Spir it 00:00 for muscle - [facility] :00 cramps/arabella [facility] Immunizations Ordered Filled Immunization Date Status Comments [facility] e Immunization Name Name MACI COVID-19 2020-11-17 Completed [facility]:00[facility]00 [facility] Influenza Virus 2020-07-05 Completed [facility] Vaccine [facility]:00[facility]00 [facility] Zoster Vaccine 2020-07-05 Completed [facility] Recombinant 00:00:00 [facility] Shingrix Shingrix 2020-06-21 Completed [facility] - [facility]:00 [facility] Flucelvax - single Flucelvax - single 2020-06-21 Completed [facility] - dose syringe dose syringe 16:46:00 [facility] Shingrix Shingrix 2020-06-21 Completed [facility] - 16:46:00 [facility] Flucelvax - single Flucelvax - single 2020-06-21 Completed [facility] - dose syringe dose syringe 16:46:00 [facility] Shingrix Shingrix 2020-06-21 Completed [facility] - 16:46:00 [facility] Flucelvax - single Flucelvax - single 2020-06-21 Completed [facility] - dose syringe dose syringe 16:46:00 [facility] Shingrix Shingrix 2020-06-21 Completed [facility] 16:46:00 [facility] Flucelvax - single Flucelvax - single 2020-06-21 Completed [facility] - dose syringe dose syringe 16:46:00 [facility] Shingrix Shingrix 2020-06-21 Completed [facility] 16:46:00 [facility] Flucelvax - single Flucelvax - single 2020-06-21 Completed [facility] - dose syringe dose syringe 16:46:00 [facility] Shingrix Shingrix 2020-06-21 Completed [facility] 16:46:00 [facility] Flucelvax - single Flucelvax - single 2020-06-21 Completed [facility] - dose syringe dose syringe 16:46:00 [facility] Shingrix Shingrix 2020-06-21 Completed [facility] - 16:46:00 [facility] Flucelvax - single Flucelvax - single 2020-06-21 Completed [facility] - dose syringe dose syringe 16:46:00 [facility] Shingrix Shingrix 2020-06-21 Completed [facility] 16:46:00 [facility] Flucelvax - single Flucelvax - single 2020-06-21 Completed [facility] - dose syringe dose syringe 16:46:00 [facility] Shingrix Shingrix 2020-06-21 Completed [facility] 16:46:00 [facility] Flucelvax - single Flucelvax - single 2020-06-21 Completed [facility] - dose syringe dose syringe 16:46:00 [facility] Shingrix Shingrix 2020-06-21 Completed [facility] 16:46:00 [facility] Flucelvax - single Flucelvax - single 2020-06-21 Completed [facility] - dose syringe dose syringe 16:46:00 [facility] Shingrix Shingrix 2020-06-21 Completed [facility] - 16:46:00 [facility] Flucelvax - single Flucelvax - single 2020-06-21 Completed [facility] - dose syringe dose syringe 16:46:00 [facility] Shingrix Shingrix 2020-06-21 Completed [facility] 16:46:00 [facility] Flucelvax - single Flucelvax - single 2020-06-21 Completed [facility] - dose syringe dose syringe 16:46:00 [facility] Shingrix Shingrix 2020-06-21 Completed [facility] 16:46:00 [facility] Flucelvax - single Flucelvax - single 2020-06-21 Completed [facility] - dose syringe dose syringe 16:46:00 [facility] Shingrix Shingrix 2020-06-21 Completed [facility] 16:46:00 [facility] Flucelvax - single Flucelvax - single 2020-06-21 Completed [facility] - dose syringe dose syringe 16:46:00 [facility] Shingrix Shingrix 2020-06-21 Completed [facility] 16:46:00 [facility] Flucelvax - single Flucelvax - single 2020-06-21 Completed [facility] - dose syringe dose syringe 16:46:00 [facility] Shingrix Shingrix 2020-06-21 Completed [facility] - 16:46:00 [facility] Flucelvax - single Flucelvax - single 2020-06-21 Completed [facility] - dose syringe dose syringe 16:46:00 [facility] Shingrix Shingrix 2020-06-21 Completed [facility] 16:46:00 [facility] Flucelvax - single Flucelvax - single 2020-06-21 Completed [facility] - dose syringe dose syringe 16:46:00 [facility] Shingrix Shingrix 2020-06-21 Completed [facility] - 16:46:00 [facility] Flucelvax - single Flucelvax - single 2020-06-21 Completed [facility] - dose syringe dose syringe 16:46:00 [facility] Shingrix Shingrix 2020-06-21 Completed [facility] - 16:46:00 [facility] Flucelvax - single Flucelvax - single 2020-06-21 Completed [facility] - dose syringe dose syringe 16:46:00 [facility] Shingrix Shingrix 2020-06-21 Completed [facility] 16:46:00 [facility] Flucelvax - single Flucelvax - single 2020-06-21 Completed [facility] - dose syringe dose syringe 16:46:00 [facility] Shingrix Shingrix 2020-06-21 Completed [facility] - 16:46:00 [facility] Flucelvax - single Flucelvax - single 2020-06-21 Completed [facility] - dose syringe dose syringe 16:46:00 [facility] Shingrix Shingrix 2020-06-21 Completed [facility] - 16:46:00 [facility] Flucelvax - single Flucelvax - single 2020-06-21 Completed [facility] - dose syringe dose syringe 16:46:00 [facility] Shingrix Shingrix 2020-06-21 Completed [facility] - 16:46:00 [facility] Flucelvax - single Flucelvax - single 2020-06-21 Completed [facility] - dose syringe dose syringe 16:46:00 [facility] Shingrix Shingrix 2020-06-21 Completed [facility] - 16:46:00 [facility] Flucelvax - single Flucelvax - single 2020-06-21 Completed [facility] - dose syringe dose syringe 16:46:00 [facility] Shingrix Shingrix 2020-06-21 Completed [facility] - 16:46:00 [facility] Flucelvax - single Flucelvax - single 2020-06-21 Completed [facility] - dose syringe dose syringe 16:46:00 [facility] Shingrix Shingrix 2020-06-21 Completed [facility] - 16:46:00 [facility] Flucelvax - single Flucelvax - single 2020-06-21 Completed [facility] - dose syringe dose syringe 16:46:00 [facility] Shingrix Shingrix 2020-06-21 Completed [facility] - 16:46:00 [facility] Flucelvax - single Flucelvax - single 2020-06-21 Completed [facility] - dose syringe dose syringe 16:46:00 [facility] Flucelvax - Flucelvax - 2018-05-23 Completed [facility] - multidose vial multidose vial 11:15:00 [facility] Flucelvax - Flucelvax - 2018-05-23 Completed [facility] - multidose vial multidose vial 11:15:00 [facility] Flucelvax - Flucelvax - 2018-05-23 Completed [facility] - multidose vial multidose vial 11:15:00 [facility] Flucelvax - Flucelvax - 2018-05-23 Completed [facility] - multidose vial multidose vial 11:15:00 [facility] Flucelvax - Flucelvax - 2018-05-23 Completed [facility] - multidose vial multidose vial 11:15:00 [facility] Flucelvax - Flucelvax - 2018-05-23 Completed [facility] - multidose vial multidose vial 11:15:00 [facility] Flucelvax - Flucelvax - 2018-05-23 Completed [facility] - multidose vial multidose vial 11:15:00 [facility] Flucelvax - Flucelvax - 2018-05-23 Completed [facility] - multidose vial multidose vial 11:15:00 [facility] Flucelvax - Flucelvax - 2018-05-23 Completed [facility] - multidose vial multidose vial 11:15:00 [facility] Flucelvax - Flucelvax - 2018-05-23 Completed [facility] - multidose vial multidose vial 11:15:00 [facility] Flucelvax - Flucelvax - 2018-05-23 Completed [facility] - multidose vial multidose vial 11:15:00 [facility] Flucelvax - Flucelvax - 2018-05-23 Completed [facility] - multidose vial multidose vial 11:15:00 [facility] Flucelvax - Flucelvax - 2018-05-23 Completed [facility] - multidose vial multidose vial 11:15:00 [facility] Flucelvax - Flucelvax - 2018-05-23 Completed [facility] - multidose vial multidose vial 11:15:00 [facility] Flucelvax - Flucelvax - 2018-05-23 Completed [facility] - multidose vial multidose vial 11:15:00 [facility] Flucelvax - Flucelvax - 2018-05-23 Completed [facility] - multidose vial multidose vial 11:15:00 [facility] Flucelvax - Flucelvax - 2018-05-23 Completed [facility] - multidose vial multidose vial 11:15:00 [facility] Flucelvax - Flucelvax - 2018-05-23 Completed [facility] - multidose vial multidose vial 11:15:00 [facility] Flucelvax - Flucelvax - 2018-05-23 Completed [facility] - multidose vial multidose vial 11:15:00 [facility] Flucelvax - Flucelvax - 2018-05-23 Completed [facility] - multidose vial multidose vial 11:15:00 [facility] Flucelvax - Flucelvax - 2018-05-23 Completed [facility] - multidose vial multidose vial 11:15:00 [facility] Flucelvax - Flucelvax - 2018-05-23 Completed [facility] - multidose vial multidose vial 11:15:00 [facility] Flucelvax - Flucelvax - 2018-05-23 Completed [facility] - multidose vial multidose vial 11:15:00 [facility] Flucelvax - Flucelvax - 2018-05-23 Completed [facility] - multidose vial multidose vial 11:15:00 [facility] Flucelvax - Flucelvax - 2018-05-23 Completed [facility] - multidose vial multidose vial 11:15:00 [facility] Flucelvax - Flucelvax - 2018-05-23 Completed [facility] - multidose vial multidose vial 11:15:00 [facility] Flucelvax - Flucelvax - 2018-05-23 Completed [facility] - multidose vial multidose vial 11:15:00 [facility] Flucelvax - Flucelvax - 2018-05-23 Completed [facility] - multidose vial multidose vial 00:00:00 [facility] Vital Signs Vital Name Observation Time Observation Value Comments Source height 2022-05-21 10:00:00 69.00 [in_i] [facility] weight 2022-05-21 10:00:00 237.6 [lb_av] [facility] temperature 2022-05-21 10:00:00 97.4 [degF] [facility] bmi 2022-05-21 10:00:00 35.08 kg/m2 [facility] oximetry 2022-05-21 10:00:00 96 % [facility] respiratory rate 2022-05-21 10:00:00 18 /min Comm on [facility] blood pressure 2022-05-21 10:00:00 120 mm[Hg] [facility] - systolic [facility] blood pressure 2022-05-21 10:00:00 82 mm[Hg] [facility] - diastolic [facility] height 2022-04-19 11:20:00 69.00 [in_i] [facility] weight 2022-04-19 11:20:00 237.0 [lb_av] [facility] temperature 2022-04-19 11:20:00 97.5 [degF] [facility] bmi 2022-04-19 11:20:00 34.99 kg/m2 [facility] oximetry 2022-04-19 11:20:00 98 % [facility] respiratory rate 2022-04-19 11:20:00 18 /min Comm on [facility] blood pressure 2022-04-19 11:20:00 180 mm[Hg] [facility] systolic [facility] blood pressure 2022-04-19 11:20:00 90 mm[Hg] [facility] - diastolic [facility] height 2022-04-19 11:20:00 69.00 [in_i] [facility] weight 2022-04-19 11:20:00 237.0 [lb_av] [facility] temperature 2022-04-19 11:20:00 97.5 [degF] [facility] bmi 2022-04-19 11:20:00 34.99 kg/m2 [facility] oximetry 2022-04-19 11:20:00 98 % [facility] respiratory rate 2022-04-19 11:20:00 18 /min Comm on [facility] blood pressure 2022-04-19 11:20:00 180 mm[Hg] [facility] systolic [facility] blood pressure 2022-04-19 11:20:00 90 mm[Hg] [facility] diastolic [facility] Systolic blood 2022-02-13 22:21:00 163 mm[Hg] [facility] Diastolic blood 2022-02-13 22:21:00 76 mm[Hg] Unive [facility] of pressure [facility] Heart rate 2022-02-13 22:21:00 61 /min [facility] Body weight 2022-02-13 22:21:00 112.492 kg [facility] BMI 2022-02-13 22:21:00 38.84 kg/m2 [facility] height 2022-01-31 09:30:00 69.00 [in_i] [facility] weight 2022-01-31 09:30:00 256.6 [lb_av] [facility] temperature 2022-01-31 09:30:00 97.2 [degF] [facility] bmi 2022-01-31 09:30:00 37.89 kg/m2 [facility] blood pressure 2022-01-31 09:30:00 148 mm[Hg] [facility] - systolic [facility] blood pressure 2022-01-31 09:30:00 86 mm[Hg] [facility] - diastolic [facility] height 2022-01-16 13:30:00 69.00 [in_i] [facility] weight 2022-01-16 13:30:00 250 [lb_av] [facility] bmi 2022-01-16 13:30:00 36.91 kg/m2 [facility] blood pressure 2022-01-16 13:30:00 148 mm[Hg] [facility] - systolic [facility] blood pressure 2022-01-16 13:30:00 90 mm[Hg] [facility] - diastolic [facility] height 2021-12-07 15:00:00 69.00 [in_i] [facility] weight 2021-12-07 15:00:00 250 [lb_av] [facility] bmi 2021-12-07 15:00:00 36.91 kg/m2 [facility] blood pressure 2021-12-07 15:00:00 158 mm[Hg] [facility] - systolic [facility] blood pressure 2021-12-07 15:00:00 90 mm[Hg] [facility] - diastolic [facility] height 2021-11-01 14:30:00 69.00 [in_i] [facility] weight 2021-11-01 14:30:00 250 [lb_av] [facility] bmi 2021-11-01 14:30:00 36.91 kg/m2 [facility] blood pressure 2021-11-01 14:30:00 162 mm[Hg] [facility] - systolic [facility] blood pressure 2021-11-01 14:30:00 90 mm[Hg] [facility] - diastolic [facility] height 2021-10-03 13:00:00 69.00 [in_i] [facility] weight 2021-10-03 13:00:00 249.6 [lb_av] [facility] temperature 2021-10-03 13:00:00 98.0 [degF] [facility] [facility] bmi 2021-10-03 13:00:00 36.86 kg/m2 Common S pirit [facility] oximetry 2021-10-03 13:00:00 95 % Common S pirit [facility] respiratory rate 2021-10-03 13:00:00 16 /min Comm on Spirit [facility] blood pressure 2021-10-03 13:00:00 136 mm[Hg] Common [facility] - systolic [facility] blood pressure 2021-10-03 13:00:00 80 mm[Hg] Common [facility] - diastolic [facility] height 2021-07-27 11:00:00 69.00 [in_i] Common S pirit [facility] weight 2021-07-27 11:00:00 250 [lb_av] Common S pirit [facility] temperature 2021-07-27 11:00:00 98.4 [degF] Common S pirit [facility] bmi 2021-07-27 11:00:00 36.91 kg/m2 Common S [facility] oximetry 2021-07-27 11:00:00 96 % Common S pirit [facility] respiratory rate 2021-07-27 11:00:00 18 /min Comm on [facility] blood pressure 2021-07-27 11:00:00 190 mm[Hg] Common [facility] - systolic [facility] blood pressure 2021-07-27 11:00:00 86 mm[Hg] Common [facility] - diastolic [facility] Procedures Procedure Date / Time Performed Performing Clinician Nhi e POCT HEMOGLOBIN A1C 2022-02-13 20:57:00 Janet Jovel [facility] Plan of Care Planned Activity Planned Date Details Comments Source Future Scheduled 2022-06-20 HEPATITIS B VACCINES Met [facility] Test 10:09:17 (1 of 3 - 3-dose series) [code = HEPATITIS B VACCINES (1 of 3 - 3-dose series)] Future Scheduled 2022-06-20 65+ [facility] VACCINE (1 - PCV) [code = 65+ PNEUMOCOCCAL VACCINE (1 - PCV)] Future Scheduled 2022-06-20 Hepatitis C screening [facility] Test 10:09:17 (procedure) [code = 731087483] Future Scheduled 2022-06-20 COLONOSCOPY SCREENING [facility] Test 10:09:17 [code = COLONOSCOPY SCREENING] Future Scheduled 2022-06-20 SHINGLES VACCINES (2 Met [facility] Test 10:09:17 of 2) [code = SHINGLES VACCINES (2 of 2)] Future Scheduled 2022-06-20 COVID-19 VACCINE (2 - [facility] Test 10:09:17 Booster for Maci series) [code = COVID-19 VACCINE (2 - Booster for Maci series)] Future Scheduled 2022-06-20 INFLUENZA VACCINE Method [facility] Test 10:09:17 [code = INFLUENZA VACCINE] Encounters Start End Encounter Admission Attending Care Care Encounter Source Date/Time Date/Time Type Type Clinicians Facility Department ID 2022-05-21 [facility] [id number] 2 Common 09:58:00 [id number] [facility] 2022-05-16 [facility] [id number] 2 Common 10:45:00 [facility] 2022-04-19 Outpatient Venegas, Na [facility] [id number] 2 Common 12:06:00 [facility] 2022-01-31 Outpatient Venegas, Na STLMLC STLMLC [id number] 2 Common 09:24:00 [facility] 2022-01-19 Outpatient Venegas, Na STLMLC STLMLC [id number] 2 Common 09:26:00 [facility] 2022-01-03 Outpatient Venegas, Na STLMLC STLMLC [id number] 2 Common 14:11:00 [facility] 2021 Outpatient Venegas, Na STLMLC STLMLC [id number] 2 Common 08:59:05 [facility] 2021-12-08 Outpatient Venegas, Na STLMLC STLMLC [id number] 2 Common 10:14:00 [facility] 2021-12-07 Outpatient Venegas, Na STLMLC STLMLC [id number] 2 Common 14:50:00 [facility] 2021-11-09 Outpatient Venegas, Na STLMLC STLMLC [id number] 2 Common 13:53:00 [facility] 2021-10-26 Outpatient Venegas, Na STLMLC STLMLC [id number] 2 Common 11:08:01 [facility] 2021-10-25 Outpatient Venegas, Na STLMLC STLMLC [id number] 2 Common 13:29:00 [facility] 2021-10-24 Outpatient Venegas, Na STLMLC STLMLC [id number] 2 Common 09:15:01 [facility] 2021-10-19 Outpatient Venegas, Na STLMLC STLMLC [id number] 2 Common 10:06:01 [facility] 2021-09-06 Outpatient Venegas, Na STLMLC STLMLC [id number] 2 Common 14:37:52 [facility] 2021-09-06 Outpatient Venegas, Na STLMLC STLMLC [id number] 2 Common 13:57:02 [id number] [facility] 2021-09-06 Outpatient Venegas, Na STLMLC STLMLC [id number] 2 Common 13:49:11 [id number] [facility] 2021-09-06 Outpatient Venegas, Na STLMLC STLMLC [id number] 2 Common 13:43:12 [id number] [facility] 2021-09-06 Outpatient Venegas, Na STLMLC STLMLC [id number] 2 Common 13:36:33 [id number] [facility] 2021-09-06 Outpatient Per, STLMLC STLMLC [id number] Common 13:36:00 Debra [id number] [facility] 2021-09-06 Outpatient Per, STLMLC STLMLC [id number] Common 13:35:24 Debra [id number] [facility] 2021-09-06 Outpatient Per, STLMLC STLMLC [id number] Common 13:18:13 Debra [id number] [facility] 2021-09-06 Outpatient Per, STLMLC STLMLC [id number] Common 12:49:59 Debra [id number] [facility] 2021-09-06 Outpatient Per, STLMLC STLMLC [id number] Common 12:48:55 Debra [id number] [facility] 2021-09-06 Outpatient Per, STLMLC STLMLC [id number] Common 12:23:33 Debra [id number] [facility] 2021-09-06 Outpatient Per, STLMLC STLMLC [id number] Common 12:22:39 Debra [id number] [facility] 2021-09-06 Outpatient Per, STLMLC STLMLC [id number] Common 12:14:12 Debra [id number] [facility] 2021-09-06 Outpatient Per, STLMLC STLMLC [id number] Common 12:13:33 Debra [id number] [facility] 2021-09-06 Outpatient Per, STLMLC STLMLC [id number] Common 12:11:55 Debra [id number] [facility] 2021-09-06 Outpatient Per, STLMLC STLMLC [id number] Common 12:08:21 Debra [id number] [facility] 2021-09-06 Outpatient Per, STLMLC STLMLC [id number] Common 12:07:21 Debra [id number] [facility] 2021-09-06 Outpatient Per, STLMLC STLMLC [id number] Common 12:03:50 Debra [id number] [facility] 2021-09-06 Outpatient Per, STLMLC STLMLC [id number] Common 12:02:55 Debra [id number] [facility] 2021-09-06 Outpatient Per, STLMLC STLMLC [id number] Common 12:01:14 Debra [id number] [facility] 2021-09-06 Outpatient STLMLC STLMLC [id number] Common 12:00:30 [id number] [facility] 2021-09-06 Outpatient Millender, STLMLC STLMLC [id number] Common 11:16:38 Radha [id number] [facility] 2021-09-06 Outpatient Millender, STLMLC STLMLC [id number] Common 11:07:19 Radha 13843 [facility] 2021-09-06 Outpatient Millender, STLMLC STLMLC [id number] Common 10:58:12 Radha [id number] [facility] 2022-08-21 2022-08-21 Outpatient Torri JOVEL [facility] [id number] Univers 14:30:00 14:30:[address] [facility] 2022-05-21 2022-05-21 OFFICE STLMLC STLMLC [id number] Co mmon 00:00:00 00:00:00 VISIT EST Spir it PT LEVEL 3 [facility] 2022-05-15 2022-05-15 Outpatient SFA SFA [id number] Wes 10:31:54 10:31:54 [id number] F Faraz 2022-04-19 2022-04-19 (TEL) STLMLC STLMLC [id number] Co mmon 00:00:00 00:00:00 Spirit - CH[facility] 2022-04-19 2022-04-19 SUB ANNUAL STLMLC STLMLC [id number] Common 00:00:00 00:00:00 MCR Spirit WELLNESS - CHI VISIT [facility] 2022-04-19 2022-04-19 OFFICE STLMLC STLMLC [id number] Co mmon 00:00:00 00:00:00 VISIT [facility] ESTAB PT - CHI LEVEL 4 [facility] 2022-03-21 2022-03-21 (TEL) STLMLC STLMLC [id number] Co mmon 00:00:00 00:00:00 [facility] 2022-02-13 2022-02-13 Outpatient R [facility] [id number] Univers 16:00:00 16:31:29 [facility] 2022-02-13 2022-02-13 [facility] 1.2.840.114 [id number] Univers 16:00:00 16:31:29 Visit [facility] 350.1.13.10 y [facility] 4.2.7.2.686 Aiden as JOHN?BLEA [phone] [address] MEDICAL OFFICE BUILDING 2022-02-13 2022-02-13 Outpatient Torri JOVEL [facility] [id number] Univers 16:00:00 16:00:00 [facility] 2022-01-31 2022-01-31 NON-BILLAB STLMLC STLMLC [id number] Common 00:00:00 00:00:00 LE VISIT [facility] t [facility] 2022-01-16 2022-01-16 NON-BILLAB STLMLC STLMLC [id number] Common 00:00:00 00:00:00 LE VISIT [facility] t [facility] 2022-01-10 2022-01-10 OL DIG E/M STLMLC STLMLC [id number] Common 00:00:00 00:00:00 C 11-20 Spir it MIN - [facility] 2022-01-03 2022-01-03 (TEL) STLMLC STLMLC [id number] Co mmon 00:00:00 00:00:00 [facility] 2022-01-02 2022-01-02 (TEL) STLMLC STLMLC [id number] Co mmon 00:00:00 00:00:00 [facility] 2021-12-29 2021-12-29 (TEL) STLMLC STLMLC [id number] Co mmon 00:00:00 00:00:00 [facility] 2021-12-29 2021-12-29 pAril Jovel [facility] 1.2.840.114 [id number] Univers 00:00:00 00:00:00 [facility] 350.1.13.10 it y of [place] 4.2.7.2.686 Aiden as JOHN?BLEA [phone] [address] MEDICAL OFFICE BUILDING 2021 2021 (TEL) STLMLC STLMLC [id number] Co mmon 00:00:00 00:00:00 [facility] 2021-12-15 2021-12-15 (TEL) STLMLC STLMLC [id number] Co mmon 00:00:00 00:00:00 [facility] 2021-12-12 2021-12-12 (TEL) STLMLC STLMLC [id number] Co mmon 00:00:00 00:00:00 [facility] 2021-12-07 2021-12-07 OFFICE STLMLC STLMLC [id number] Co mmon 00:00:00 00:00:00 VISIT EST Spir it PT LEVEL 3 [facility] 2021-12-05 2021-12-05 (TEL) STLMLC STLMLC [id number] Co mmon 00:00:00 00:00:00 [facility] 2021-11-29 2021-11-29 (TEL) STLMLC STLMLC [id number] Co mmon 00:00:00 00:00:00 [facility] 2021-11-28 2021-11-28 (TEL) STLMLC STLMLC [id number] Co mmon 00:00:00 00:00:00 [facility] 2021-11-07 2021-11-07 (TEL) STLMLC STLMLC [id number] Co mmon 00:00:00 00:00:00 [facility] 2021-11-07 2021-11-07 (TEL) STLMLC STLMLC [id number] Co mmon 00:00:00 00:00:00 [facility] 2021-11-07 2021-11-07 (TEL) STLMLC STLMLC [id number] Co mmon 00:00:00 00:00:00 [facility] 2021-11-01 2021-11-01 OFFICE STLMLC STLMLC [id number] Co mmon 00:00:00 00:00:00 VISIT NEW Spir it PT LEVEL 3 [facility] 2021-10-10 2021-10-10 Orders Doctor KEITH 1.2.840.114 [id number] Univers 00:00:00 00:00:00 Only Unassigned, ENMA 350.1.13.10 ity of [place] [facility] 4.2.7.2.686 Aiden as [phone] [place] [address] [address] 2021-10-03 2021-10-03 OFFICE STLMLC STLMLC [id number] Co mmon 00:00:00 00:00:00 VISIT EST Spir it PT LEVEL 3 [facility] 2021-09-29 2021-09-29 (TEL) STLMLC STLMLC [id number] Co mmon 00:00:00 00:00:00 [facility] 2021-09-12 2021-09-12 Outpatient Torri JOVEL [facility] [id number] Univers 16:00:00 16:50:[address] [facility] 2021-09-12 2021-09-12 Outpatient Torri JOVEL [facility] [id number] Univers 16:00:00 16:50:29 JANET ity of [facility] 2021-09-12 2021-09-12 Office Med [facility] 1.2.840.114 [id number] Univers 16:00:00 16:50:29 Visit [facility] 350.1.13.10 it y of [place] 4.2.7.2.686 Aiden as JOHN?BLEA [phone] [address] OFFICE [facility] 2021-09-12 2021-09-12 Orders Doctor KEITH 1.2.840.114 [id number] Univers 00:00:00 00:00:00 Only Unassigned, ENMA 350.1.13.10 ity of [place] [facility] 4.2.7.2.686 Aiden as [phone] [address] 2021-08-25 2021-08-25 OFFICE STLC STLC [id number] Co mmon 00:00:00 00:00:00 VISIT EST Spir it PT LEVEL 3 [facility] 2021-08-10 2021-08-10 [facility] 1.2.840.114 [id number] Univers 00:00:00 00:00:00 [facility] 350.1.13.10 i [place] [phone] [address] 2021-08-08 2021-08-08 Outpatient R MED [facility] [id number] Univers 14:00:00 14:00:00 [facility] ity [facility] 2021-07-27 2021-07-27 OFFICE [facility] [id number] Co mmon 00:00:00 00:00:00 VISIT EST Spir it PT LEVEL 3 - [facility] 2021-07-14 2021-07-14 Orders Doctor KEITH 1.2.840.114 [id number] Univers 00:00:00 00:00:00 Only Unassigned, ENMA 350.1.13.10 ity of [place] [facility] 4.2.7.2.686 Aiden as [phone] [address] 2021-07-13 2021-07-13 [facility]phone [facility] 1.2.168.245 [id number] Univers 00:00:00 00:00:00 [place] 350.1.13.10 i ty of [place] [phone] [address] 2021-05-17 2021-05-17 [facility] 1.2.840.114 [id number] Univers 00:00:00 00:00:00 Wentong MULTISPEC 350.1.13.10 [place] [phone] [address] [facility] 2021-05-12 2021-05-12 Refill [facility] 1.2.840.114 [id number] Univers 00:00:00 00:00:00 Wentong MULTISPEC 350.1.13.10 [place] [phone] [address] [facility] 2021-03-21 2021-03-21 Outpatient STLMLC STLMLC [id number] Common 00:00:00 00:00:00 [facility] 2021-03-15 2021-03-15 Refill [facility] 1.2.840.114 [id number] Univers 00:00:00 00:00:00 Wentong Foss 350.1.13.10 i ty of [place] [phone] [address] 2021-02-16 2021-02-16 [facility] 1.2.170.633 [id number] Univers 00:00:00 00:00:00 Wentong Foss 350.1.13.10 i ty of [place] [phone] [address] 2021-02-13 2021-02-13 [facility] 1.2.840.114 [id number] Univers 00:00:00 00:00:00 Wentong Foss 350.1.13.10 i ty of [place]2.[place] [phone] [place] dic[address] 2021-02-13 2021-02-13 [facility] 1.2.840.114 [id number] Univers 00:00:00 00:00:00 Janet Foss 350.1.13.10 i ty of [place]2.[place] [phone] [address] 2021-02-12 2021-02-12 Orders Doctor KEITH 1.2.840.114 [id number] Univers 00:00:00 00:00:00 Only Unassigned, ENMA 350.1.13.10 [facility] 4.2.7.2.686 Aiden as [phone] [address] 2021-02-01 2021-02-01 [facility] 1.2.840.114 [id number] [facility] 13:39:29 14:33:26 Visit Janet [place]ton 350.1.13.10 i ty of [place]2.[place] [phone] [address] 2021-02-01 2021-02-01 Outpatient R MED [facility] [id number] [facility] 13:30:00 13:30:[address] [facility] 2021-01-30 2021-01-30 Outpatient [facility] [id number] 7[address] [place] 00:00:00 00:00:00 VANCE 610 Method i 2021-01-27 2021-01-27 Outpatient [facility] [id number] [address] [place] 00:00:00 00:00:00 VANCE 490 Method i 2021-01-16 2021-01-16 [facility] 1.2.840.114 [id number] [facility] 00:00:00 00:00:00 Janet Foss 350.1.13.10 i ty of [place] [phone] [address] 2021-01-14 2021-01-14 Refill Med [facility] 1.2.840.114 [id number] Univers 00:00:00 00:00:00 Wentong Foss 350.1.13.10 i ty of [place]2.[place] [phone] [place] dical [address] 2021-01-13 2021-01-13 Outpatient STLMLC STLMLC [id number] Common 00:00:00 00:00:00 [facility] 2021-01-05 2021-01-06 Emergency [place] [id number] [place] [address] 00:00:00 00:00:[address] IGOR [address] 2020-12-09 2020-12-09 Outpatient STLMLC STLMLC [id number] Common 00:00:00 00:00:00 [facility] 2020-12-05 2020-12-05 [facility] 1.2.840.114 [id number] Univers 00:00:00 00:00:00 Ducong Foss 350.1.13.10 i ty of [place] [phone] [place] dic[address] 2020-12-01 2020-12-01 Outpatient STLMLC STLC [id number] Common 00:00:00 00:00:00 [facility] 2020-11-28 2020-11-28 [facility] 1.2.840.114 [id number] Univers 00:00:00 00:00:00 Ducong MULTISPEC 350.1.13.10 [place] of [place]2.[place] [phone] [facility] AND RESENDIZ [address] [facility] 2020-11-21 2020-11-21 Telephone Med [facility] 1.2.984.939 [id number] Univers 00:00:00 00:00:00 Wentong Foss 350.1.13.10 i ty of [place].7.2.[place] [phone] [place] dical [place]al [address] [place] [address] 2020-11-032020-11-03 [facility] 1.2.890.104 [id number] Univers 00:00:00 00:00:00 Wentong MULTISPEC 350.1.13.10 [place] of [place]2.[place] [phone] [facility] AND MORVEN [address] [facility] 2020-10-31 2020-10-31 Orders Doctor KEITH 1.2.840.114 [id number] Univers 00:00:00 00:00:00 Only Unassigned, ENMA 350.1.13.10 [facility] 4.2.7.2.686 Aiden as [phone] [facility] [address] 2020-10-27 2020-10-27 Outpatient STLMLC STLMLC [id number] Common 00:00:00 00:00:00 [facility] 2020-10-26 2020-10-26 [facility] 1.2.840.114 [id number] Univers 00:00:00 00:00:00 Janet Foss 350.1.13.10 i ty of [place].2.[place] [phone] [place] dical nal [address] 2020-10-19 2020-10-19 Patient Leo [facility] 1.2.840.114 [id number] Univers 00:00:00 00:00:00 Outreach Willy PRIMARY 350.1.13.10 i ty of [facility] 4.2.7.2.[place] [phone] [place] dical [address] 2020-09-05 2020-09-05 Outpatient STLMLC STLMLC [id number] Common 00:00:00 00:00:00 [facility] 2020-09-01 2020-09-01 Outpatient STLMLC STLMLC [id number] Common 00:00:00 00:00:00 [facility] 2020-08-21 2020-08-21 Orders Doctor PARKER 1.2.840.114 [id number] 00:00:00 00:00:00 Only Unassigned, ENMA 350.1.13.10 [place] [facility] 4.2.7.2.686 [phone] 009 2020-08-21 2020-08-21 Orders Doctor KEITH 1.2.840.114 [id number] Univers 00:00:00 00:00:00 Only Unassigned, ENMA 350.1.13.10 ity of [place] [facility] 4.2.7.2.686 Aiden as [phone] [address] 2020-08-19 2020-08-19 Telephone Jovel, [facility] 1.2.059.981 [id number] 00:00:00 00:00:00 Janet Foss 350.1.13.10 [place] 4.2.7.2.686 Professio [phone] [facility] 220 [facility] 2020-08-19 2020-08-19 Telephone Jovel, [facility] 1.2.020.831 [id number] Univers 00:00:00 00:00:00 Janet Foss 350.1.13.10 i ty of [place] [phone] [place] dical [address] 2020-08-10 2020-08-10 Telephone Christiano, [facility] 1.2.952.735 [id number] 00:00:00 00:00:00 Ruslancindy Ayala 350.1.13.10 [place] 4.2.7.2.686 Professio [phone] [address] 2020-08-10 2020-08-10 Orders Doctor KEITH 1.2.840.114 [id number] 00:00:00 00:00:00 Only Unassigned, ENMA 350.1.13.10 [place] [facility] 4.2.7.2.686 [phone] 2020-08-10 2020-08-10 Outpatient STLMLC STLMLC [id number] Common 00:00:00 00:00:00 [facility] 2020-08-10 2020-08-10 Telephone Christiano, [facility] 1.2.862.077 [id number] Univers 00:00:00 00:00:00 Kvng Ayala 350.1.13.10 ity of [place].2.[place] [phone] [place] dical nal 059 [facility] 2020-08-10 2020-08-10 Orders Doctor KEITH 1.2.840.114 [id number] Univers 00:00:00 00:00:00 Only Unassigned, ENMA 350.1.13.10 ity of [place] [facility] 4.2.7.2.686 Aiden as [phone] [address] 2020-08-04 2020-08-04 Outpatient STLMLC STLMLC [id number] Common 00:00:00 00:00:00 [facility] 2020-08-03 2020-08-03 Outpatient STLMLC STLMLC [id number] Common 00:00:00 00:00:00 [facility] 2020-08-03 2020-08-03 Outpatient STLMLC STLMLC [id number] Common 00:00:00 00:00:00 [facility] 2020-08-02 2020-08-02 Outpatient STLMLC STLMLC [id number] Common 00:00:00 00:00:00 [facility] 2020-07-26 2020-07-26 Outpatient STLMLC STLMLC [id number] Common 00:00:00 00:00:00 [facility] 2020-07-21 2020-07-21 Orders Doctor PARKER 1.2.840.114 [id number] 00:00:00 00:00:00 Only Unassigned, ENMA 350.1.13.10 [place] [facility] 4.2.7.2.686 [phone] 2020-07-21 2020-07-21 Orders Doctor PARKER 1.2.840.114 [id number] Univers 00:00:00 00:00:00 Only Unassigned, ENMA 350.1.13.10 ity of [place] [facility] 4.2.7.2.686 Aiden as [phone] [address] 2020-07-19 2020-07-19 Office Med [facility] 1.2.840.114 [id number] 13:46:13 15:13:39 Visit Janet Ayala 350.1.13.10 [place] 4.2.7.2.686 Professio [phone] [address] 2020-07-19 2020-07-19 [facility] 1.2.840.114 [id number] Univers 13:46:13 15:13:39 Visit Janet Ayala 350.1.13.10 i ty of [place] 4[place] [phone] [address] 2020-07-19 2020-07-19 [facility] [id number] Univers 14:00:00 14:00:[address] [facility] 2020-07-14 2020-07-14 [facility] 1.2.840.114 [id number] Univers 00:00:00 00:00:00 Janet Herbertton 350.1.13.10 i ty of [place] [phone] [address] 2020-07-13 2020-07-13 Outpatient STLMLC STLMLC [id number] Common 00:00:00 00:00:00 [facility] 2020-07-11 2020-07-11 Outpatient STLMLC STLMLC [id number] Common 00:00:00 00:00:00 [facility] 2020-07-05 2020-07-05 Outpatient STLMLC STLMLC [id number] Common 00:00:00 00:00:00 [facility] 2020-07-04 2020-07-04 [facility]phone [facility] [id number] Univers 00:00:00 00:00:00 Janet Ayala [id number] [id number] [phone] [address] 2020-07-04 2020-07-04 Orders Doctor PARKER [id number] Univers 00:00:00 00:00:00 Only Unassigned, ENMA [id number] ity of [place] [facility] [id number] Aiden as [phone] [address] 2020-06-23 2020-06-23 Outpatient STLMLC STLMLC [id number] Common 00:00:00 00:00:00 [facility] 2020-06-21 2020-06-21 Outpatient STLMLC STLMLC [id number] Common 00:00:00 00:00:00 [facility] 2020-06-13 2020-06-13 Refill Med [facility] [id number] [id number] Univers 00:00:00 00:00:00 [facility] [id number] [phone] dic[address] 2020-03-25 2020-03-25 [facility] 1.2.840.114 [id number] Univers 00:00:00 00:00:00 [facility] [id number] [phone] [place] 2020-03-22 2020-03-22 Outpatient R [facility] [id number] Univers 09:30:00 09:30:00 ity of [facility] 2020-03-16 2020-03-16 [facility] [id number] [id number] Univers 08:44:01 10:50:35 Visit [facility] [id number] [id number] [phone] [address] 2020-03-16 2020-03-16 Outpatient R MED [facility] [id number] Univers 09:30:00 09:30:00 [facility] 2020-03-16 2020-03-16 Orders Doctor KEITH [id number] [id number] Univers 00:00:00 00:00:00 Only Unassigned, ENMA [id number] ity of [place] [facility] 4.2.7.2.686 [place] as [phone] [address] 2020-03-03 2020-03-03 Telephone Med [facility] [id number] Univers 00:00:00 00:00:00 Wentong Foss 350.1.13.10 [phone] [facility] [address] [facility] 2020-02-08 2020-02-08 [facility] [id number] Univers 00:00:00 00:00:00 Wentong Foss [id number] i [id number] [phone] [address] 2020-01-27 2020-01-27 Outpatient [facility] [id number] Univers 13:00:00 13:00:[address] [facility] 2019-12-29 2019-12-29 Telephone [facility] [id number] Univers 00:00:00 00:00:00 Ducong Foss [id number] [id number] [phone] [address] 2019-11-16 2019-11-16 [facility] [id number] Common 21:46:00 21:46:00 [facility] it [facility] 2019-11-16 2019-11-16 [facility] [id number] Common 11:00:00 11:00:00 [facility] it [facility] 2019-10-21 2019-10-21 Nurse KEITH Cedeno [id number] Univers 00:00:00 00:00:00 Triage Harriett Crowder ENMA [id number] it y of HOSPITAL [id number] [place] as [phone] [address] 2019-10-03 2019-10-03 Orders Doctor PARKER [id number] Univers 00:00:00 00:00:00 Only Unassigned, ENMA [id number] ity of [place] [facility] [id number] [place] as [phone] [facility] [address] 2019-09-23 2019-09-23 Office [facility] [id number] [facility] 12:00:21 14:11:36 Visit Janet Ayala [id number] [id number] [phone] [place] 220 [facility] 2019-08-17 2019-08-17 [facility] [id number] Common 21:59:00 21:59:[address] [facility] 2019-08-17 2019-08-17 [facility] [id number] Common 10:45:00 10:45:[address] [facility] 2019-07-08 2019-07-08 [facility] [id number] Common 16:20:00 16:20:[address] [facility] 2019-07-07 2019-07-07 [facility] [id number] Common 17:00:00 17:00:[address] [facility] 2019-06-12 2019-06-12 [facility] [id number] Common 13:23:00 13:23:[address] [facility] [facility] [address] [facility] 2019-05-01 2019-05-01 [facility] [id number] Common 15:10:00 15:10:[address] [facility] 2019-04-16 2019-04-16 Telephone [facility] [id number] [facility] 00:00:00 00:00:00 Janet Ayala [id number] i [id number] [phone] [place] 220 [facility] 2019-04-01 2019-04-01 April Doherty ALMASSIMO [id number] Univers 00:00:00 00:00:00 Shaila Ayala [id number] i ty Erin Marvin [id number] Aidensocorro boyd Jeramy [phone] [place]ical [place] [address] 2019-02-24 2019-02-24 [facility] [id number] Common 09:00:00 09:00:[address] [facility] 2018-08-27 2018-08-27 [facility] [id number] Common 14:30:00 14:30:[address] [facility] 2018-05-24 2018-05-24 [facility] [id number] Common 01:17:00 01:17:[address] [facility] 2018-05-24 2018-05-24 [facility] [id number] Common 00:43:00 00:43:[address] [facility] 2018-05-23 2018-05-23 [facility] [id number] Common 10:00:00 10:00:[address] [facility] 2018-04-30 2018-04-30 [facility] [id number] Common 09:49:00 09:49:[address] [facility] 2018-03-24 2018-03-24 [facility] [id number] Common 17:24:00 17:24:[address] [facility] 2018-02-25 2018-02-25 [facility] [id number] Common 13:33:00 13:33:[address] [facility] 2018-02-21 2018-02-21 [facility] [id number] Common 16:46:00 16:46:[address] [facility] 2018-02-20 2018-02-20 [facility] [id number] Common 19:27:00 19:27:[address] [facility] 2018-02-20 2018-02-20 [facility] [id number] Common 14:15:00 14:15:[address] [facility] 2018-01-16 2018-01-16 [facility] [id number] Common 13:04:00 13:04:[address] [facility] 2017-11-14 2017-11-14 [facility] [id number] Common 11:30:00 11:30:[address] [facility] 2017-11-11 2017-11-11 [facility] [id number] Common 14:51:00 14:51:[address] [facility] Results Test Description Test Time Test Comments Results Result Comments Source POCT HEMOGLOBIN A1C TEST 2022-02-13 20:57:00 Test Item Value Reference Range Interpretation Comme nts POCT HBA1C (test code = 4548-4) 7.5 % 4-6 A Lab Interpretation (test code = 81786-4) [facility] [Presence] in Respiratory specimen by JANETT with probe [id number] 22:34:32 Test Item Value Reference Range Interpretation Comments SARS-CoV-2 (COVID-19) RNA Not detected Not-Detected [Presence] in Respiratory specimen by JANETT with probe detection (test code = 68426-4) Whether patient is employed in a healthcare setting (test code = 36347-9) Whether the patient has symptoms related to condition of interest (test code = 62762-8) Patient was hospitalized because of this condition (test code = 96284-0) Whether the patient was admitted to intensive care unit (ICU) for condition of interest (test code = 67499-9) Whether patient resides in a congregate care setting (test code = 36048-7) LENO AHUJA
[2022-06-20] MEDS ORDERED: FENTANYL CITR 100 MCG/2 ML ONE (10:53)
[2022-06-20] MEDS ORDERED: PANTOPRAZOLE 40 MG INJ ONE (10:53)
[2022-06-20] MEDS ORDERED: NA CHLORIDE 0.9% 500 ML ONE (10:54)
[2022-06-20 10:57] LABS: Absolute Lymphocytes (CBC) 2.7 K/uL (0.7-4.9); Hematocrit 36.2 % (39.6-49.0); Lymphocytes % 25.7 % (15.3-44.8); MCV 85.4 fL (80-100); MPV 7.5 fL (7.6-11.3); RBC Red Blood Cell Count 4.23 M/uL (4.33-5.43)
--- NOTE | 2022-06-20 11:00 | RAD REPORT ---
EXAM DESCRIPTION: RAD - Chest Single View - 06/20/2022 10:54 am CLINICAL HISTORY: syncope, GI bleed COMPARISON: CHEST SINGLE VIEW dated 12/29/2014; CHEST SINGLE VIEW dated 09/01/2012; CHEST SINGLE VIEW dated 06/13/2009; CHEST PA AND LAT 2 VIEW dated 02/19/2006 FINDINGS: Lines: None. Lungs: No evidence of edema or pneumonia. Pleural: No significant pleural effusions or pneumothorax. Cardiac: Similar size and configuration. Mediastinum: Within normal limits. Bones: No acute fractures. Other: None IMPRESSION: No acute cardiopulmonary disease.
[2022-06-20 11:21] LABS: SARS-CoV-2 Antigen Rapid Res Negative (Negative)
[2022-06-20 11:24] LABS: Albumin 3.1 g/dL (3.4-5.0); Bilirubin Total 0.7 mg/dL (0.2-1.0); Potassium 4.4 mmol/L (3.5-5.1); Protein, Total 6.7 g/dL (6.4-8.2); Troponin High Sensitivity 14.6 pg/mL (<58.9)
[2022-06-20] MEDS ORDERED: Acetylcysteine 6000mg/30mL IV ONE (11:56)
[2022-06-20] MEDS ORDERED: NA CHLORIDE 0.9% 1,000 ML ONE ×2 (11:56→18:04)
[2022-06-20] MEDS ORDERED: FAMOTIDINE 20 MG/2 ML VIAL IV ONE (11:56)
[2022-06-20] MEDS ORDERED: NA CHLORIDE 0.9% 50 ML IV ONE (11:57)
--- NOTE | 2022-06-20 12:04 | RAD REPORT ---
EXAM DESCRIPTION: CTAbdomen Pelvis W Contrast - 06/20/2022 11:44 am CLINICAL HISTORY: GIB COMPARISON: No comparisons TECHNIQUE: CT of the abdomen and pelvis was performed. All CT scans are performed using dose optimization technique as appropriate and may include automated exposure control or mA/KV adjustment according to patient size. FINDINGS: Lower chest: Multi-vessel coronary artery disease. Liver: Hepatic steatosis Biliary: No biliary ductal dilatation. Stomach: No significant focal abnormality. Duodenum: No significant focal abnormality. Pancreas: No significant abnormality. Spleen: No significant abnormality. Adrenal: No suspicious lesions. Kidney/ureter: No hydronephrosis. No renal calculi. Retroperitoneum: No retroperitoneal adenopathy. Vascular: No aneurysm. Mild atherosclerosis Bowel: No significant focal abnormality. Normal appendix. Peritoneum: No ascites or free air. Tiny fat containing umbilical hernia. Bladder: Grossly unremarkable. Reproductive: No adnexal masses. Bones: No acute fracture. Other: n/a IMPRESSION: No acute intra-abdominal or pelvic finding. Specifically, no source of gastrointestinal bleeding is identified.
--- NOTE | 2022-06-20 13:56 | EDPHYS ---
Physician Documentation [facility] Name: Favio Solomon Jr Age: 66 yrs Sex: Male : 1955 Arrival Date: 06/20/2022 Time: 10:08 Bed 3 Private MD: ED Physician Vandana Callahan HPI: 06/20 11:14 This 66 yrs old Male presents to ER via Wheelchair with complaints of Rectal snw Bleeding. 11:14 The patient presents to the emergency department with bleeding from the rectum/anus, snw that is severe. Onset: The symptoms/episode began/occurred suddenly, last night, and became persistent. Context: the patient is post surgical, on June 12, 2022, colonoscopy with polyp removal, pt held plavix x 5 days. started the plavix again but began bleeding last pm. Associate signs and symptoms: Pertinent positives: lower GI bleeding, in toilet bowl. The patient has not experienced similar symptoms in the past. Pt had colonoscopy 06/[address] Hendrix. Historical: - Allergies: 10:27 benazepril; iw 10:27 Lotrel; iw 10:28 Farxiga; iw 10:28 Lisinopril; iw - Home Meds: 10:28 Tresiba FlexTouch U-100 100 unit/mL (3 mL) subcutaneous inpn [Active]; metoprolol iw tartrate 50 mg Oral tab nightly [Active]; hydralazine 100 mg Oral tab 1 tab 3 times per day [Active]; - PMHx: 10:27 Diabetes - IDDM; Hypertension; MN; stroke; iw - Immunization history:: Adult Immunizations Client reports receiving the 2nd dose of the Covid vaccine. - Social history:: Smoking status: Patient denies any tobacco usage or history of. ROS: 10:45 Eyes: Negative for injury, pain, redness, and discharge, ENT: Negative for injury, snw pain, and discharge, Neck: Negative for injury, pain, and swelling, Cardiovascular: Negative for chest pain, palpitations, and edema, Respiratory: Negative for shortness of breath, cough, wheezing, and pleuritic chest pain. 10:45 Back: Negative for injury and pain, : Negative for injury, bleeding, discharge, and swelling, MS/Extremity: Negative for injury and deformity, Skin: Negative for injury, rash, and discoloration, Neuro: Negative for headache, weakness, numbness, tingling, and seizure. 10:45 Constitutional: Positive for body aches, malaise. 10:45 Abdomen/GI: Positive for rectal bleeding. Exam: 10:45 Head/Face: Normocephalic, atraumatic. Eyes: Pupils equal round and reactive to light, snw extra-ocular motions intact. Lids and lashes normal. Conjunctiva and sclera are pale, non-icteric and not injected. Cornea within normal limits. Periorbital areas with no swelling, redness, or edema. ENT: Nares patent. No nasal discharge, no septal abnormalities noted. Tympanic membranes are normal and external auditory canals are clear. Oropharynx with no redness, swelling, or masses, exudates, or evidence of obstruction, uvula midline. Mucous membranes moist. Neck: Trachea midline, no thyromegaly or masses palpated, and no cervical lymphadenopathy. Supple, full range of motion without nuchal rigidity, or vertebral point tenderness. No Meningismus. Chest/axilla: Normal chest wall appearance and motion. Nontender with no deformity. No lesions are appreciated. Cardiovascular: Regular rate and rhythm with a normal S1 and S2. No gallops, murmurs, or rubs. Normal PMI, no JVD. No pulse deficits. Respiratory: Lungs have equal breath sounds bilaterally, clear to auscultation and percussion. No rales, rhonchi or wheezes noted. No increased work of breathing, no retractions or nasal flaring. 10:45 Constitutional: The patient appears awake, diaphoretic, listless, in obvious distress, pale. 10:45 Abdomen/GI: Inspection: obese Bowel sounds: diminished, Palpation: nontender, Rectal exam: jossue blood. 10:45 Skin: Appearance: Color: pale, Temperature: normal temperature, Moisture: diaphoretic. Vital Signs: 10:25 BP 90 / 57; Pulse 66; Resp 16; Pulse Ox 100% on R/A; Weight 107.05 kg; Height 5 ft. 7 iw in. (170.18 cm); 10:40 BP 78 / 59; Pulse 61; Resp 18; Pulse Ox 99% on R/A; ph 11:00 BP 104 / 71; Pulse 55; Resp 18; Pulse Ox 100% on R/A; ph 12:15 BP 122 / 65; Pulse 59; Resp 18; Pulse Ox 100% on R/A; ph 13:08 BP 134 / 78; Pulse 53; Resp 18; Pulse Ox 100% on R/A; ph 14:00 BP 128 / 77; Pulse 58; Resp 16; Pulse Ox 97% on R/A; ph 15:00 BP 105 / 53; Pulse 77; Resp 16; Pulse Ox 97% on R/A; ph 16:00 BP 129 / 79; Pulse 76; Resp 18; Pulse Ox 100% on R/A; ph 17:21 BP 127 / 75; Pulse 77; Resp 16; Pulse Ox 98% on R/A; ph 18:16 BP 127 / 57; Pulse 83; Resp 18; Temp 97.8; Pulse Ox 97% on R/A; ph 19:32 BP 125 / 52; Pulse 82; Resp 19; Pulse Ox 98% ; kd3 19:48 BP 142 / 73; Pulse 87; Resp 23; Pulse Ox 97% on R/A; as6 20:54 BP 125 / 70; Pulse 96; Resp 17 S; Pulse Ox 99% on R/A; as6 21:18 BP 142 / 73; Pulse 74; Resp 17 S; Pulse Ox 99% on R/A; as6 10:25 Body Mass Index 36.96 (107.05 kg, 170.18 cm) iw MDM: 11:18 Patient medically screened. snw 13:52 Data reviewed: vital signs, nurses notes. Data interpreted: Pulse oximetry: on room air snw is 100 %. Interpretation: normal. Counseling: I had a detailed discussion with the patient and/or guardian regarding: the historical points, exam findings, and any diagnostic results supporting the discharge/admit diagnosis, lab results, radiology results, the need for further work-up and treatment in the hospital. Physician consultation: Raymond Hendrix MD was called at 13:30, regarding consult, patient's condition, need to evaluate the patient as soon as possible. Admission orders: after a detailed discussion of the patient's condition and case, the admit orders are written by me. 13:52 Physician consultation: Iraj Lau NP was called at 13:53, was contacted at 13:53, snw regarding admission, to the ICU, would like admission per Dr. Damien Mcpherson MD. 14:05 Physician consultation: Raymond Hendrix MD was called at 14:06, was contacted at 14:06, snw regarding consult, Dr. Hendrix will see pt in ICU. Repeat H/H in 2 hours (1600). 16:40 ED course: Pt declines admission, demands transfer. Dr. Hendrix notified. Dr. Hendrix snw spoke with the patient and called Dr. Urrutia. Dr. Urrutia's partner accepts pt in transfer to [facility]. Transfer center again contacted. 18:05 Physician consultation: Dr Hinson was called at 18:05, was contacted at 18:05, snw regarding regarding transfer, Dr. Hinson kindly accepts pt in transfer. 20:46 ED course: 4 units crossmatched blood to be available, give 2 units now each over 1 snw hour. H/H at 1600 10.3, 2014 draw H/H 9.5. 20:50 Physician consultation: Pt still awaiting bed at accepting MD facility. Pt has had 3 snw more episodes of hematochezia. Hgb to 9.5. Pt to receive blood in ED. Report and care transferred to ED MD Dr. Callahan.. 21:03 ED course: Patient signed out to me by daytime team consisting of physician and sp3 midlevel provider. Patient is set to be transferred to [facility] for GI bleed. Patient's hemoglobin continues to drop and he continues to have bloody bowel movements. We have ordered 2 units PRBCs and I explained to the patient that we can fully take care of him here including endoscopy with GI team. However he emphatically does not want to be serviced here and wants to go to [facility]. We have attempted to reach to multiple times seeking bed placement they have graciously excepted the patient but do not have bed availability currently. She is at this time now contemplating leaving AMA and driving himself to another institution which we do not recommend but understand if that is what he wants to do.. 06/20 10:39 Order name: CBC with Diff; Complete Time: 11:17 iw 06/20 10:39 Order name: CMP; Complete Time: 11:32 iw 06/20 10:39 Order name: Lipase; Complete Time: 11:32 iw 06/20 10:39 Order name: Type And Screen iw 06/20 10:39 Order name: Basic Metabolic Panel iw 06/20 10:39 Order name: Troponin HS; Complete Time: 11:32 iw 06/20 10:48 Order name: SARS RAPID; Complete Time: 11:32 snw 06/20 11:12 Order name: Glucose, Ancillary Testing; Complete Time: 11:17 EDMS 06/20 12:54 Order name: ABO/RH no charge; Complete Time: 13:05 EDMS 06/20 13:31 Order name: Hemoglobin; Complete Time: 13:42 EDMS 06/20 13:31 Order name: Hematocrit; Complete Time: 13:42 EDMS 06/20 15:54 Order name: Hemoglobin; Complete Time: 16:29 ph 06/20 10:39 Order name: XRAY Chest (1 view); Complete Time: 11:17 iw 06/20 11:41 Order name: Abdomen ; Complete Time: 12:10 EDMS 06/20 15:54 Order name: Hematocrit; Complete Time: 16:29 ph 06/20 20:12 Order name: Hemoglobin; Complete Time: 20:43 as6 06/20 20:12 Order name: Hematocrit; Complete Time: 20:43 as6 06/20 10:39 Order name: IV Saline Lock; Complete Time: 11:01 iw 06/20 10:39 Order name: Labs collected and sent; Complete Time: 11:01 iw 06/20 10:39 Order name: EKG; Complete Time: 10:40 iw 06/20 10:39 Order name: Cardiac monitoring; Complete Time: 11:08 iw 06/20 10:39 Order name: EKG - Nurse/Tech; Complete Time: 13:08 iw 06/20 10:39 Order name: O2 Per Protocol; Complete Time: 11:08 iw 06/20 10:39 Order name: O2 Sat Monitoring; Complete Time: 11:08 iw EC:00 Rate is 51 beats/min. Rhythm is regular. QRS [place] is Normal. Clinical impression: Sinus snw bradycardia. Administered Medications: 10:55 Drug: ProTONIX (pantoprazole) 40 mg Route: IVP; Site: right antecubital; ph 13:07 Follow up: Response: No adverse reaction ph 10:55 Drug: NS 0.9% 500 ml Route: IV; Rate: bolus; Site: right antecubital; ph 12:00 Follow up: Response: No adverse reaction; IV Status: Completed infusion; IV Intake: ph 500ml 10:55 Drug: fentaNYL (PF) 25 mcg {Note: placed in 500 mL NS bolus per order.} Route: IVP; ph Site: right antecubital; 11:30 Follow up: Response: No adverse reaction; Pain is decreased; RASS: Alert and Calm (0) ph 12:14 Drug: Acetylcysteine 600 mg {Note: mixed in 50 mL NS administered over 1 hour.} Route: ph IV; Rate: calculated rate; Site: right antecubital; 13:06 Follow up: Response: No adverse reaction; IV Status: Completed infusion ph 12:14 Drug: NS 0.9% 1000 ml Route: IV; Rate: 125 ml/hr; Site: right antecubital; ph 19:44 Follow up: Response: No adverse reaction; IV Status: Infusion continued upon transfer ph 12:14 Drug: Pepcid (famotidine) 20 mg Route: IVP; Site: right antecubital; ph 13:08 Follow up: Response: No adverse reaction ph 13:06 Drug: fentaNYL (PF) 25 mcg Route: IVP; Site: left wrist; ph 13:08 Follow up: Response: No adverse reaction; Pain is decreased; RASS: Alert and Calm (0) ph 18:16 Drug: fentaNYL (PF) 25 mcg Route: IVP; Site: right antecubital; ph 19:34 Follow up: Response: No adverse reaction; Pain is decreased kd3 Point of Care Testing: Blood Glucose: 10:40 Blood Glucose: 128 mg/dL; iw Ranges: Critical Glucose Levels:Adult <50 mg/dl or >400 mg/dl <40 mg/dl or >180 mg/dl Disposition: 21:16 Attestation: The patient's history, exam findings, diagnostics, and a summary of any sp3 interventions or procedures was reviewed in detail with Vandana Callahan MD. Disposition Summary: 06/20/22 21:18 Left Against Medical Advice Location: Home(06/20/22 21:18) sp3 Problem: an acute exacerbation(06/20/22 21:18) sp3 Symptoms: have worsened(06/20/22 21:18) sp3 Condition: Critical(06/20/22 21:18) sp3 Diagnosis - GI Bleed/ Gastrointestinal hemorrhage, unspecified(06/20/22 21:18) sp3 - Against medical advice sp3 Discharge Instructions: - Discharge Summary Sheet sp3 Signatures: Dispatcher [employer] EDSharla Nichols, AIR DEODORIZER SERVICER-C AIR DEODORIZER SERVICER-Csnw Janeth Lang, RN RN Danyelle Rob RN RN ph Patel, Setul, MD MD sp3 Savanna Toth RN kd3 Corrections: (The following items were deleted from the chart) 11:29 10:49 Abdomen Pelvis W Con+CT.RAD.BRZ ordered. EDMN EDMS 11:41 11:29 Abdomen ordered. [facility] EDMS 17:25 17:21 ED course: Pt declines admission, demands transfer. Dr. Hendrix notified. Dr. cordelia Hendrix spoke with the patient and called Dr. Urrutia. Dr. Urrutia's partner accepts pt in transfer to [facility]. Transfer center again contacted. snw 17:36 13:50 Hemoglobin+H.LAB.BRZ ordered. EDMN EDMS 17:36 13:50 Hematocrit+H.LAB.BRZ ordered. [facility] EDMS 17:36 13:55 Inpatient Admission snw snw 17:36 13:55 Damien Mcpherson snw snw 17:36 13:55 Intensive Care Unit snw snw 17:36 13:55 Stable snw snw 17:36 13:55 new snw snw 17:36 13:55 are unchanged snw snw 17:36 13:55 Standard snw snw 17:36 13:55 snw snw 17:36 13:55 GI Bleed/ Gastrointestinal hemorrhage, unspecified - s/p colonoscopy snw snw 17:36 17:36 Inpatient Admission snw snw 17:36 17:36 Damien Mcpherson snw snw 20:49 20:46 ED course: 4 units crossmatched blood to be available, give 2 units now each over snw 1 hour. H/H at 1600 10.3/32, 2014 draw H/H 9.7/31. snw 21:17 18:07 Dr. Hinson snw sp3 21:17 18:07 [facility] snw sp3 : 18:07 Higher level of care snw sp3 : 18:07 Stable snw sp3 21: 18:07 new snw sp3 : 18:07 are unchanged snw sp3 : 18:07 GI Bleed/ Gastrointestinal hemorrhage, unspecified snw sp3
--- NOTE | 2022-06-20 13:56 | ER ---
Nurse's Notes [facility] Name: Favio Solomon Jr Age: 66 yrs Sex: Male : 1955 Arrival Date: 06/20/2022 Time: 10:08 Bed 3 Private MD: Diagnosis: GI Bleed/ Gastrointestinal hemorrhage, unspecified;Against medical advice Presentation: 06/20 10:25 Chief complaint: Patient states: dark red blood in stool since 11 pm, has had about 8 iw episodes since then, feels weak, dizzy, had a colonoscopy done on Saturday , they removed 10 polyps, by , pt denies pain, no vomiting. Coronavirus screen: At this time, the client does not indicate any symptoms associated with coronavirus-19. Ebola Screen: Patient negative for fever greater than or equal to 101.5 degrees Fahrenheit, and additional compatible Ebola Virus Disease symptoms Patient denies exposure to infectious person. Patient denies travel to an Ebola-affected area in the 21 days before illness onset. No symptoms or risks identified at this time. Initial Sepsis Screen: Does the patient meet any 2 criteria? No. Patient's initial sepsis screen is negative. Does the patient have a suspected source of infection? No. Patient's initial sepsis screen is negative. Risk Assessment: Do you want to hurt yourself or someone else? Patient reports no desire to harm self or others. Onset of symptoms was June 19, 2022. 10:25 Method Of Arrival: Wheelchair iw 10:25 Acuity: SJ 2 iw Historical: - Allergies: 10:27 benazepril; iw 10:27 Lotrel; iw 10:28 Farxiga; iw 10:28 Lisinopril; iw - Home Meds: 10:28 Tresiba FlexTouch U-100 100 unit/mL (3 mL) subcutaneous inpn [Active]; metoprolol iw tartrate 50 mg Oral tab nightly [Active]; hydralazine 100 mg Oral tab 1 tab 3 times per day [Active]; - PMHx: 10:27 Diabetes - IDDM; Hypertension; FL; stroke; iw - Immunization history:: Adult Immunizations Client reports receiving the 2nd dose of the Covid vaccine. - Social history:: Smoking status: Patient denies any tobacco usage or history of. Screenin:05 Abuse screen: Denies threats or abuse. Denies injuries from another. Nutritional ph screening: No deficits noted. Tuberculosis screening: No symptoms or risk factors identified. Fall Risk None identified. Assessment: 10:35 General: Appears in no apparent distress. uncomfortable, Behavior is calm, cooperative. ph Pain: Complains of pain in knee. Neuro: Level of Consciousness is awake, alert, obeys commands, Oriented to person, place, time, situation, Reports dizziness, weakness. Cardiovascular: Reports diaphoresis, lightheadedness. Respiratory: Airway is patent Respiratory effort is even, unlabored. GI: Reports rectal bleeding, bloody stool. Derm: Skin is clammy, Skin is pale. Musculoskeletal: Circulation, motion, and sensation intact. 11:30 Reassessment: Patient appears in no apparent distress at this time. Patient and/or ph family updated on plan of care and expected duration. Pain level reassessed. Patient is alert, oriented x 3, equal unlabored respirations, skin warm/dry/pink. Pt resting comfortably denies dizziness at this time. 12:45 Reassessment: Patient appears in no apparent distress at this time. Patient and/or ph family updated on plan of care and expected duration. Pain level reassessed. Patient is alert, oriented x 3, equal unlabored respirations, skin warm/dry/pink. repeat H\\T\\H sent to lab. 13:15 Reassessment: Pt up to bedside commode for BM, liquid stool dark red in appearance ph noted. 14:00 Reassessment: Patient appears in no apparent distress at this time. Patient and/or ph family updated on plan of care and expected duration. Pain level reassessed. Patient is alert, oriented x 3, equal unlabored respirations, skin warm/dry/pink. Pt and family requesting transfer to [facility], states, " My here and 2 other family members here. No offense or anything but I feel like everything happens to slow here and I'd feel safer going to [place]. My last bowel movement the blood looked thicker and I'm worried about my stent in my heart if my blood is too thick." ERP aware of pt request. 15:35 Reassessment: Patient appears in no apparent distress at this time. Patient and/or ph family updated on plan of care and expected duration. Pain level reassessed. Pt up at bedside to have BM, liquid BM that appears to be dark blood, when standing up from bedside commode pt began to c/o dizziness and nausea, noted to be clammy/diaphoretic, assisted back into bed by sin, BP low at 94/60, 500 bolus NS given. 17:25 Reassessment: Patient appears in no apparent distress at this time. Patient and/or ph family updated on plan of care and expected duration. Pain level reassessed. Patient is alert, oriented x 3, equal unlabored respirations, skin warm/dry/pink. BP has improved, pt reports that dizziness and nausea have improved as well, continue to request transfer to [place], states, " Dr Hendrix spoke w/ a GI doctor at [facility] who said he would accept me. 19:33 General: Appears in no apparent distress. uncomfortable, Behavior is calm, cooperative. kd3 Neuro: Level of Consciousness is awake, alert, obeys commands, Oriented to person, place, time, situation. Respiratory: Airway is patent Trachea midline Respiratory effort is even, unlabored. GI: Reports rectal bleeding, bloody stool. 19:49 General: pt passing large amounts of bloody stools. as6 20:55 General: Reports fatigue for. Derm: Skin is dusky. as6 Vital Signs: 10:25 BP 90 / 57; Pulse 66; Resp 16; Pulse Ox 100% on R/A; Weight 107.05 kg; Height 5 ft. 7 iw in. (170.18 cm); 10:40 BP 78 / 59; Pulse 61; Resp 18; Pulse Ox 99% on R/A; ph 11:00 BP 104 / 71; Pulse 55; Resp 18; Pulse Ox 100% on R/A; ph 12:15 BP 122 / 65; Pulse 59; Resp 18; Pulse Ox 100% on R/A; ph 13:08 BP 134 / 78; Pulse 53; Resp 18; Pulse Ox 100% on R/A; ph 14:00 BP 128 / 77; Pulse 58; Resp 16; Pulse Ox 97% on R/A; ph 15:00 BP 105 / 53; Pulse 77; Resp 16; Pulse Ox 97% on R/A; ph 16:00 BP 129 / 79; Pulse 76; Resp 18; Pulse Ox 100% on R/A; ph 17:21 BP 127 / 75; Pulse 77; Resp 16; Pulse Ox 98% on R/A; ph 18:16 BP 127 / 57; Pulse 83; Resp 18; Temp 97.8; Pulse Ox 97% on R/A; ph 19:32 BP 125 / 52; Pulse 82; Resp 19; Pulse Ox 98% ; kd3 19:48 BP 142 / 73; Pulse 87; Resp 23; Pulse Ox 97% on R/A; as6 20:54 BP 125 / 70; Pulse 96; Resp 17 S; Pulse Ox 99% on R/A; as6 21:18 BP 142 / 73; Pulse 74; Resp 17 S; Pulse Ox 99% on R/A; as6 10:25 Body Mass Index 36.96 (107.05 kg, 170.18 cm) iw Vitals: 11:00 Cardiac Rhythm Assessment Sinus jagruti. ph ED Course: 10:08 Patient arrived in ED. as 10:11 Jamie Nicole MD is Attending Physician. kdr 10:27 Triage completed. iw 10:27 Arm band placed on. iw 10:40 Initial lab(s) drawn, by me, sent to lab. T\\T\\S collected, blood band applied to patient. ph Inserted saline lock: 18 gauge in right antecubital area, using aseptic technique. Blood collected. Inserted saline lock: 18 gauge in left wrist, using aseptic technique. 10:56 XRAY Chest (1 view) In Process Unspecified. EDMS 11:05 Danyelle Rob, RN is Primary Nurse. ph 11:06 Patient has correct armband on for positive identification. Placed in gown. Bed in low ph position. Call light in reach. Side rails up X2. Client placed on continuous cardiac and pulse oximetry monitoring. NIBP monitoring applied. Door closed. Noise minimized. 11:14 Sharla Quevedo, CREATIVE DESIGNER-C is PHCP. snw 11:46 Abdomen In Process Unspecified. EDMS 13:55 Damien Mcpherson MD is Hospitalizing Provider. snw 14:52 initiated transfer to [facility]. bd 16:50 initiated transfer to [facility]. bd 18:16 No provider procedures requiring assistance completed. Patient transferred, IV remains ph in place. 19:33 Assisted to bedside commode. kd3 19:37 Primary Nurse role handed off by Danyelle Rob, RN kd3 19:37 Savanna Toth RN is Primary Nurse. kd3 20:25 Hemoglobin Sent. as6 20:25 Hematocrit Sent. as6 20:32 Called [facility] to get an update regarding acceptance, Erin stated she still doesn't have [facility] a bed, therefore we are still needing to wait for official acceptance. 20:44 Attending Physician role handed off by Jamie Nicole MD sp3 20:44 Vandana Callahan MD is Attending Physician. sp3 Administered Medications: 10:55 Drug: ProTONIX (pantoprazole) 40 mg Route: IVP; Site: right antecubital; ph 13:07 Follow up: Response: No adverse reaction ph 10:55 Drug: NS 0.9% 500 ml Route: IV; Rate: bolus; Site: right antecubital; ph 12:00 Follow up: Response: No adverse reaction; IV Status: Completed infusion; IV Intake: ph 500ml 10:55 Drug: fentaNYL (PF) 25 mcg {Note: placed in 500 mL NS bolus per order.} Route: IVP; ph Site: right antecubital; 11:30 Follow up: Response: No adverse reaction; Pain is decreased; RASS: Alert and Calm (0) ph 12:14 Drug: Acetylcysteine 600 mg {Note: mixed in 50 mL NS administered over 1 hour.} Route: ph IV; Rate: calculated rate; Site: right antecubital; 13:06 Follow up: Response: No adverse reaction; IV Status: Completed infusion ph 12:14 Drug: NS 0.9% 1000 ml Route: IV; Rate: 125 ml/hr; Site: right antecubital; ph 19:44 Follow up: Response: No adverse reaction; IV Status: Infusion continued upon transfer ph 12:14 Drug: Pepcid (famotidine) 20 mg Route: IVP; Site: right antecubital; ph 13:08 Follow up: Response: No adverse reaction ph 13:06 Drug: fentaNYL (PF) 25 mcg Route: IVP; Site: left wrist; ph 13:08 Follow up: Response: No adverse reaction; Pain is decreased; RASS: Alert and Calm (0) ph 18:16 Drug: fentaNYL (PF) 25 mcg Route: IVP; Site: right antecubital; ph 19:34 Follow up: Response: No adverse reaction; Pain is decreased kd3 Medication: 11:05 VIS not applicable for this client. ph Point of Care Testing: Blood Glucose: 10:40 Blood Glucose: 128 mg/dL; iw Ranges: Intake: 12:00 IV: 500ml; Total: 500ml. ph Outcome: 13:55 Decision to Hospitalize by Provider. snw 18:07 ER care complete, transfer ordered by . snw 21:17 AMA AMA form signed as6 21:17 Condition: stable 21:17 Instructed on pt and family intrusted on the risks of leaving. pt and family verbalizes understanding of risks of laving. pt and family told to return for any reason 21:19 Patient left the ED. as6 Signatures: Dispatcher [employer] EDMS Krystal Galeas Kevin, MD MD kdr Waters, Shelly, CREATIVE DESIGNER-C CREATIVE DESIGNER-Csnw Sofia Mcneill Irene, CHERISE LUONG iw Danyelle Rob RN RN Cliar Ladd Setul, MD MD sp3 Kemal Romero RN RN as6 Savanna Toth RN RN kd3
[2022-06-20 16:18] LABS: Hematocrit 31.3 % (39.6-49.0)
[2022-06-20 20:35] LABS: Hematocrit 28.6 % (39.6-49.0)
[2022-06-20 22:42] VITALS: TEMP 97.8
[2022-06-20 22:45] VITALS: O2SAT 99
[2022-06-20 22:47] VITALS: BP 142/73
--- NOTE | 2022-06-21 14:55 | EKG ---
Test Date: 2022-06-20 Test Time: 12:53:46 News Specialist: PH MEASUREMENT RESULTS: Intervals: Rate: 51 MO: 146 QRSD: 90 QT: 450 QTc: 414 [place]: P: 66 MO: 146 QRS: 32 T: 51 INTERPRETIVE STATEMENTS: Sinus bradycardia Otherwise normal ECG Compared to ECG 12/28/2021 13:05:35 No significant changes Electronically Signed On 06-21-22 14:53:14 DIRECTOR OF TAX SERVICES by Von Quinteros
== END 2022-06-20 21:19 | disposition left against medical advice (07) ==
LOC: ER 10:06
DX: K92.2 Gastrointestinal hemorrhage, unspecified (principal); Z98.890 Other specified postprocedural states; I10 Essential (primary) hypertension; E11.9 Type 2 diabetes mellitus without complications; Z79.4 Long term (current) use of insulin; Z20.822 Contact with and (suspected) exposure to COVID-19; Z86.73 Personal history of transient ischemic attack (TIA), and cerebral infarction without residual deficits; Z88.8 Allergy status to other drugs, medicaments and biological substances
CPT/HCPCS: 93005; 85025; 36415; 86900; 86850; 86901; 82947; 85018 ×3; 85014 ×3; 84484; 83690; 80053; 74177; 71045; 99284; 87811; Q9967; C9113; J3010; J0132; J7040; J7030 ×2

== ENCOUNTER 2022-09-05 09:13 | Day surgery (SDC) | payer OTHER ==
[2022-09-05] MEDS ORDERED: AMPICILLIN/SULBACT 3 GM in NA CHLORIDE 0.9% 100 ML IVPB ONE (10:00)
[2022-09-05 10:23] VITALS: O2SAT 100; BMI 36.9
[2022-09-05 11:19] VITALS: BP 154/78; TEMP 97.4
== END 2022-09-05 10:40 | disposition home or self-care (01) ==
LOC: DS 09:13
PROVIDERS: ATTEND Urology
DX: N39.0 Urinary tract infection, site not specified (principal)
CPT/HCPCS: 96365; J0295

== ENCOUNTER 2023-02-02 19:00 | Emergency (ER) | payer OTHER ==
--- OUTSIDE RECORDS SUMMARY | 2023-02-02 19:15 | XMS REPORT | Continuity of Care Document ---
:1955 Author Organization [facility] t Address [address] [place] [address] Care Team Providers Name Role Phone Nara Babcock MD Primary Care Physician Sheryl Kelley Attending Clinician Unavailable Alejandrina ALCANTARA Attending Clinician Unavailable Debra Albarado Attending Clinician Unavailable Radha Lux Attending Clinician Unavailable RENÉ RASCON Attending Clinician Unavailable JANET JOVEL Attending Clinician Unavailable AUNG CONLEY Attending Clinician Unavailable AUNG CONLEY Attending Clinician Unavailable Doctor Unassigned, [place] Attending Clinician Unavailable Janet Jovel MD Attending Clinician Dmitri Mckay MD Attending Clinician Cody Christian MD Attending Clinician Hermilo PALMER, Kalpesh Attending Clinician Bryan PALMER, Sai Rizvi Attending Clinician [phone] Rick PALMER, Preston Tyson Attending Clinician NARA BABCOCK Attending Clinician Unavailable MD NARA BABCOCK Attending Clinician Unavailable IGOR LANG Attending Clinician Unavailable Willy Bailey DO Attending Clinician Christiano PALMER, Kvng Attending Clinician Pao LUONG, Harriett Crowder Attending Clinician Unavailable Bessy PALMER, Shaila Long Attending Clinician Unavailable KALPESH AKHTAR Admitting Clinician Unavailable MD CODY CHRISTIAN Admitting Clinician Unavailable NARA BABCOCK Admitting Clinician Unavailable MD NARA BABCOCK Admitting Clinician Unavailable Payers Payer Name Policy Type Policy Number Effective Date Expiration Date S ource [employer] CHOICE [id number] 2022 00:00:00 [employer] [id number] 2021 MEDICARE 00:00:00 ADVANTAGE [employer] MEDICARE 53 [id number] 2022 Common Sp dhaval 00:00:00 [facility] Problems Condition Condition Condition Status Onset Resolution Last Treating Co mments Source Name Details Category Date Date Treatment Clinician Date CAD CAD Disease Active 2021-08 [facility] (coronary (coronary 1-10 st artery artery 00:00: Hospita disease) disease) 00 l DM DM Disease Active 2021-08 [facility] (diabetes (diabetes 1-10 st mellitus) mellitus) 00:00: [facility]osp [facility] 00 l HTN HTN Disease Active 2021-08 [facility] (hypertens (hypertens 1-10 st ion) ion) 00:00: Hospita 00 l Hypothyroi Hypothyroi Disease Active 2021-08 M ethodi dism dism 1-10 st 00:00: Hospita 00 l 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 00:00: Hosp [facility] behavior behavior 00 l of larynx of larynx Essential Essential Disease Active 2017-08 Uni vers hypertensi hypertensi 2-12 it y of on on 00:00: [place] 00 Medical Branch Dyslipidem Dyslipidem Disease Active 2017-08 U nivers ia ia 2-12 ity of 00:00: [place] 00 Medical Branch Stage 1 Stage 1 Disease Active 2017-08 Univers chronic chronic 2-12 ity of kidney kidney 00:00: [place] disease disease 00 Medical Branch Type 2 Type 2 Disease Active Univers diabetes diabetes 9-12 ity of mellitus mellitus 00:00: [place] with with 00 Medical cardiac cardiac Branch complicati complicati on on Stroke Stroke Problem Common Spirit - [facility] Ischemic Ischemic Problem Commo n heart heart Spirit disease disease - [facility] Erectile Erectile Problem Commo n dysfunctio dysfunctio Sp dhaval n n - [facility] Elevated Elevated Problem Commo n PSA PSA [facility] [id number] ED Problem Common (erectile Spirit dysfunctio - [facility] n) of [facility] [id number] Atheroscle Problem Co mmon rotic [facility] heart - CHI disease of [facility] coronary Medical artery Center without angina pectoris [id number] Presence Problem Comm on of Spirit coronary - CHI angioplast [facility] [id number] Hyperlipid Problem Com mon emia, Spirit unspecifie - [facility] d hyperlipid [facility] [id number] Type 2 Problem Common diabetes Spirit mellitus - [facility] with [facility] Obstructiv JOAQUINA Problem Commo n e sleep (obstructi Spiri t apnea ve sleep - CHI syndrome apnea) [facility] [id number] History of Problem Co mmon myocardial Spirit infarction - [facility] Chronic Chronic Problem Common renal kidney Spirit failure disease - [facility] syndrome (CKD) [facility] [id number] Other Problem Common allergic Spirit rhinitis - [facility] [id number] Obesity Problem Commo n (BMI Spirit 35.0-39.[address] [facility] without [facility] [id number] FDC Problem Com mon current Spirit use of - CHI insulin [facility] [id number] Grieving Problem Comm on [facility] [id number] Adjustment Problem Com mon disorder, Spirit unspecifie - CHI d type [facility] [id number] [place], [place] [id number] joint, Spirit knee, - CHI right [facility] [id number] Other tear Problem Co mmon of medial Spirit meniscus - CHI of right St knee as [facility] current Medical injury, Center subsequent encounter [id number] Status Problem Common post Spirit arthroscop - CHI y of knee [facility] 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 [id number] Chronic Problem Common allergic Spirit conjunctiv - CHI itis [facility] Allergies, Adverse Reactions, Alerts Allergy Allergy Status [...] Hospita reaction 00 l s to drug BENAZEPR DRUG Active Unknown-Cmnt Un mikala [place] INGREDI 10-08 ity of 00:00: [place] 00 Medical Branch Benazepr Propensi Active Unknown - Uni vers il ty to See comments 10-08 ity of adverse 00:00: [place] reaction 00 Medical s Branch DAPAGLIF DRUG Active Other-Cmnt Univ ers LOZIN INGREDI 10-08 ity of 00:00: [place] 00 Medical Branch LISINOPR DRUG Active COUGH Univers IL INGREDI 10-08 ity of 00:00: [place] 00 Medical Branch AMLODIPI DRUG Active ITCHING Univers NE-BENAZ 10-08 ity of EPRIL 00:00: [place] 00 Medical Branch Dapaglif Propensi Active Other - See Aches/Pa i Univers lozin ty to comments 10-08 ns ity of adverse 00:00: [place] reaction 00 Medical s Branch Lisinopr Propensi Active Cough 2018-0 Univer s il ty to 2-27 ity of adverse 00:00: [place] reaction 00 Medical s Branch Amlodipi Propensi Active Itching 2017-0 Unive rs ne-Benaz ty to 2 ity of epril adverse 00:00: [place] reaction 00 Medical s Branch amlodipi amlodipi Active Unknown Commo n ne / ne / Spirit benazepr benazepr - CHI il [facility] amlodipi amlodipi Active Unknown Commo n ne ne Spirit - [facility] 0 Drug Active Unknown Common allergy [facility] Family History Family Member Diagnosis Comments Start Date Stop Date Source Natural mother [facility] Natural father Heart disease [facility] Social History Social Habit Start Date Stop Date Quantity Comments Source Gender identity 2021-01-30 Identifies as male M ethodist 00:02:05 gender (finding) Hospital Sexual orientation 2021-01-30 Heterosexual Meth odist 00:02:05 (finding) Hospital History of Tobacco Common Spirit - Use [facility] Exposure to 2022-09-16 2022-09-26 Not sure University of SARS-CoV-2 (event) 00:00:00 10:00:00 [facility] Alcohol intake 2022-06-26 2022-06-26 Ex-drinker [facility] 00:00:00 00:00:00 (finding) Hospital History of Social 2022-06-26 2022-06-[address] function 00:00:00 00:00:00 Hospital Tobacco use and 2022-06-21 2022-06-21 Smokeless tobacco Me thodist exposure 00:00:00 00:00:00 non-user Hospital Sex Assigned At [birth year] [facility] 00:00:00 00:00:00 [facility] Smoking Status Start Date Stop Date Source Never smoked tobacco [facility] Medications Ordered Filled Start Stop Current Ordering Indication Dosage Frequency Signature Comments Components Source Medication Medication Date Date Medication? Clinician (SIG) Name Name EZETIMIBE Yes [id number] 10mg TAKE 1 U nivers 10 mg 3-20 TABLET BY ity of tablet 00:00: MOUTH [place] 00 DAILY Medical Branch EZETIMIBE Yes [id number] 10mg TAKE 1 U nivers 10 mg 3-20 TABLET BY ity of tablet 00:00: MOUTH DAILY Medical Branch EZETIMIBE Yes [id number] 10mg TAKE 1 U nivers 10 mg 3-20 TABLET BY ity of tablet 00:00: MOUTH DAILY Medical Branch blood sugar Yes Check Unive rs diagnostic 3-14 blood ity of (ONETOUCH 00:00: [place] 3[place] VERIO TEST Medical STRIPS) Branch strip blood sugar Yes Check Unive rs diagnostic 3-14 blood ity of (ONETOUCH 00:00: [place] VER[place] TEST Medical STRIPS) Branch strip blood sugar Yes Check Unive rs diagnostic 3-14 blood ity of (ONETOUCH 00:00: [place] VERIO TEST Medical STRIPS) Branch strip blood sugar Yes Check Unive rs diagnostic 3-14 blood ity of (ONETOUCH 00:00: [place] VERIO TEST Medical STRIPS) Branch strip Gentamicin Gentamicin No 240mg Common 80mg 80mg 25 Spirit 00:00: - CHI [facility] Gentamicin Gentamicin No 240mg Common 80mg 80mg 25 Spirit 00:00: - [facility] clonIDINE 2021-08 Yes .3mg QD Take 1 Method i HCl 1-[address] (CATAPRES) 13:26: (0.3 mg Hosp cristobal 0.3 MG 03 total) by l tablet mouth daily. insulin 2021-08 Yes 60U Q.5D Inject 60 Metho di degludec 1-[address] (Tresiba 13:26: under the Hosp cristobal FlexTouch 38 skin 2 l U-100) 100 (two) unit/mL (3 times a mL) day. subcutaneou s pen insulin 2021-08 Yes 10U [id number] Inject 10 Methodi ASPART 1-[id number] (NovoLOG) 13:26: 3D under the Hos abdiaziz 100 unit/mL 38 skin 3 l injection (three) times a day before meals. TAKES NEEDED, SOMETIMES HOLDSIT losartan 2021-08 Yes 100mg QD Take 100 Meth tashi (COZAAR) 1-[address] 100 MG 13:26: mouth Hospita tablet 38 daily. l metoprolol 2021-08 Yes 50mg QD Take 50 mg M ethodi tartrate 1-[address] (LOPRESSOR) 13:26: nightly. Ho spita 50 mg 38 l tablet hydrALAZINE 2021-08 Yes 100mg Q.[id number] Take 100 Methodi (APRESOLINE -12 [id number] mg by s t ) 100 MG 13:26: 3D mouth 3 Hospit a tablet 38 (three) l times a day. clopidogreL 2021-08 Yes 75mg QD Take 75 mg Methodi (PLAVIX) 75 -[address] mg tablet 13:26: daily. Hospit a 38 l amLODIPine 2021-08 Yes 10mg QD Take 10 mg M ethodi (NORVASC) 1-[address] 10 mg 13:26: daily. Hospita tablet 38 l multivit,ca 2021-08 Yes 1{tbl} QD Take 1 Me thodi lc,mins/iro 1-[address] n/folic 13:26: mouth Hospita (multivitam 38 daily. l in,tx-iron- minerals) 27-0.4 mg tablet tablet aspirin 2021-08 Yes 81mg QD Take 81 mg Meth tashi (ECOTRIN) 1-[address] 81 MG 13:26: daily. Hospita enteric 38 l coated tablet montelukast 2021-08 Yes 10mg QD Take 10 mg Methodi (SINGULAIR) -[address] 10 mg 13:26: nightly. Hospita tablet 38 l ezetimibe 2021-08 Yes 10mg QD Take 10 mg Me thodi (ZETIA) 10 1-[address] mg tablet 13:26: daily. Hospit a 38 l hydroCHLORO 2021-08 Yes 12.5mg QD Take 12.5 Methodi thiazide 1-[address] (HYDRODIURI 13:26: mouth Hospi ta L) 12.5 MG 38 daily. l tablet pantoprazol 2021-08 Yes 40mg QD Take 40 mg Methodi e 1-[address] (PROTONIX) 13:26: daily. Hospi ta 40 MG EC 38 l tablet pravastatin 2021-08 Yes 40mg QD Take 40 mg Methodi (PRAVACHOL) 1-[address] 40 mg 13:26: daily. Hospita tablet 38 l ferrous 2021-08 Yes 325mg QD Take 1 Methodi sulfate 325 1-[address] (65 FE) MG 00:00: (325 mg Hosp cristobal EC tablet 00 total) by l mouth daily with breakfast. clonIDINE 2021-08- No .3mg Q7D Place 1 Meth tashi (CATAPRES-T 1-10 11-[address] TS) 0.3 14:41: 00:00 the skin Hospi ta mg/24 hr 56 :00 once a l week. insulin Yes [id number] 50U inject 50 U nivers degludec 7-05 Units ity of (TRESIBA 00:00: [place] FLEXTOUCH 00 skin 2 Medical U-200) 200 (two) Branch unit/mL (3 times mL) InPn daily. E11. insulin Yes [id number] 50U inject 50 U nivers degludec 7-05 Units ity of (TRESIBA 00:00: [place] FLEXTOUCH 00 skin 2 Medical U-200) 200 (two) Branch unit/mL (3 times mL) InPn daily. E11. insulin Yes [id number] 50U inject 50 U nivers degludec 7-05 Units ity of (TRESIBA 00:00: [place] FLEXTOUCH 00 skin 2 Medical U-200) 200 (two) Branch unit/mL (3 times mL) InPn daily. E11. insulin Yes [id number] 50U inject 50 U nivers degludec 7-05 Units ity of (TRESIBA 00:00: [place] FLEXTOUCH 00 skin 2 Medical U-200) 200 (two) Branch unit/mL (3 times mL) InPn daily. E11.65 insulin Yes [id number] 50U inject 50 U nivers degludec 7-05 Units ity of (TRESIBA 00:00: [place] FLEXTOUCH 00 skin 2 Medical U-200) 200 (two) Branch unit/mL (3 times mL) InPn daily. E11.65 insulin Yes [id number] 50U inject 50 U nivers degludec 7-05 Units ity of (TRESIBA 00:00: [place] FLEXTOUCH 00 skin 2 Medical U-200) 200 (two) Branch unit/mL (3 times mL) InPn daily. E11.65 insulin 0 Yes [id number] 50U inject 50 U nivers degludec 7-05 Units ity of (TRESIBA 00:00: [place] FLEXTOUCH 00 skin 2 Medical U-200) 200 (two) Branch unit/mL (3 times mL) InPn daily. E11.65 insulin 0 Yes [id number] 50U inject 50 U nivers degludec 7-05 Units ity of (TRESIBA 00:00: [place] FLEXTOUCH 00 skin 2 Medical U-200) 200 (two) Branch unit/mL (3 times mL) InPn daily. E11.65 insulin 0 Yes [id number] 50U inject 50 U nivers degludec 7-05 Units ity of (TRESIBA 00:00: [place] FLEXTOUCH 00 skin 2 Medical U-200) 200 (two) Branch unit/mL (3 times mL) InPn daily. E11.65 Ketoconazol Ketoconazol 202- No 1{appli BID Ketoconazo e 2 % e 2 % 01-10 cation_ le 2 % 00:00: 00:00 to_affe 00 :00 cted_ar ea} Acetaminoph Acetaminoph 0 No 1{table Acetaminop en-Codeine en-Codeine 5-24 t_as_ne hen-Codein #3 300-30 #3 300-30 00:00: eded} e #3 MG MG 00 300-30 MG Acetaminoph Acetaminoph 2021-0 No 1{table Acetaminop en-Codeine en-Codeine 5-24 t_as_ne hen-Codein #3 300-30 #3 300-30 00:00: eded} e #3 MG MG 00 300-30 MG Acetaminoph Acetaminoph 2021-0 No 1{table Acetaminop en-Codeine en-Codeine 5-24 t_as_ne [...] #3 MG MG 00 300-30 MG ONETOUCH 2022-0 Yes USE THREE Univ ers VERIO TEST 5-23 TIMES ity of STRIPS 00:00: DAILY [place] strip 00 Medical Branch ONETOUCH 2022-0 Yes USE THREE Univ ers VERIO TEST 5-23 TIMES ity of STRIPS 00:00: DAILY [place] strip 00 Medical Branch ONETOUCH 2-0 Yes USE THREE Univ ers VERIO TEST 5-23 TIMES ity of STRIPS 00:00: DAILY [place] strip 00 Medical Branch ONETOUCH 2022-0 Yes USE THREE Univ ers VERIO TEST 5-23 TIMES ity of STRIPS 00:00: DAILY [place] strip 00 Medical Branch ONETOUCH 2022-0 Yes USE THREE Univ ers VERIO TEST 5-23 TIMES ity of STRIPS 00:00: DAILY [place] strip 00 Medical Branch ONETOUCH 2-0 2023- No USE THREE Uni vers VERIO TEST 5-23 03-14 TIMES ity of STRIPS 00:00: 00:00 DAILY [place] strip 00 :00 Medical Branch ezetimibe 2-0 Yes [id number] 10mg Take 1 U nivers 10 mg 2-01 tablet by ity of tablet 00:00: mouth [place] 00 daily. Medical Branch pravastatin 2021-0 Yes [id number] 40mg Take 1 Univers 40 mg 2-01 tablet by ity of tablet 00:00: mouth [place] 00 every Medical evening. Branch ezetimibe 2021-0 Yes [id number] 10mg Take 1 U nivers 10 mg 2-01 tablet by ity of tablet 00:00: mouth [place] 00 daily. Medical Branch pravastatin 2-0 Yes [id number] 40mg Take 1 Univers 40 mg 2-01 tablet by ity of tablet 00:00: mouth [place] 00 every Medical evening. Branch ezetimibe 2-0 Yes [id number] 10mg Take 1 U nivers 10 mg 2-01 tablet by ity of tablet 00:00: mouth [place] 00 daily. Medical Branch pravastatin 2-0 Yes [id number] 40mg Take 1 Univers 40 mg 2-01 tablet by ity of tablet 00:00: mouth [place] 00 every Medical evening. Branch ezetimibe 2-0 Yes [id number] 10mg Take 1 U nivers 10 mg 2-01 tablet by ity of tablet 00:00: mouth [place] 00 daily. Medical Branch pravastatin 2-0 Yes [id number] 40mg Take 1 Univers 40 mg 2-01 tablet by ity of tablet 00:00: mouth [place] 00 every Medical evening. Branch ezetimibe 2021-0 Yes [id number] 10mg Take 1 U nivers 10 mg 2-01 tablet by ity of tablet 00:00: mouth [place] 00 daily. Medical Branch pravastatin 2-0 Yes [id number] 40mg Take 1 Univers 40 mg 2-01 tablet by ity of tablet 00:00: mouth [place] 00 every Medical evening. Branch ezetimibe 2021-0 Yes [id number] 10mg Take 1 U nivers 10 mg 2-01 tablet by ity of tablet 00:00: mouth [place] 00 daily. Medical Branch pravastatin 2021-0 Yes [id number] 40mg Take 1 Univers 40 mg 2-01 tablet by ity of tablet 00:00: mouth [place] 00 every Medical evening. Branch pravastatin 2021-0 Yes [id number] 40mg Take 1 Univers 40 mg 2-01 tablet by ity of tablet 00:00: mouth [place] 00 every Medical evening. Branch pravastatin 2021-0 Yes [id number] 40mg Take 1 Univers 40 mg 2-01 tablet by ity of tablet 00:00: mouth [place] 00 every Medical evening. Branch pravastatin 2021-0 Yes [id number] 40mg Take 1 Univers 40 mg 2-01 tablet by ity of tablet 00:00: mouth [place] 00 every Medical evening. Branch ezetimibe 2021-0 2023- No [id number] 10mg Take 1 Univers 10 mg 2-01 03-20 tablet by ity of tablet 00:00: 00:00 mouth [place] 00 :00 daily. Medical Branch permethrin 2021-0 Yes APPLY Univer s 5 % cream 1-14 TOPICALLY ity o f 00:00: TO THE AFFECTED Medical AREA EVERY Branch DAY FOR 2 WEEKS ivermectin 0 Yes TAKE 8 Unive rs 3 mg tablet 1-14 TABLETS BY it y of 00:00: MOUTH FOR 1 DOSE AND Medical REPEAT Branch SECOND DOSE IN 2 WEEKS FOR SCABIES permethrin 0 Yes APPLY Univer s 5 % cream 1-14 TOPICALLY ity o f 00:00: TO THE AFFECTED Medical AREA EVERY Branch DAY FOR 2 WEEKS ivermectin 0 Yes TAKE 8 Unive rs 3 mg tablet 1-14 TABLETS BY it y of 00:00: MOUTH FOR 1 DOSE AND Medical REPEAT Branch SECOND DOSE IN 2 WEEKS FOR SCABIES permethrin 2-0 Yes APPLY Univer s 5 % cream 1-14 TOPICALLY ity o f 00:00: TO THE AFFECTED Medical AREA EVERY Branch DAY FOR 2 WEEKS ivermectin 2021-0 Yes TAKE 8 Unive rs 3 mg tablet 1-14 TABLETS BY it y of 00:00: MOUTH FOR 1 DOSE AND Medical REPEAT Branch SECOND DOSE IN 2 WEEKS FOR SCABIES permethrin 2021-0 Yes APPLY Univer s 5 % cream 1-14 TOPICALLY ity o f 00:00: TO THE AFFECTED Medical AREA EVERY Branch DAY FOR 2 WEEKS ivermectin 2021-0 Yes TAKE 8 Unive rs 3 mg tablet 1-14 TABLETS BY it y of 00:00: MOUTH FOR 1 DOSE AND Medical REPEAT Branch SECOND DOSE IN 2 WEEKS FOR SCABIES permethrin 2021-0 Yes APPLY Univer s 5 % cream 1-14 TOPICALLY ity o f 00:00: TO THE AFFECTED Medical AREA EVERY Branch DAY FOR 2 WEEKS ivermectin 2021-0 Yes TAKE 8 Unive rs 3 mg tablet 1-14 TABLETS BY it y of 00:00: MOUTH FOR 1 DOSE AND Medical REPEAT Branch SECOND DOSE IN 2 WEEKS FOR SCABIES permethrin 2021-0 Yes APPLY Univer s 5 % cream 1-14 TOPICALLY ity o f 00:00: TO THE AFFECTED Medical AREA EVERY Branch DAY FOR 2 WEEKS ivermectin 2021-0 Yes TAKE 8 Unive rs 3 mg tablet 1-14 TABLETS BY it y of 00:00: MOUTH FOR 1 DOSE AND Medical REPEAT Branch SECOND DOSE IN 2 WEEKS FOR SCABIES permethrin 2-0 Yes APPLY Univer s 5 % cream 1-14 TOPICALLY ity o f 00:00: TO THE AFFECTED Medical AREA EVERY Branch DAY FOR 2 WEEKS ivermectin 2021-0 Yes TAKE 8 Unive rs 3 mg tablet 1-14 TABLETS BY it y of 00:00: MOUTH FOR 1 DOSE AND Medical REPEAT Branch SECOND DOSE IN 2 WEEKS FOR SCABIES permethrin 2-0 Yes APPLY Univer s 5 % cream 1-14 TOPICALLY ity o f 00:00: TO THE AFFECTED Medical AREA EVERY Branch DAY FOR 2 WEEKS ivermectin 2021-0 Yes TAKE 8 Unive rs 3 mg tablet 1-14 TABLETS BY it y of 00:00: MOUTH FOR 00 1 DOSE AND Medical REPEAT Branch SECOND DOSE IN 2 WEEKS FOR SCABIES permethrin 2021-0 Yes APPLY Univer s 5 % cream 1-14 TOPICALLY ity o f 00:00: TO THE AFFECTED Medical AREA EVERY Branch DAY FOR 2 WEEKS ivermectin 2021-0 Yes TAKE 8 Unive rs 3 mg tablet 1-14 TABLETS BY it y of 00:00: MOUTH FOR 1 DOSE AND Medical REPEAT Branch SECOND DOSE IN 2 WEEKS FOR SCABIES pantoprazol 2-0 Yes 40mg Take 40 mg Univers e 40 mg EC 1-03 by mouth 2 ity of tablet 00:00: (two) 00 times Medical daily. Branch pantoprazol 2022-0 Yes 40mg Take 40 mg Univers e 40 mg EC 1-03 by mouth 2 ity of tablet 00:00: (two) [place] 00 times Medical daily. Branch pantoprazol 2022-0 Yes 40mg Take 40 mg Univers e 40 mg EC 1-03 by mouth 2 ity of tablet 00:00: (two) 00 times Medical daily. Branch pantoprazol 2-0 Yes 40mg Take 40 mg Univers e 40 mg EC 1-03 by mouth 2 ity of tablet 00:00: (two) 00 times Medical daily. Branch pantoprazol 2022-0 Yes 40mg Take 40 mg Univers e 40 mg EC 1-03 by mouth 2 ity of tablet 00:00: (two) 00 times Medical daily. Branch pantoprazol 2022-0 Yes 40mg Take 40 mg Univers e 40 mg EC 1-03 by mouth 2 ity of tablet 00:00: (two) [place] 00 times Medical daily. Branch pantoprazol 2022-0 Yes 40mg Take 40 mg Univers e 40 mg EC 1-03 by mouth 2 ity of tablet 00:00: (two) [place] 00 times Medical daily. Branch pantoprazol 2022-0 Yes 40mg Take 40 mg Univers e 40 mg EC 1-03 by mouth 2 ity of tablet 00:00: (two) [place] 00 times Medical daily. Branch pantoprazol 2022-0 Yes 40mg Take 40 mg Univers e 40 mg EC 1-03 by mouth 2 ity of tablet 00:00: (two) [place] 00 times Medical daily. Branch TRESIBA 2020-08- No [id number] INJECT 60 Univers FLEXTOUCH 2-30 07-05 UNITS ity of U-200 200 00:00: 00:00 [place]ER [place] unit/mL (3 00 :00 SKIN TWICE Med ical mL) InPn DAILY Branch EPINEPHrine 2020-08 Yes ADMINISTER Univers 0.3 mg/0.3 1-28 0.3 ML IN ity of mL 00:00: THE MUSCLE [place] injection TIME [facility] EPINEPHrine 2020-08 Yes ADMINISTER Univers 0.3 mg/0.3 1-28 0.3 ML IN ity of mL 00:00: THE MUSCLE [place] injection TIME [facility] EPINEPHrine 2020-08 Yes ADMINISTER Univers 0.3 mg/0.3 1-28 0.3 ML IN ity of mL 00:00: THE MUSCLE [place] injection TIME [facility] EPINEPHrine 2020-08 Yes ADMINISTER Univers 0.3 mg/0.3 1-28 0.3 ML IN ity of mL 00:00: THE MUSCLE [place] injection TIME [facility] EPINEPHrine 2020-08 Yes ADMINISTER Univers 0.3 mg/0.3 1-28 0.3 ML IN ity of mL 00:00: THE MUSCLE [place] injection TIME [facility] EPINEPHrine 2020-08 Yes ADMINISTER Univers 0.3 mg/0.3 1-28 0.3 ML IN ity of mL 00:00: THE MUSCLE [place] injection TIME [facility] EPINEPHrine 2020-08 Yes ADMINISTER Univers 0.3 mg/0.3 1-28 0.3 ML IN ity of mL 00:00: THE MUSCLE [place] injection TIME [facility] EPINEPHrine 2020-08 Yes ADMINISTER Univers 0.3 mg/0.3 1-28 0.3 ML IN ity of mL 00:00: THE MUSCLE [place] injection TIME [facility] EPINEPHrine 2020-08 Yes ADMINISTER Univers 0.3 mg/0.3 1-28 0.3 ML IN ity of mL 00:00: THE MUSCLE [place] injection TIME [facility] Branch Fluocinolon 2020-08 Yes Univer s e Acetonide 1-27 ity of Oil 0.01 % 00:00: [place] otic drops 00 [facility] Branch Fluocinolon 2020-08 Yes Univer s e Acetonide 1-27 ity of Oil 0.01 % 00:00: [place] otic drops 00 Medical Branch Fluocinolon 2020-08 Yes Univer s e Acetonide 1-27 ity of Oil 0.01 % 00:00: [place] otic drops 00 Medical Branch Fluocinolon 2020-08 Yes Univer s e Acetonide 1-27 ity of Oil 0.01 % 00:00: [place] otic drops 00 Medical Branch Fluocinolon 2020-08 Yes Univer s e Acetonide 1-27 ity of Oil 0.01 % 00:00: [place] otic drops 00 Medical Branch Fluocinolon 2020-08 Yes Univer s e Acetonide 1-27 ity of Oil 0.01 % 00:00: [place] otic drops 00 Medical Branch Fluocinolon 2020-08 Yes Univer s e Acetonide 1-27 ity of Oil 0.01 % 00:00: [place] otic drops 00 Medical Branch Fluocinolon 2020-08 Yes Univer s e Acetonide 1-27 ity of Oil 0.01 % 00:00: [place] otic drops 00 Medical Branch Fluocinolon 2020-08 Yes Univer s e Acetonide 1-27 ity of Oil 0.01 % 00:00: [place] otic drops 00 Medical Branch azelastine 2020-08 Yes USE 2 Univer s 137 mcg 1-26 SPRAYS IN ity of (0.1 %) 00:00: EACH [place] nasal spray 00 NOSTRIL Medic al EVERY Branch MORNING AND IN THE EVENING FEROSUL 325 2020-08 Yes 325mg Take 325 U nivers mg (65 mg 1-26 mg by ity of iron) 00:00: mouth [place] tablet 00 daily. Medical Branch azelastine 2020-08 Yes USE 2 Univer s 137 mcg 1-26 SPRAYS IN ity of (0.1 %) 00:00: EACH [place] nasal spray 00 NOSTRIL Medic al EVERY Branch MORNING AND IN THE EVENING FEROSUL 325 2020-08 Yes 325mg Take 325 U nivers mg (65 mg 1-26 mg by ity of iron) 00:00: mouth [place] tablet 00 daily. Medical Branch azelastine 2020-08 Yes USE 2 Univer s 137 mcg 1-26 SPRAYS IN ity of (0.1 %) 00:00: EACH [place] nasal spray 00 NOSTRIL Medic al EVERY Branch MORNING AND IN THE EVENING FEROSUL 325 2020-08 Yes 325mg Take 325 U nivers mg (65 mg 1-26 mg by ity of iron) 00:00: mouth [place] tablet 00 daily. Medical Branch azelastine 2020-08 Yes USE 2 Univer s 137 mcg 1-26 SPRAYS IN ity of (0.1 %) 00:00: EACH [place] nasal spray 00 NOSTRIL Medic al EVERY Branch MORNING AND IN THE EVENING FEROSUL 325 2020-08 Yes 325mg Take 325 U nivers mg (65 mg 1-26 mg by ity of iron) 00:00: mouth [place] tablet 00 daily. Medical Branch azelastine 2020-08 Yes USE 2 Univer s 137 mcg 1-26 SPRAYS IN ity of (0.1 %) 00:00: EACH [place] nasal spray 00 NOSTRIL Medic al EVERY Branch MORNING AND IN THE EVENING FEROSUL 325 2020-08 Yes 325mg Take 325 U nivers mg (65 mg 1-26 mg by ity of iron) 00:00: mouth [place] tablet 00 daily. Medical Branch azelastine 2020-08 Yes USE 2 Univer s 137 mcg 1-26 SPRAYS IN ity of (0.1 %) 00:00: EACH [place] nasal spray 00 NOSTRIL Medic al EVERY Branch MORNING AND IN THE EVENING FEROSUL 325 2020-08 Yes 325mg Take 325 U nivers mg (65 mg 1-26 mg by ity of iron) 00:00: mouth [place] tablet 00 daily. Medical Branch azelastine 2020-08 Yes USE 2 Univer s 137 mcg 1-26 SPRAYS IN ity of (0.1 %) 00:00: EACH [place] nasal spray 00 NOSTRIL Medic al EVERY Branch MORNING AND IN THE EVENING FEROSUL 325 2020-08 Yes 325mg Take 325 U nivers mg (65 mg 1-26 mg by ity of iron) 00:00: mouth [place] tablet 00 daily. Medical Branch azelastine 2020-08 Yes USE 2 Univer s 137 mcg 1-26 SPRAYS IN ity of (0.1 %) 00:00: EACH [place] nasal spray 00 NOSTRIL Medic al EVERY Branch MORNING AND IN THE EVENING FEROSUL 325 2020-08 Yes 325mg Take 325 U nivers mg (65 mg 1-26 mg by ity of iron) 00:00: mouth [place] tablet 00 daily. Medical Branch azelastine 2020-08 Yes USE 2 Univer s 137 mcg 1-26 SPRAYS IN ity of (0.1 %) 00:00: EACH [place] nasal spray 00 NOSTRIL Medic al EVERY Branch MORNING AND IN THE EVENING FEROSUL 325 2020-08 Yes 325mg Take 325 U nivers mg (65 mg 1-26 mg by ity of iron) 00:00: mouth [place] tablet 00 daily. Medical Branch ONETOUCH 2020-08 Yes USE THREE Univ ers DELICA PLUS 0-06 TIMES ity of LANCET 33 00:00: DAILY [place] gauge Misc 00 Medical Branch ONETOUCH 2020-08 Yes USE THREE Univ ers DELICA PLUS 0-06 TIMES ity of LANCET 33 00:00: DAILY [place] gauge Misc 00 Medical Branch ONETOUCH 2020-08 Yes USE THREE Univ ers DELICA PLUS 0-06 TIMES ity of LANCET 33 00:00: DAILY [place] gauge Misc 00 Medical Branch ONETOUCH 2020-08 Yes USE THREE Univ ers DELICA PLUS 0-06 TIMES ity of LANCET 33 00:00: DAILY [place] gauge Misc 00 Medical Branch ONETOUCH 2020-08 Yes USE THREE Univ ers DELICA PLUS 0-06 TIMES ity of LANCET 33 00:00: DAILY [place] gauge Misc 00 Medical Branch ONETOUCH 2020-08 Yes USE THREE Univ ers DELICA PLUS 0-06 TIMES ity of LANCET 33 00:00: DAILY [place] gauge Misc 00 Medical Branch ONETOUCH 2020-08 Yes USE THREE Univ ers DELICA PLUS 0-06 TIMES ity of LANCET 33 00:00: DAILY [place] gauge Misc 00 Medical Branch ONETOUCH 2020-08 Yes USE THREE Univ ers DELICA PLUS 0-06 TIMES ity of LANCET 33 00:00: DAILY [place] gauge Misc 00 Medical Branch ONETOUCH 2020-08 Yes USE THREE [...] mL) subcutaneou s pen insulin Yes 10U [id number] Inject 10 [facility] ASPART 6-[id number] (NovoLOG) 17:31: 3D under the [...] mg 39 l tablet hydrALAZINE Yes 100mg [id number] Take 100 [facility] (APRESOLINE 6-21 [id number] mg by s t ) 100 MG [...] in,tx-iron- minerals) 27-0.4 mg tablet tablet aspirin 2020-0 Yes 81mg QD Take 81 mg Meth tashi (ECOTRIN) 6-[address] 81 MG 17:31: [facility]. [facility] l coated tablet montelukast 2020-0 Yes 10mg QD Take 10 mg [facility] (SINGULAIR) 6-[address] 10 mg 17:31: nightly. [facility] tablet 39 l ezetimibe 2020-0 Yes 10mg QD Take 10 mg [facility] (ZETIA) 10 6-[address] mg tablet 17:31: daily. [facility] a 39 l hydroCHLORO 2020-0 Yes 12.5mg QD Take 12.5 [facility] thiazide [...] 3-25 Dx E11.59 ity of (ONETOUCH 00:00: [place] VERIO FLEX 00 Medical METER) Misc Branch Blood-Gluco 2020-0 Yes Use Tid. Un mikala se Meter 3-25 Dx E11.59 ity of (ONETOUCH 00:00: [place] VERIO FLEX 00 Medical METER) Misc Branch Blood-Gluco 2020-0 Yes Use Tid. Un mikala se Meter 3-25 Dx E11.59 ity of (ONETOUCH 00:00: [place] VERIO FLEX 00 Medical METER) Misc Branch Blood-Gluco 2020-0 Yes Use Tid. Un mikala se Meter 3-25 Dx E11.59 ity of (ONETOUCH 00:00: [place] VERIO FLEX 00 Medical METER) Misc Branch Blood-Gluco 2020-0 Yes Use Tid. Un mikala se Meter 3-25 Dx E11.59 ity of (ONETOUCH 00:00: [place] VERIO FLEX 00 Medical METER) Misc Branch Blood-Gluco 2021-0 Yes Use Tid. Un mikala se Meter 3-25 Dx E11.59 ity of (ONETOUCH 00:00: [place] VERIO FLEX 00 Medical METER) Misc Branch Blood-Gluco 2021-0 Yes Use Tid. Un mikala se Meter 3-25 Dx E11.59 ity of (ONETOUCH 00:00: [place] VERIO FLEX 00 Medical METER) Misc Branch Blood-Gluco 2021-0 Yes Use Tid. Un mikala se Meter 3-25 Dx E11.59 ity of (ONETOUCH 00:00: [place] VERIO FLEX 00 Medical METER) Misc Branch Blood-Gluco 2021-0 Yes Use Tid. Un mikala se Meter 3-25 Dx E11.59 ity of (ONETOUCH 00:00: [place] VERIO FLEX 00 Medical METER) Misc Branch Gentamicin Gentamicin 2021-0 No 80mg C ommon 80mg 80mg 3-18 [facility] 00:00: - [facility] 00 [facility] Gentamicin Gentamicin 2021-0 No 80mg C ommon 80mg 80mg 3-18 [facility] 00:00: - [facility] 00 [facility] Gentamicin Gentamicin 2021-0 No 80mg C ommon 80mg 80mg 3-18 [facility] 00:00: - [facility] 00 [facility] Gentamicin Gentamicin 2021-0 No 80mg C ommon 80mg 80mg 3-18 [facility] 00:00: - [facility] 00 [facility] Gentamicin Gentamicin 2021-0 No 80mg C ommon 80mg 80mg 3-18 [facility] 00:00: - [facility] 00 [facility] Gentamicin Gentamicin 2021-0 No 80mg C ommon 80mg 80mg 3-18 [facility] 00:00: - [facility] 00 [facility] Gentamicin Gentamicin 2021-0 No 80mg C ommon 80mg 80mg 3-18 [facility] 00:00: - [facility] 00 [facility] Gentamicin Gentamicin 2021-0 No 80mg C ommon 80mg 80mg 3-18 [facility] 00:00: - [facility] 00 [facility] Gentamicin Gentamicin 2021-0 No 80mg C ommon 80mg 80mg 3-18 [facility] 00:00: - [facility] 00 [facility] Gentamicin Gentamicin 2021-0 No 80mg C ommon 80mg 80mg 3-18 [facility] 00:00: - [facility] 00 [facility] Gentamicin Gentamicin 2021-0 No 80mg C ommon 80mg 80mg 318 [facility] 00:00: - [facility] 00 [facility] Gentamicin Gentamicin 2021-0 No 80mg C ommon 80mg 80mg 318 [facility] 00:00: - [facility] 00 [facility] Gentamicin Gentamicin 2021-0 No 80mg C ommon 80mg 80mg 318 [facility] 00:00: - [facility] 00 [facility] Gentamicin Gentamicin 1-0 No 80mg C ommon 80mg 80mg 318 [facility] 00:00: - [facility] Gentamicin Gentamicin 1-0 No 80mg C ommon 80mg 80mg 318 [facility] 00:00: - [facility] 00 [facility] Gentamicin Gentamicin 1-0 No 80mg C ommon 80mg 80mg 318 [facility] 00:00: - [facility] Gentamicin Gentamicin 1-0 No 80mg C ommon 80mg 80mg 318 [facility] 00:00: - [facility] Gentamicin Gentamicin 1-0 No 80mg C ommon 80mg 80mg 318 [facility] 00:00: - [facility] Gentamicin Gentamicin 1-0 No 80mg C ommon 80mg 80mg 318 [facility] 00:00: - [facility] 00 [facility] Gentamicin Gentamicin 1-0 No 80mg C ommon 80mg 80mg 318 [facility] 00:00: - [facility] Gentamicin Gentamicin 2021-0 No 80mg C ommon 80mg 80mg 318 [facility] 00:00: - [facility] 00 [facility] Gentamicin Gentamicin 2021-0 No 80mg C ommon 80mg 80mg 3-18 [facility] 00:00: - [facility] Gentamicin Gentamicin 2021-0 No 80mg C ommon 80mg 80mg 3-18 [facility] 00:00: - [facility] 00 [facility] Gentamicin Gentamicin 2021-0 No 80mg C ommon 80mg 80mg 3-18 [facility] 00:00: - [facility] Gentamicin Gentamicin 2021-0 No 80mg C ommon 80mg 80mg 3-18 [facility] 00:00: - [facility] 00 [facility] Gentamicin Gentamicin 2021-0 No 80mg C ommon 80mg 80mg 3-18 [facility] 00:00: - [facility] 00 [facility] Gentamicin Gentamicin 2021-0 No 80mg C ommon 80mg 80mg 3-18 [facility] 00:00: - [facility] 00 [facility] Gentamicin Gentamicin 2021-0 No 80mg C ommon 80mg 80mg 3-18 [facility] 00:00: - [facility] 00 [facility] Gentamicin Gentamicin 2021-0 No 80mg C ommon 80mg 80mg 3-18 [facility] 00:00: - [facility] 00 [facility] Gentamicin Gentamicin 2021-0 No 80mg C ommon 80mg 80mg 3-18 [facility] 00:00: - [facility] 00 [facility] Gentamicin Gentamicin 2021-0 No 80mg C ommon 80mg 80mg 3-18 [facility] 00:00: - [facility] insulin 2020- Yes [id number] 5U inject Univ ers aspart 2-08 5-10 Units ity of U-100 00:00: under the [place] (NOVOLOG 00 skin 3 Medical FLEXPEN (three) Branch U-100 times INSULIN) daily 100 unit/mL before (3 mL) meals. injection insulin 2019-08 Yes [id number] 5U inject Univ ers aspart 2-08 5-10 Units ity of U-100 00:00: under the [place] (NOVOLOG 00 skin 3 Medical FLEXPEN (three) Branch U-100 times INSULIN) daily 100 unit/mL before (3 mL) meals. injection insulin 2019-08 Yes [id number] 5U inject Univ ers aspart 2-08 5-10 Units ity of U-100 00:00: under the [place] (NOVOLOG 00 skin 3 Medical FLEXPEN (three) Branch U-100 times INSULIN) daily 100 unit/mL before (3 mL) meals. injection insulin 2019-08 Yes [id number] 5U inject Univ ers aspart 2-08 5-10 Units ity of U-100 00:00: under the [place] (NOVOLOG 00 skin 3 Medical FLEXPEN (three) Branch U-100 times INSULIN) daily 100 unit/mL before (3 mL) meals. injection insulin 2019-08 Yes [id number] 5U inject Univ ers aspart 2-08 5-10 Units ity of U-100 00:00: under the [place] (NOVOLOG 00 skin 3 Medical FLEXPEN (three) Branch U-100 times INSULIN) daily 100 unit/mL before (3 mL) meals. injection insulin 2019-08 Yes [id number] 5U inject Univ ers aspart 2-08 5-10 Units ity of U-100 00:00: under the [place] (NOVOLOG 00 skin 3 Medical FLEXPEN (three) Branch U-100 times INSULIN) daily 100 unit/mL before (3 mL) meals. injection insulin 2019-08 Yes [id number] 5U inject Univ ers aspart 2-08 5-10 Units ity of U-100 00:00: under the [place] (NOVOLOG 00 skin 3 Medical FLEXPEN (three) Branch U-100 times INSULIN) daily 100 unit/mL before (3 mL) meals. injection insulin 2019-08 Yes [id number] 5U inject Univ ers aspart 2-08 5-10 Units ity of U-100 00:00: under the [place] (NOVOLOG 00 skin 3 Medical FLEXPEN (three) Branch U-100 times INSULIN) daily 100 unit/mL before (3 mL) meals. injection insulin 2019-08 Yes [id number] 5U inject Univ ers aspart 2-08 5-10 Units ity of U-100 00:00: under the [place] (NOVOLOG 00 skin 3 Medical FLEXPEN (three) Branch U-100 times INSULIN) daily 100 unit/mL before (3 mL) meals. injection Albuterol Albuterol Yes Radha 2 puffs as Common Sulfate HFA Sulfate HFA 1-06 [place] needed for [facility] 00:00: wheezing - [facility] 00 [facility] Clotrimazol Clotrimazol 2018-08 2020- No Radha 1 Common e-Betametha e-Betametha 1-04 07-05 [place] applicatio Spirit sone sone 00:00: 00:00 n to - [facility] 00 :00 affected [facility] Insulin 2018-08 Yes [id number] Use as Univ ers [place], 0-08 directed 5 ity o f Disposable, 00:00: times a [place] as (PEN 00 day E11.9 Medical NEEDLE) 32 Branch gauge x 5/32" Ndle Insulin 2018-08 Yes [id number] Use as [facility] [place], 0-08 directed 5 ity o f Disposable, 00:00: times a [place] as (PEN 00 day E11.9 Medical NEEDLE) 32 Branch gauge x 5/32" [place]dle Insulin 2019- Yes [id number] Use as [facility] [place], 0-08 directed 5 ity o f Disposable, 00:00: times a [place] as (PEN day E11.9 Medical NEEDLE) 32 Branch gauge x 5/32" Ndle Insulin 2019- Yes [id number] Use as [facility] [place], 0-08 directed 5 ity o f Disposable, 00:00: times a [place] as (PEN day E11.9 Medical NEEDLE) 32 Branch gauge x 5/32" Ndle Insulin 2018- Yes [id number] Use as [facility] [place], 0-08 directed 5 ity o f Disposable, 00:00: times a [place] as (PEN day E11.9 Medical NEEDLE) 32 Branch gauge x 5/32" Ndle Insulin 2018-08 Yes [id number] Use as [facility] [place], 0-08 directed 5 ity o f Disposable, 00:00: times a [place] as (PEN day E11.9 Medical NEEDLE) 32 Branch gauge x 5/32" Ndle Insulin 2018-08 Yes [id number] Use as [facility] [place], 0-08 directed 5 ity o f Disposable, 00:00: times a [place] as (PEN day E11.9 Medical NEEDLE) 32 Branch gauge x 5/32" Ndle Insulin 2018- Yes [id number] Use as [facility] [place], 0-08 directed 5 ity o f Disposable, 00:00: times a [place] as (PEN day E11.9 Medical NEEDLE) 32 Branch gauge x 5/32" Ndle Insulin 2018-08 Yes [id number] Use as [facility] [place], 0-08 directed 5 ity o f Disposable, 00:00: times a [place] as (PEN day E11.9 Medical NEEDLE) 32 Branch gauge x 5/32" Ndle Meclizine Meclizine 2017-08 Yes Radha 1 tablet Common HCl HCl 0-13 [place] as needed Spiri t 00:00: for - [facility] 00 dizziness [facility] metoprolol Yes 25mg Take 25 mg U nivers succinate 9-12 by mouth ity of XL 25 mg 24 10:29: [place] 37 [facility] losartan Yes 100mg Take 100 Univ ers 100 mg 9-12 mg by ity of tablet 10:29: mouth [place] 37 daily. Medical Branch cloniDINE 2018-0 Yes .3mg Take 0.3 Univ ers 0.3 mg 9-12 mg by ity of tablet 10:29: mouth once [place] 37 now. Medical Branch clopidogrel 2018-0 Yes 75mg Take 75 mg Univers 75 mg 9-12 by mouth ity of tablet 10:29: daily. [place] [address] Medical Branch hydralAZINE 2018-0 Yes 100mg Take 100 U nivers 100 mg 9-12 mg by ity of tablet 10:29: mouth 2 [place] [address] (two) Medical times Branch daily. metoprolol 2018-0 Yes 25mg Take 25 mg U nivers succinate 9-12 by mouth ity of XL 25 mg 24 10:29: daily. [place] tablet 37 [facility] losartan 2017-0 Yes 100mg Take 100 Univ ers 100 mg 9-12 mg by ity of tablet 10:29: mouth [place] 37 daily. Medical Branch cloniDINE 2017-0 Yes .3mg Take 0.3 Univ ers 0.3 mg 9-12 mg by ity of tablet 10:29: mouth once [place] 37 now. Medical Branch clopidogrel 2017-0 Yes 75mg Take 75 mg Univers 75 mg 9-12 by mouth ity of tablet 10:29: daily. [place] [address] Medical Branch hydralAZINE 2017-0 Yes 100mg Take 100 U nivers 100 mg 9-12 mg by ity of tablet 10:29: mouth 2 [place] [address] (two) Medical times Branch daily. metoprolol 2018-0 Yes 25mg Take 25 mg U nivers succinate 9-12 by mouth ity of XL 25 mg 24 10:29: daily. [place] tablet 37 [facility] losartan 2017-0 Yes 100mg Take 100 Univ ers 100 mg 9-12 mg by ity of tablet 10:29: mouth [place] 37 daily. Medical Branch cloniDINE 2018-0 Yes .3mg Take 0.3 Univ ers 0.3 mg 9-12 mg by ity of tablet 10:29: mouth once [place] 37 now. Medical Branch clopidogrel 2018-0 Yes 75mg Take 75 mg Univers 75 mg 9-12 by mouth ity of tablet 10:29: daily. [place] [address] Medical Branch hydralAZINE 2017-0 Yes 100mg Take 100 U nivers 100 mg 9-12 mg by ity of tablet 10:29: mouth 2 [place] [address] (two) Medical times Branch daily. metoprolol 2018-0 Yes 25mg Take 25 mg U nivers succinate 9-12 by mouth ity of XL 25 mg 24 10:29: daily. [place] tablet 37 [facility] losartan 2018-0 Yes 100mg Take 100 Univ ers 100 mg 9-12 mg by ity of tablet 10:29: mouth [place] 37 daily. Medical Branch cloniDINE 2018-0 Yes .3mg Take 0.3 Univ ers 0.3 mg 9-12 mg by ity of tablet 10:29: mouth once [place] 37 now. Medical Branch clopidogrel 20180 Yes 75mg Take 75 mg Univers 75 mg 9-12 by mouth ity of tablet 10:29: daily. [place] [address] Medical Branch hydralAZINE 0 Yes 100mg Take 100 U nivers 100 mg 9-12 mg by ity of tablet 10:29: mouth 2 [place] [address] (two) Medical times Branch daily. metoprolol 2017-0 Yes 25mg Take 25 mg U nivers succinate 9-12 by mouth ity of XL 25 mg 24 10:29: daily. [place] tablet 37 [facility] losartan 0 Yes 100mg Take 100 Univ ers 100 mg 9-12 mg by ity of tablet 10:29: mouth [place] 37 daily. Medical Branch cloniDINE 2017-0 Yes .3mg Take 0.3 Univ ers 0.3 mg 9-12 mg by ity of tablet 10:29: mouth once [place] 37 now. Medical Branch clopidogrel 2017-0 Yes 75mg Take 75 mg Univers 75 mg 9-12 by mouth ity of tablet 10:29: daily. [place] [address] Medical Branch hydralAZINE 2017-0 Yes 100mg Take 100 U nivers 100 mg 9-12 mg by ity of tablet 10:29: mouth 2 [place] [address] (two) Medical times Branch daily. metoprolol 2018-0 Yes 25mg Take 25 mg U nivers succinate 9-12 by mouth ity of XL 25 mg 24 10:29: daily. [place] tablet 37 [facility] losartan 2017-0 Yes 100mg Take 100 Univ ers 100 mg 9-12 mg by ity of tablet 10:29: mouth [place] 37 daily. Medical Branch cloniDINE 2017-0 Yes .3mg Take 0.3 Univ ers 0.3 mg 9-12 mg by ity of tablet 10:29: mouth once [place] 37 now. Medical Branch clopidogrel 2017-0 Yes 75mg Take 75 mg Univers 75 mg 9-12 by mouth ity of tablet 10:29: daily. [place] [address] Medical Branch hydralAZINE 2018-0 Yes 100mg Take 100 U nivers 100 mg 9-12 mg by ity of tablet 10:29: mouth 2 [place] [address] (two) Medical times Branch daily. metoprolol 2018-0 Yes 25mg Take 25 mg U nivers succinate 9-12 by mouth ity of XL 25 mg 24 10:29: daily. [place] hr tablet [facility] losartan 2017-0 Yes 100mg Take 100 Univ ers 100 mg 9-12 mg by ity of tablet 10:29: mouth [place] 37 daily. Medical Branch cloniDINE 2018-0 Yes .3mg Take 0.3 Univ ers 0.3 mg 9-12 mg by ity of tablet 10:29: mouth once [place] [address] now. Medical Branch clopidogrel 2018-0 Yes 75mg Take 75 mg Univers 75 mg 9-12 by mouth ity of tablet 10:29: daily. [place] [address] Medical Branch hydralAZINE 2017-0 Yes 100mg Take 100 U nivers 100 mg 9-12 mg by ity of tablet 10:29: mouth 2 [place] [address] ([facility] [place]) Medical times Branch daily. metoprolol 2018-0 Yes 25mg Take 25 mg U nivers succinate 9-12 by mouth ity of XL 25 mg 24 10:29: daily. [place] hr tablet [facility] losartan 2017-0 Yes 100mg Take 100 Univ ers 100 mg 9-12 mg by ity of tablet 10:29: mouth [place] 37 daily. Medical Branch cloniDINE 2017-0 Yes .3mg Take 0.3 Univ ers 0.3 mg 9-12 mg by ity of tablet 10:29: mouth once [place] [address] now. Medical Branch clopidogrel 2018-0 Yes 75mg Take 75 mg Univers 75 mg 9-12 by mouth ity of tablet 10:29: daily. [address] Branch hydralAZINE 2017-0 Yes 100mg Take 100 U nivers 100 mg 9-12 mg by ity of tablet 10:29: mouth 2 [place] [address] (two) Medical times [place] daily. metoprolol 2018-0 Yes 25mg Take 25 mg U nivers succinate 9-12 by mouth ity of XL 25 mg 24 10:29: daily. [place] tablet [facility] losartan 2018-0 Yes 100mg Take 100 Univ ers 100 mg 9-12 mg by ity of tablet 10:29: mouth [place] 37 daily. Medical Branch cloniDINE 2018-0 Yes .3mg Take 0.3 Univ ers 0.3 mg 9-12 mg by ity of tablet 10:29: mouth once [place] [address] now. Medical Branch clopidogrel 2018-0 Yes 75mg Take 75 mg Univers 75 mg 9-12 by mouth ity of tablet 10:29: daily. [place] [address] Medical Branch hydralAZINE 2018-0 Yes 100mg Take 100 U nivers 100 mg 9-12 mg by ity of tablet 10:29: mouth 2 [place] [address] (two) Medical times Branch daily. Crestor Crestor 2017-0 Yes Radha 1 tablet Co mmon 4-05 [place] in evening Spir it 00:00: for high - [facility] 00 [facility] Crestor 20 Crestor 20 No QD [...] MG 4-05 MG 00:00: 00 aspirin 81 2018-0 Yes 81mg Take 1 Unive rs mg EC 2-27 tablet by ity of tablet 00:00: mouth [place] 00 daily. Medical Branch aspirin 81 2018-0 Yes 81mg Take 1 Unive rs mg EC 2-27 tablet by ity of tablet 00:00: mouth [place] 00 daily. Medical Branch aspirin 81 2018-0 Yes 81mg Take 1 Unive rs mg EC 2-27 tablet by ity of tablet 00:00: mouth [place] 00 daily. Medical Branch aspirin 81 2018-0 Yes 81mg Take 1 Unive rs mg EC 2-27 tablet by ity of tablet 00:00: mouth [place] 00 daily. Medical Branch aspirin 81 2018-0 Yes 81mg Take 1 Unive rs mg EC 2-27 tablet by ity of tablet 00:00: mouth [place] 00 daily. Medical Branch aspirin 81 2018-0 Yes 81mg Take 1 Unive rs mg EC 2-27 tablet by ity of tablet 00:00: mouth [place] 00 daily. Medical Branch aspirin 81 2018-0 Yes 81mg Take 1 Unive rs mg EC 2-27 tablet by ity of tablet 00:00: mouth [place] 00 daily. Medical Branch aspirin 81 2018-0 Yes 81mg Take 1 Unive rs mg EC 2-27 tablet by ity of tablet 00:00: mouth [place] 00 daily. Medical Branch aspirin 81 2018-0 Yes 81mg Take 1 Unive rs mg EC 2-27 tablet by ity of tablet 00:00: mouth [place] 00 daily. Medical Branch Lotrisone Lotrisone No 1{appli BID Lotrisone 1-0.05 % 1-0.05 % cation_ 1-0.05 % to_affe cted_ar ea} Meclizine Meclizine No BID Meclizine HCl 25 mg HCl 25 mg HCl 25 mg tiZANidine tiZANidine No tiZANidine HCl 2 MG HCl 2 MG HCl 2 MG amLODIPine amLODIPine No 1{table QD amLODIPine Besylate 10 Besylate 10 t} Besylate MG MG 10 MG cloNIDine cloNIDine No cloNIDine HCl 0.3 MG HCl 0.3 MG HCl 0.3 MG Montelukast Montelukast No Montelukas Sodium 10 Sodium 10 t Sodium MG MG 10 MG OneTouch OneTouch No OneTouch Verio - Verio - Verio - Plavix 75 Plavix 75 No 1{table QD Plavix 75 MG MG t} MG Triamcinolo Triamcinolo No 1{appli BID Triamcinol ne ne cation_ one Acetonide Acetonide to_affe Acetonide 0.1 % 0.1 % cted_ar 0.1 % ea} Losartan Losartan No Losartan Potassium Potassium [...] 325 (65 Fe) MG Pravastatin Pravastatin No Pravastati Sodium 40 Sodium 40 n Sodium MG MG 40 MG Metoprolol Metoprolol No Metoprolol Succinate Succinate Succinate ER 50 MG ER 50 MG ER 50 MG Ezetimibe Ezetimibe No 1{table QD Ezetimibe 10 MG 10 MG t} 10 MG NovoLOG NovoLOG No NovoLOG FlexPen 100 FlexPen 100 FlexPen UNIT/ML UNIT/ML 100 UNIT/ML Januvia 100 Januvia 100 No 1{table QD Januvia mg mg t} 100 mg hydroCHLORO hydroCHLORO No hydroCHLOR thiazide thiazide Othiazide 12.5 MG 12.5 MG 12.5 MG hydrALAZINE hydrALAZINE No 1{table hydrALAZIN HCl 100 MG HCl 100 MG t} E HCl 100 MG Lotrisone Lotrisone No 1{appli BID Lotrisone 1-0.05 % 1-0.05 % cation_ 1-0.05 % to_affe cted_ar ea} Meclizine Meclizine No BID Meclizine HCl 25 mg HCl 25 mg HCl 25 mg tiZANidine tiZANidine No tiZANidine HCl 2 MG HCl 2 MG HCl 2 MG amLODIPine amLODIPine No 1{table QD amLODIPine Besylate 10 Besylate 10 t} Besylate MG MG 10 MG cloNIDine cloNIDine No cloNIDine HCl 0.3 MG HCl 0.3 MG HCl 0.3 MG Montelukast Montelukast No Montelukas Sodium 10 Sodium 10 t Sodium MG MG 10 MG OneTouch OneTouch No OneTouch Verio - Verio - Verio - Plavix 75 Plavix 75 No 1{table QD Plavix 75 MG MG t} MG Triamcinolo Triamcinolo No 1{appli BID Triamcinol ne ne cation_ one Acetonide Acetonide to_affe Acetonide 0.1 % 0.1 % cted_ar 0.1 % ea} Losartan Losartan No Losartan Potassium Potassium Potassium 100 MG 100 MG 100 MG Plavix 75 Plavix 75 No 1{table QD Plavix 75 MG MG t} MG hydroCHLORO hydroCHLORO No hydroCHLOR thiazide thiazide Othiazide 12.5 MG 12.5 MG 12.5 MG Unifine Unifine No Unifine Pentips 32G [...] 81 MG 81 MG t} 81 MG Triamcinolo Triamcinolo No 1{appli BID Triamcinol ne ne cation_ one Acetonide Acetonide to_affe Acetonide 0.1 % 0.1 % cted_ar 0.1 % ea} Mobic 7.5 Mobic 7.5 No 1{table QD Mobic 7.5 MG MG t} MG Tresiba Tresiba No Tresiba FlexTouch FlexTouch FlexTouch 200 UNIT/ML 200 UNIT/ML 200 UNIT/ML FeroSul 325 FeroSul 325 No FeroSul (65 Fe) MG (65 Fe) MG 325 (65 Fe) MG NovoLOG NovoLOG No NovoLOG FlexPen 100 FlexPen 100 FlexPen UNIT/ML UNIT/ML 100 UNIT/ML Ultram 50 Ultram 50 No 1{table QID Ultram 50 MG MG t_as_ne MG eded} Januvia 100 Januvia 100 No 1{table QD Januvia mg mg t} 100 mg Toujeo Toujeo No QD Toujeo SoloStar SoloStar SoloStar 300u/ml 300u/ml 300u/ml Montelukast Montelukast No Montelukas Sodium 10 Sodium 10 t Sodium MG MG 10 MG Levemir Levemir No Levemir FlexTouch FlexTouch FlexTouch 100 UNIT/ML 100 UNIT/ML 100 UNIT/ML Pravastatin Pravastatin No Pravastati Sodium 40 Sodium 40 n Sodium MG MG 40 MG amLODIPine amLODIPine No 1{table QD amLODIPine Besylate 10 Besylate 10 t} Besylate MG MG 10 MG Albuterol Albuterol No Albuterol Sulfate HFA Sulfate HFA Sulfate 108 (90 108 (90 HFA 108 Base) Base) (90 Base) MCG/ACT MCG/ACT MCG/ACT Permethrin Permethrin No 1{appli Permethrin 5 % [...] 100 MG t} E HCl 100 MG Metoprolol Metoprolol No Metoprolol Succinate Succinate Succinate ER 50 MG ER 50 MG ER 50 MG hydroCHLORO hydroCHLORO No hydroCHLOR thiazide thiazide Othiazide 12.5 MG 12.5 MG 12.5 MG hydrALAZINE hydrALAZINE No 1{table hydrALAZIN HCl 100 MG HCl 100 MG t} E HCl 100 MG FeroSul 325 FeroSul 325 No FeroSul (65 Fe) MG (65 Fe) MG 325 (65 Fe) MG Januvia 100 Januvia 100 No 1{table QD Januvia mg mg t} 100 mg OneTouch OneTouch No OneTouch Verio - Verio - Verio - Lotrisone Lotrisone No 1{appli BID Lotrisone 1-0.05 % 1-0.05 % cation_ 1-0.05 % to_affe cted_ar ea} Permethrin Permethrin No 1{appli Permethrin 5 % 5 % cation_ 5 % to_affe cted_ar ea} Triamcinolo Triamcinolo No 1{appli BID Triamcinol ne ne cation_ one Acetonide Acetonide to_affe Acetonide 0.1 % 0.1 % cted_ar 0.1 % ea} NovoLOG NovoLOG No NovoLOG FlexPen 100 FlexPen 100 FlexPen UNIT/ML UNIT/ML 100 UNIT/ML Ultram 50 Ultram 50 No 1{table QID Ultram 50 MG MG t_as_ne MG eded} Clopidogrel Clopidogrel No Clopidogre Bisulfate Bisulfate l 75 MG 75 MG Bisulfate 75 MG Mobic 7.5 Mobic 7.5 No 1{table QD Mobic 7.5 MG MG t} MG Unifine Unifine No Unifine Pentips 32G Pentips 32G Pentips X 4 MM X 4 MM 32G X 4 MM Losartan Losartan No Losartan Potassium Potassium Potassium 100 MG 100 MG 100 MG Ezetimibe Ezetimibe No 1{table QD Ezetimibe 10 MG 10 MG t} 10 MG Toujeo Toujeo No QD Toujeo SoloStar SoloStar SoloStar 300u/ml 300u/ml 300u/ml Pravastatin Pravastatin No Pravastati Sodium 40 Sodium 40 n Sodium MG MG 40 MG amLODIPine amLODIPine No 1{table QD amLODIPine Besylate 10 Besylate 10 t} Besylate MG MG 10 MG tiZANidine tiZANidine No tiZANidine HCl 2 MG HCl 2 MG HCl 2 MG Tresiba Tresiba No Tresiba FlexTouch FlexTouch FlexTouch 200 UNIT/ML 200 UNIT/ML 200 UNIT/ML Montelukast Montelukast No Montelukas Sodium 10 Sodium 10 t Sodium MG MG 10 MG cloNIDine cloNIDine No cloNIDine HCl [...] mg HCl 25 mg HCl 25 mg Metoprolol Metoprolol No Metoprolol Succinate Succinate Succinate ER 50 MG ER 50 MG ER 50 MG hydroCHLORO hydroCHLORO No hydroCHLOR thiazide thiazide Othiazide 12.5 MG 12.5 MG 12.5 MG hydrALAZINE hydrALAZINE No 1{table hydrALAZIN HCl 100 MG HCl 100 MG t} E HCl 100 MG FeroSul 325 FeroSul 325 No FeroSul (65 Fe) MG (65 Fe) MG 325 (65 Fe) MG Januvia 100 Januvia 100 No 1{table QD Januvia mg mg t} 100 mg OneTouch OneTouch No OneTouch Verio - Verio - Verio - Lotrisone Lotrisone No 1{appli BID Lotrisone 1-0.05 % 1-0.05 % cation_ 1-0.05 % to_affe cted_ar ea} Permethrin Permethrin No 1{appli Permethrin 5 % 5 % cation_ 5 % to_affe cted_ar ea} Triamcinolo Triamcinolo No 1{appli BID Triamcinol ne ne cation_ one Acetonide Acetonide to_affe Acetonide 0.1 % 0.1 % cted_ar 0.1 % ea} NovoLOG NovoLOG No NovoLOG FlexPen 100 FlexPen 100 FlexPen UNIT/ML UNIT/ML 100 UNIT/ML Ultram 50 Ultram 50 No 1{table QID Ultram 50 MG MG t_as_ne MG eded} Clopidogrel Clopidogrel No Clopidogre Bisulfate Bisulfate l 75 MG 75 MG Bisulfate 75 MG Mobic 7.5 Mobic 7.5 No 1{table QD Mobic 7.5 MG MG t} MG Unifine Unifine No Unifine Pentips 32G Pentips 32G Pentips X 4 MM X 4 MM 32G X 4 MM Losartan Losartan No Losartan Potassium Potassium Potassium 100 MG 100 MG 100 MG Ezetimibe Ezetimibe No 1{table QD Ezetimibe 10 MG 10 MG t} 10 MG Toujeo Toujeo No QD Toujeo SoloStar SoloStar SoloStar 300u/ml 300u/ml 300u/ml Pravastatin Pravastatin No Pravastati Sodium 40 Sodium 40 n Sodium MG MG 40 MG amLODIPine amLODIPine No 1{table QD amLODIPine Besylate 10 Besylate 10 t} Besylate MG MG 10 MG tiZANidine tiZANidine No tiZANidine HCl 2 MG HCl 2 MG HCl 2 MG Tresiba Tresiba No Tresiba FlexTouch FlexTouch FlexTouch 200 UNIT/ML 200 UNIT/ML 200 UNIT/ML Montelukast Montelukast No Montelukas Sodium 10 Sodium 10 t Sodium MG MG 10 MG cloNIDine cloNIDine No cloNIDine HCl [...] QD Mobic 7.5 MG MG t} MG tiZANidine tiZANidine No tiZANidine HCl 2 MG HCl 2 MG HCl 2 MG Januvia 100 Januvia 100 No 1{table QD Januvia mg mg t} 100 mg Tresiba Tresiba No Tresiba FlexTouch FlexTouch FlexTouch 200 UNIT/ML 200 UNIT/ML 200 UNIT/ML Meclizine Meclizine No BID Meclizine HCl 25 mg HCl 25 mg HCl 25 mg Unifine Unifine No Unifine Pentips 32G Pentips 32G Pentips X 4 MM X 4 MM 32G X 4 MM Clopidogrel Clopidogrel No Clopidogre Bisulfate Bisulfate l 75 MG 75 MG Bisulfate 75 MG Aspir-Low Aspir-Low No 1{table QD Aspir-Low 81 MG 81 MG t} 81 MG Permethrin Permethrin No 1{appli Permethrin 5 % 5 % cation_ 5 % to_affe cted_ar ea} Toujeo Toujeo No QD Toujeo SoloStar SoloStar SoloStar 300u/ml 300u/ml 300u/ml Levemir Levemir No Levemir FlexTouch FlexTouch FlexTouch 100 UNIT/ML 100 UNIT/ML 100 UNIT/ML Ezetimibe Ezetimibe No 1{table QD Ezetimibe 10 MG 10 MG t} 10 MG FeroSul 325 FeroSul 325 No FeroSul (65 Fe) MG (65 Fe) MG 325 (65 Fe) MG hydroCHLORO hydroCHLORO No hydroCHLOR thiazide thiazide Othiazide 12.5 MG 12.5 MG 12.5 MG NovoLOG NovoLOG No NovoLOG FlexPen 100 FlexPen 100 FlexPen UNIT/ML UNIT/ML 100 UNIT/ML OneTouch OneTouch No OneTouch Verio - Verio - Verio - hydrALAZINE hydrALAZINE No 1{table hydrALAZIN HCl 100 MG HCl 100 MG t} E HCl 100 MG Lotrisone Lotrisone No 1{appli BID Lotrisone 1-0.05 % 1-0.05 % cation_ 1-0.05 % to_affe cted_ar ea} Permethrin Permethrin No 1{appli Permethrin 5 % 5 % cation_ 5 % to_affe cted_ar ea} Lotrisone Lotrisone No 1{appli BID Lotrisone 1-0.05 % 1-0.05 % cation_ 1-0.05 % to_affe cted_ar ea} Triamcinolo Triamcinolo No 1{appli BID Triamcinol ne ne cation_ one Acetonide Acetonide to_affe Acetonide 0.1 % 0.1 % cted_ar 0.1 % ea} Ultram 50 Ultram 50 No 1{table QID Ultram 50 MG MG t_as_ne MG eded} Montelukast Montelukast No Montelukas Sodium 10 Sodium 10 t Sodium MG MG 10 MG cloNIDine cloNIDine No cloNIDine HCl 0.3 MG HCl 0.3 MG HCl 0.3 MG Metoprolol Metoprolol No Metoprolol Succinate Succinate Succinate ER 50 MG ER 50 MG ER 50 MG Pravastatin Pravastatin No Pravastati Sodium 40 Sodium 40 n Sodium MG MG 40 MG Losartan Losartan No Losartan Potassium Potassium Potassium 100 MG 100 MG 100 MG amLODIPine amLODIPine No 1{table QD amLODIPine Besylate 10 Besylate 10 t} Besylate MG MG 10 MG amLODIPine amLODIPine No 1{table QD amLODIPine Besylate 10 Besylate 10 t} Besylate MG MG 10 MG Levemir Levemir No Levemir FlexTouch FlexTouch FlexTouch 100 UNIT/ML 100 UNIT/ML 100 UNIT/ML Permethrin Permethrin No 1{appli Permethrin 5 % 5 % cation_ 5 % to_affe cted_ar ea} Tresiba Tresiba No Tresiba FlexTouch FlexTouch FlexTouch 200 UNIT/ML 200 UNIT/ML 200 UNIT/ML Triamcinolo Triamcinolo No 1{appli BID Triamcinol ne ne cation_ one Acetonide Acetonide to_affe Acetonide 0.1 % 0.1 % cted_ar 0.1 % ea} Albuterol Albuterol No Albuterol Sulfate HFA Sulfate HFA Sulfate 108 (90 108 (90 HFA 108 Base) Base) (90 Base) MCG/ACT MCG/ACT MCG/ACT Levemir Levemir No Levemir FlexTouch FlexTouch FlexTouch 100 UNIT/ML 100 UNIT/ML 100 UNIT/ML NovoLOG NovoLOG No NovoLOG FlexPen 100 FlexPen 100 FlexPen UNIT/ML UNIT/ML 100 UNIT/ML Albuterol Albuterol No Albuterol Sulfate HFA Sulfate HFA Sulfate 108 (90 108 (90 HFA 108 Base) Base) (90 Base) MCG/ACT MCG/ACT MCG/ACT Toujeo Toujeo No QD Toujeo SoloStar SoloStar SoloStar 300u/ml 300u/ml 300u/ml Lotrisone Lotrisone No 1{appli BID Lotrisone 1-0.05 % 1-0.05 % cation_ 1-0.05 % to_affe cted_ar ea} Ultram 50 Ultram 50 No 1{table QID Ultram 50 MG MG t_as_ne MG eded} Unifine Unifine No Unifine Pentips 32G Pentips 32G Pentips X 4 MM X 4 MM 32G X 4 MM Januvia 100 Januvia 100 No 1{table QD Januvia mg mg t} 100 mg Pravastatin Pravastatin No Pravastati Sodium 40 Sodium 40 n Sodium MG MG 40 MG Meclizine Meclizine No BID Meclizine HCl 25 mg HCl 25 mg HCl 25 mg Montelukast Montelukast No Montelukas Sodium 10 Sodium 10 t Sodium MG MG 10 MG hydroCHLORO hydroCHLORO No hydroCHLOR thiazide thiazide Othiazide 12.5 MG 12.5 MG 12.5 MG tiZANidine tiZANidine No tiZANidine HCl 2 MG HCl 2 MG HCl 2 MG Losartan Losartan No Losartan Potassium Potassium [...] OneTouch Verio - Verio - Verio - Januvia 100 Januvia 100 No 1{table QD Januvia mg mg t} 100 mg amLODIPine amLODIPine No 1{table QD amLODIPine Besylate 10 Besylate 10 t} Besylate MG MG 10 MG Aspir-Low Aspir-Low No 1{table QD Aspir-Low 81 MG 81 MG t} 81 MG Clopidogrel Clopidogrel No Clopidogre Bisulfate Bisulfate l 75 MG 75 MG Bisulfate 75 MG Mobic 7.5 Mobic 7.5 No 1{table QD Mobic 7.5 MG MG t} MG Ferrous Ferrous No 1{table QD Ferrous Sulfate 325 Sulfate 325 t} Sulfate (65 Fe) mg (65 Fe) mg 325 (65 Fe) mg Ezetimibe Ezetimibe No 1{table QD Ezetimibe 10 MG 10 MG t} 10 MG Tresiba Tresiba No Tresiba FlexTouch FlexTouch [...] X 4 MM 32G X 4 MM Savanah Vargaso No QD Toujeo SoloStar SoloStar SoloStar 300u/ml [...] MG HCl 0.3 MG HCl 0.3 MG Pravastatin Pravastatin No QD Pravastati Sodium [...] % cation_ 5 % to_affe cted_ar ea} Touoxana Toudaoo No QD Toujeo SoloStar SoloStar SoloStar 300u/ml [...] Yes Radha 1 tablet Common [facility] Januvia Januvia Yes Radha 1 tablet Comm on [facility] Toujeo Toujeo Yes Radha 100 units Commo n SoloStar SoloStar [facility] Tresiba Tresiba Yes Radha as Common FlexTouch FlexTouch [facility] directed [facility] NovoLog NovoLog Yes Radha as Common Flexpen Flexpen [facility] directed [facility] Unifine Unifine Yes Radha USE Common Pentips Pentips [facility] DIRECTED [facility] B[facility] Amlodipine Amlodipine Yes Radha 1 tablet Common Besylate Besylate [facility] Losartan Losartan Yes Radha 1 tablet Co mmon Potassium Potassium [facility] Metoprolol Metoprolol Yes Radha 1 tablet Common Succinate Succinate [facility] - [facility] Lotrisone Lotrisone Yes Radha 1 Comm on [facility] applicatio Spir it n to - [facility] affected [facility] Pravastatin Pravastatin Yes Radha 1 tablet Common Sodium Sodium [facility] in evenin S [facility] Aspir-Low Aspir-Low Yes Radha 1 tablet Common [facility] Ultram Ultram Yes Radha 1 tablet Common [facility] as needed Spiri t - [facility] Levemir Levemir Yes Radha as Common FlexTouch FlexTouch [facility] directed [facility] Fluconazole Fluconazole Yes Radha 1 tablet Common [facility] Farxiga Farxiga Yes Radha 1 Common [facility] Clonidine Clonidine Yes Radha 1 tablet Common HCl HCl [facility] in evening Spir it - [facility] Jardiance Jardiance Yes Radha 1 tablet [facility] Trulicity Trulicity Yes Radha one Comm on [facility] injection Spiri t - [facility] HydrALAZINE HydrALAZINE Yes Radha 1 tablet Common HCl HCl [facility] amLODIPine amLODIPine No 1{table QD amLODIPine [...] 325 (65 Fe) MG Pravastatin Pravastatin No Pravastati Sodium 40 Sodium 40 n Sodium MG MG 40 MG Metoprolol Metoprolol No Metoprolol Succinate Succinate Succinate ER 50 MG ER 50 MG ER 50 MG Ezetimibe Ezetimibe No 1{table QD Ezetimibe 10 MG 10 MG t} 10 MG NovoLOG NovoLOG No NovoLOG FlexPen 100 FlexPen 100 FlexPen UNIT/ML UNIT/ML 100 UNIT/ML Januvia 100 Januvia 100 No 1{table QD Januvia mg mg t} 100 mg hydroCHLORO hydroCHLORO No hydroCHLOR thiazide thiazide Othiazide 12.5 MG 12.5 MG 12.5 MG hydrALAZINE hydrALAZINE No 1{table hydrALAZIN HCl 100 MG HCl 100 MG t} E HCl 100 MG Permethrin Permethrin 2021- No 1{appli Permethrin 5 % 5 % 03-04 cation_ 5 % 00:00 to_affe :00 cted_ar ea} Methocarbam Methocarbam Radha 1 tablet Common ol ol 02-13 [facility] as needed Spir it 00:00 for muscle - [facility] :00 cramps/arabella [facility] Immunizations Ordered Filled Immunization Date Status Comments Sour e Immunization Name Name FLUZONE HIGH DOSE FLUZONE HIGH DOSE 2022-07-09 Completed [facility] - OVER 65 OVER 65 13:31:00 [facility] FLUZONE HIGH DOSE FLUZONE HIGH DOSE 2022-07-09 Completed [facility] - OVER 65 OVER 65 13:31:00 [facility] FLUZONE HIGH DOSE FLUZONE HIGH DOSE 2022-07-09 Completed [facility] - OVER 65 OVER 65 13:31:00 [facility] FLUZONE HIGH DOSE FLUZONE HIGH DOSE 2022-07-09 Completed [facility] - OVER 65 OVER 65 13:31:00 [facility] FLUZONE HIGH DOSE FLUZONE HIGH DOSE 2022-07-09 Completed [facility] - OVER 65 OVER 65 13:31:00 [facility] MACI COVID-19 2020-11-17 Completed [facility] AD[facility] VACCINATION 00:00:00 [facility] MACI COVID-19 2020-11-17 Completed [facility] AD26 VACCINATION 00:00:00 [facility] Influenza Virus 2020-07-05 Completed [facility] Vaccine 00:00:00 [facility] Zoster Vaccine 2020-07-05 Completed [facility] 00:00:00 [facility] Influenza Virus 2020-07-05 Completed [facility] Vaccine 00:00:00 [facility] Zoster Vaccine 2020-07-05 Completed [facility] of Recombinant 00:00:00 [facility] Influenza Virus 2020-07-05 Completed [facility] Vaccine 00:00:00 [facility] Zoster Vaccine 2020-07-05 Completed [facility] of Recombinant 00:00:00 [facility] Influenza Virus 2020-07-05 Completed [facility] Vaccine 00:00:00 [facility] Zoster Vaccine 2020-07-05 Completed [facility] of Recombinant 00:00:00 [facility] Influenza Virus 2020-07-05 Completed [facility] Vaccine 00:00:00 [facility] Zoster Vaccine 2020-07-05 Completed [facility] of Recombinant 00:00:00 [facility] Influenza Virus 2020-07-05 Completed [facility] Vaccine 00:00:00 [facility] Zoster Vaccine 2020-07-05 Completed [facility] of Recombinant 00:00:00 [facility] Influenza Virus 2020-07-05 Completed [facility] Vaccine 00:00:00 [facility] Zoster Vaccine 2020-07-05 Completed [facility] of Recombinant 00:00:00 [facility] Influenza Virus 2020-07-05 Completed [facility] of Vaccine 00:00:00 [facility] Zoster Vaccine 2020-07-05 Completed [facility] Recombinant 00:00:00 [facility] Influenza Virus 2020-07-05 Completed [facility] Vaccine 00:00:00 [facility] Zoster Vaccine 2020-07-05 Completed [facility] Recombinant 00:00:00 [facility] Shingrix Shingrix 2020-06-21 Completed [facility] - 16:46:00 [facility] Flucelvax - single Flucelvax - single 2020-06-21 Completed [facility] - dose syringe dose syringe 16:46:00 [facility] Shingrix Shingrix 2020-06-21 Completed [facility] - 16:46:00 [facility] Flucelvax - single Flucelvax - single 2020-06-21 Completed [facility] - dose syringe dose syringe 16:46:00 [facility] Shingrix Shingrix 2020-06-21 Completed [facility] - 16:46:00 [facility] Flucelvax - single Flucelvax - single 2020-06-21 Completed [facility] - dose syringe dose syringe 16:46:00 [facility] Shingrix Shingrix 2020-06-21 Completed [facility] - 16:46:00 [facility] Flucelvax - single Flucelvax - single 2020-06-21 Completed [facility] - dose syringe dose syringe 16:46:00 [facility] Shingrix Shingrix 2020-06-21 Completed [facility] - 16:46:00 [facility] Flucelvax - single Flucelvax - single 2020-06-21 Completed [facility] - dose syringe dose syringe 16:46:00 [facility] Shingrix Shingrix 2020-06-21 Completed [facility] - 16:46:00 [facility] Flucelvax - single Flucelvax - single 2020-06-21 Completed [facility] - dose syringe dose syringe 16:46:00 [facility] Shingrix Shingrix 2020-06-21 Completed [facility] - 16:46:00 [facility] Flucelvax - single Flucelvax - single 2020-06-21 Completed [facility] - dose syringe dose syringe 16:46:00 [facility] Shingrix Shingrix 2020-06-21 Completed [facility] - 16:46:00 [facility] Flucelvax - single Flucelvax - single 2020-06-21 Completed [facility] - dose syringe dose syringe 16:46:00 [facility] Shingrix Shingrix 2020-06-21 Completed [facility] - 16:46:00 [facility] Flucelvax - single Flucelvax - single 2020-06-21 Completed [facility] - dose syringe dose syringe 16:46:00 [facility] Shingrix Shingrix 2020-06-21 Completed [facility] - 16:46:00 [facility] Flucelvax - single Flucelvax - single 2020-06-21 Completed [facility] - dose syringe dose syringe 16:46:00 [facility] Shingrix Shingrix 2020-06-21 Completed [facility] - 16:46:00 [facility] Flucelvax - single Flucelvax - single 2020-06-21 Completed [facility] - dose syringe dose syringe 16:46:00 [facility] Shingrix Shingrix 2020-06-21 Completed [facility] - 16:46:00 [facility] Flucelvax - single Flucelvax - single 2020-06-21 Completed [facility] - dose syringe dose syringe 16:46:00 [facility] Shingrix Shingrix 2020-06-21 Completed [facility] - 16:46:00 [facility] Flucelvax - single Flucelvax - single 2020-06-21 Completed [facility] - dose syringe dose syringe 16:46:00 [facility] Shingrix Shingrix 2020-06-21 Completed [facility] - 16:46:00 [facility] Flucelvax - single Flucelvax - single 2020-06-21 Completed [facility] - dose syringe dose syringe 16:46:00 [facility] Shingrix Shingrix 2020-06-21 Completed [facility] - 16:46:00 [facility] Flucelvax - single Flucelvax - single 2020-06-21 Completed [facility] - dose syringe dose syringe 16:46:00 [facility] Shingrix Shingrix 2020-06-21 Completed [facility] - 16:46:00 [facility] Flucelvax - single Flucelvax - single 2020-06-21 Completed [facility] - dose syringe dose syringe 16:46:00 [facility] Shingrix Shingrix 2020-06-21 Completed [facility] - 16:46:00 [facility] Flucelvax - single Flucelvax - single 2020-06-21 Completed [facility] - dose syringe dose syringe 16:46:00 [facility] Shingrix Shingrix 2020-06-21 Completed [facility] - 16:46:00 [facility] Flucelvax - single Flucelvax - single 2020-06-21 Completed [facility] - dose syringe dose syringe 16:46:00 [facility] Shingrix Shingrix 2020-06-21 Completed [facility] - 16:46:00 [facility] Flucelvax - single Flucelvax - single 2020-06-21 Completed [facility] - dose syringe dose syringe 16:46:00 [facility] Shingrix Shingrix 2020-06-21 Completed [facility] - 16:46:00 [facility] Flucelvax - single Flucelvax - single 2020-06-21 Completed [facility] - dose syringe dose syringe 16:46:00 [facility] Shingrix Shingrix 2020-06-21 Completed [facility] - 16:46:00 [facility] Flucelvax - single Flucelvax - single 2020-06-21 Completed [facility] - dose syringe dose syringe 16:46:00 [facility] Shingrix Shingrix 2020-06-21 Completed [facility] - 16:46:00 [facility] Flucelvax - single Flucelvax - single 2020-06-21 Completed [facility] - dose syringe dose syringe 16:46:00 [facility] Shingrix Shingrix 2020-06-21 Completed [facility] - 16:46:00 [facility] Flucelvax - single Flucelvax - single 2020-06-21 Completed [facility] - dose syringe dose syringe 16:46:00 [facility] Shingrix Shingrix 2020-06-21 Completed [facility] - 16:46:00 [facility] Flucelvax - single Flucelvax - single 2020-06-21 Completed [facility] - dose syringe dose syringe 16:46:00 [facility] Shingrix Shingrix 2020-06-21 Completed [facility] - 16:46:00 [facility] Flucelvax - single Flucelvax - single 2020-06-21 Completed [facility] - dose syringe dose syringe 16:46:00 [facility] Shingrix Shingrix 2020-06-21 Completed [facility] - 16:46:00 [facility] Flucelvax - single Flucelvax - single 2020-06-21 Completed [facility] - dose syringe dose syringe 16:46:00 [facility] Shingrix Shingrix 2020-06-21 Completed [facility] - 16:46:00 [facility] Flucelvax - single Flucelvax - single 2020-06-21 Completed [facility] - dose syringe dose syringe 16:46:00 [facility] Shingrix Shingrix 2020-06-21 Completed [facility] - 16:46:00 [facility] Flucelvax - single Flucelvax - single 2020-06-21 Completed [facility] - dose syringe dose syringe 16:46:00 [facility] Shingrix Shingrix 2020-06-21 Completed [facility] - 16:46:00 [facility] Flucelvax - single Flucelvax - single 2020-06-21 Completed [facility] - dose syringe dose syringe 16:46:00 [facility] Shingrix Shingrix 2020-06-21 Completed [facility] - 16:46:00 [facility] Flucelvax - single Flucelvax - single 2020-06-21 Completed [facility] - dose syringe dose syringe 16:46:00 [facility] Shingrix Shingrix 2020-06-21 Completed [facility] - 16:46:00 [facility] Flucelvax - single Flucelvax - single 2020-06-21 Completed [facility] - dose syringe dose syringe 16:46:00 [facility] Shingrix Shingrix 2020-06-21 Completed [facility] - 16:46:00 [facility] Flucelvax - single Flucelvax - single 2020-06-21 Completed [facility] - dose syringe dose syringe 16:46:00 [facility] Shingrix Shingrix 2020-06-21 Completed [facility] - 16:46:00 [facility] Flucelvax - single Flucelvax - single 2020-06-21 Completed [facility] - dose syringe dose syringe 16:46:00 [facility] Shingrix Shingrix 2020-06-21 Completed [facility] - 16:46:00 [facility] Flucelvax - single Flucelvax - single 2020-06-21 Completed [facility] - dose syringe dose syringe 16:46:00 [facility] Flucelvax - Flucelvax - 2018-05-23 Completed [facility] - multidose vial multidose vial 11:15:00 [facility] Flucelvax - Flucelvax - 2018-05-23 Completed [facility] - multidose vial multidose vial 11:15:00 [facility] Flucelvax - Flucelvax - 2018-05-23 Completed [facility] - multidose vial multidose vial 11:15:00 [facility] Flucelvax - Flucelvax - 2018-05-23 Completed [facility] - multidose vial multidose vial 11:15:00 [facility] Flucelvax - Flucelvax - 2018-05-23 Completed [facility] - multidose vial multidose vial 11:15:00 [facility] Flucelvax - Flucelvax - 2018-05-23 Completed [facility] - multidose vial multidose vial 11:15:00 [facility] Flucelvax - Flucelvax - 2018-05-23 Completed [facility] - multidose vial multidose vial 11:15:00 [facility] Flucelvax - Flucelvax - 2018-05-23 Completed [facility] - multidose vial multidose vial 11:15:00 [facility] Flucelvax - Flucelvax - 2018-05-23 Completed [facility] - multidose vial multidose vial 11:15:00 [facility] Flucelvax - Flucelvax - 2018-05-23 Completed [facility] - multidose vial multidose vial 11:15:00 [facility] Flucelvax - Flucelvax - 2018-05-23 Completed [facility] - multidose vial multidose vial 11:15:00 [facility] Flucelvax - Flucelvax - 2018-05-23 Completed [facility] - multidose vial multidose vial 11:15:00 [facility] Flucelvax - Flucelvax - 2018-05-23 Completed [facility] - multidose vial multidose vial 11:15:00 [facility] Flucelvax - Flucelvax - 2018-05-23 Completed [facility] - multidose vial multidose vial 11:15:00 [facility] Flucelvax - Flucelvax - 2018-05-23 Completed [facility] - multidose vial multidose vial 11:15:00 [facility] Flucelvax - Flucelvax - 2018-05-23 Completed [facility] - multidose vial multidose vial 11:15:00 [facility] Flucelvax - Flucelvax - 2018-05-23 Completed [facility] - multidose vial multidose vial 11:15:00 [facility] Flucelvax - Flucelvax - 2018-05-23 Completed [facility] - multidose vial multidose vial 11:15:00 [facility] Flucelvax - Flucelvax - 2018-05-23 Completed [facility] - multidose vial multidose vial 11:15:00 [facility] Flucelvax - Flucelvax - 2018-05-23 Completed [facility] - multidose vial multidose vial 11:15:00 [facility] Flucelvax - Flucelvax - 2018-05-23 Completed [facility] - multidose vial multidose vial 11:15:00 [facility] Flucelvax - Flucelvax - 2018-05-23 Completed [facility] - multidose vial multidose vial 11:15:00 [facility] Flucelvax - Flucelvax - 2018-05-23 Completed [facility] - multidose vial multidose vial 11:15:00 [facility] Flucelvax - Flucelvax - 2018-05-23 Completed [facility] - multidose vial multidose vial 11:15:00 [facility] Flucelvax - Flucelvax - 2018-05-23 Completed [facility] - multidose vial multidose vial 11:15:00 [facility] Flucelvax - Flucelvax - 2018-05-23 Completed [facility] - multidose vial multidose vial 11:15:00 [facility] Flucelvax - Flucelvax - 2018-05-23 Completed [facility] - multidose vial multidose vial 11:15:00 [facility] Flucelvax - Flucelvax - 2018-05-23 Completed [facility] - multidose vial multidose vial 11:15:00 [facility] Flucelvax - Flucelvax - 2018-05-23 Completed [facility] - multidose vial multidose vial 11:15:00 [facility] Flucelvax - Flucelvax - 2018-05-23 Completed [facility] - multidose vial multidose vial 11:15:00 [facility] Flucelvax - Flucelvax - 2018-05-23 Completed [facility] - multidose vial multidose vial 11:15:00 [facility] Flucelvax - Flucelvax - 2018-05-23 Completed [facility] - multidose vial multidose vial 11:15:00 [facility] Flucelvax - Flucelvax - 2018-05-23 Completed [facility] - multidose vial multidose vial 11:15:00 [facility] Flucelvax - Flucelvax - 2018-05-23 Completed [facility] - multidose vial multidose vial 11:15:00 [facility] Flucelvax - Flucelvax - 2018-05-23 Completed [facility] - multidose vial multidose vial 00:00:00 [facility] Vital Signs Vital Name Observation Time Observation Value Comments Source Systolic blood 2022-09-26 16:16:00 180 mm[Hg] Univer sity of pressure [facility] Diastolic blood 2022-09-26 16:16:00 82 mm[Hg] Unive rsity of pressure [facility] Heart rate 2022-09-26 16:06:00 50 /min [facility] Body weight 2022-09-26 16:06:00 108.909 kg [facility] BMI 2022-09-26 16:06:00 37.60 kg/m2 [facility] Oxygen saturation in 2022-09-26 16:06:00 98 /min [facility] blood by [facility] Pulse oximetry Branch height 2022-09-05 13:15:00 69.00 [in_i] [facility] weight 2022-09-05 13:15:00 238 [lb_av] [facility] temperature 2022-09-05 13:15:00 97.6 [degF] Common [facility] bmi 2022-09-05 13:15:00 35.14 kg/m2 [facility] oximetry 2022-09-05 13:15:00 99 % Common [facility] respiratory rate 2022-09-05 13:15:00 18 /min Comm on [facility] blood pressure 2022-09-05 13:15:00 146 mm[Hg] Common [facility] - systolic [facility] blood pressure 2022-09-05 13:15:00 68 mm[Hg] Common [facility] - diastolic [facility] height 2022-07-19 13:20:00 69.00 [in_i] Common [facility] weight 2022-07-19 13:20:00 236.0 [lb_av] [facility] temperature 2022-07-19 13:20:00 97.6 [degF] Common [facility] bmi 2022-07-19 13:20:00 34.85 kg/m2 [facility] oximetry 2022-07-19 13:20:00 96 % [facility] respiratory rate 2022-07-19 13:20:00 18 /min Comm on [facility] blood pressure 2022-07-19 13:20:00 138 mm[Hg] Common [facility] - systolic [facility] blood pressure 2022-07-19 13:20:00 79 mm[Hg] Common [facility] - diastolic [facility] height 2022-07-13 12:00:00 69.00 [in_i] Common [facility] weight 2022-07-13 12:00:00 239.8 [lb_av] [facility] temperature 2022-07-13 12:00:00 97.7 [degF] Common [facility] bmi 2022-07-13 12:00:00 35.41 kg/m2 [facility] oximetry 2022-07-13 12:00:00 99 % [facility] respiratory rate 2022-07-13 12:00:00 18 /min Comm on [facility] blood pressure 2022-07-13 12:00:00 179 mm[Hg] Common [facility] - systolic [facility] blood pressure 2022-07-13 12:00:00 81 mm[Hg] Common [facility] - diastolic [facility] height 2022-07-09 10:20:00 69.00 [in_i] [facility] weight 2022-07-09 10:20:00 238.4 [lb_av] [facility] temperature 2022-07-09 10:20:00 97.3 [degF] [facility] bmi 2022-07-09 10:20:00 35.20 kg/m2 [facility] oximetry 2022-07-09 10:20:00 97 % [facility] respiratory rate 2022-07-09 10:20:00 18 /min Comm on [facility] blood pressure 2022-07-09 10:20:00 130 mm[Hg] Common [facility] - systolic [facility] blood pressure 2022-07-09 10:20:00 82 mm[Hg] Common [facility] - diastolic [facility] height 2022-05-21 10:00:00 69.00 [in_i] [facility] weight 2022-05-21 10:00:00 237.6 [lb_av] [facility] temperature 2022-05-21 10:00:00 97.4 [degF] [facility] bmi 2022-05-21 10:00:00 35.08 kg/m2 [facility] oximetry 2022-05-21 10:00:00 96 % [facility] respiratory rate 2022-05-21 10:00:00 18 /min Comm on [facility] blood pressure 2022-05-21 10:00:00 120 mm[Hg] Common [facility] - systolic [facility] blood pressure 2022-05-21 10:00:00 82 mm[Hg] Common [facility] - diastolic [facility] height 2022-04-19 11:20:00 69.00 [in_i] [facility] weight 2022-04-19 11:20:00 237.0 [lb_av] Common [facility] temperature 2022-04-19 11:20:00 97.5 [degF] Common [facility] bmi 2022-04-19 11:20:00 34.99 kg/m2 [facility] oximetry 2022-04-19 11:20:00 98 % [facility] respiratory rate 2022-04-19 11:20:00 18 /min Comm on [facility] blood pressure 2022-04-19 11:20:00 180 mm[Hg] Common [facility] - systolic [facility] blood pressure 2022-04-19 11:20:00 90 mm[Hg] Common [facility] diastolic [facility] height 2022-04-19 11:20:00 69.00 [in_i] Common [facility] weight 2022-04-19 11:20:00 237.0 [lb_av] [facility] temperature 2022-04-19 11:20:00 97.5 [degF] [facility] bmi 2022-04-19 11:20:00 34.99 kg/m2 [facility] oximetry 2022-04-19 11:20:00 98 % [facility] respiratory rate 2022-04-19 11:20:00 18 /min Comm on [facility] blood pressure 2022-04-19 11:20:00 180 mm[Hg] [facility] - systolic [facility] blood pressure 2022-04-19 11:20:00 90 mm[Hg] [facility] - diastolic [facility] Systolic blood 2022-02-13 22:21:00 163 mm[Hg] Univer sity of [facility] Diastolic blood 2022-02-13 22:21:00 76 mm[Hg] Unive rsity of [facility] Heart rate 2022-02-13 22:21:00 61 /min [facility] Body weight 2022-02-13 22:21:00 112.492 kg [facility] BMI 2022-02-13 22:21:00 38.84 kg/m2 [facility] height 2022-01-31 09:30:00 69.00 [in_i] Common [facility] weight 2022-01-31 09:30:00 256.6 [lb_av] [facility] - [facility] temperature 2022-01-31 09:30:00 97.2 [degF] [facility] bmi 2022-01-31 09:30:00 37.89 kg/m2 Common S [facility]irit - [facility] blood pressure 2022-01-31 09:30:00 148 mm[Hg] [facility] - systolic [facility] blood pressure 2022-01-31 09:30:00 86 mm[Hg] [facility] - diastolic [facility] height 2022-01-16 13:30:00 69.00 [in_i] [facility] - [facility] weight 2022-01-16 13:30:00 250 [lb_av] [facility] - [facility] bmi 2022-01-16 13:30:00 36.91 kg/m2 [facility] - [facility] blood pressure 2022-01-16 13:30:00 148 mm[Hg] [facility] - systolic [facility] blood pressure 2022-01-16 13:30:00 90 mm[Hg] [facility] - diastolic [facility] height 2021-12-07 15:00:00 69.00 [in_i] Common S [facility]irit - [facility] weight 2021-12-07 15:00:00 250 [lb_av] [facility] - [facility] bmi 2021-12-07 15:00:00 36.91 kg/m2 [facility] - [facility] blood pressure 2021-12-07 15:00:00 158 mm[Hg] [facility] - systolic [facility] blood pressure 2021-12-07 15:00:00 90 mm[Hg] [facility] - diastolic [facility] height 2021-11-01 14:30:00 69.00 [in_i] [facility] weight 2021-11-01 14:30:00 250 [lb_av] [facility] bmi 2021-11-01 14:30:00 36.91 kg/m2 [facility] blood pressure 2021-11-01 14:30:00 162 mm[Hg] [facility] - systolic [facility] blood pressure 2021-11-01 14:30:00 90 mm[Hg] [facility] - diastolic [facility] height 2021-10-03 13:00:00 69.00 [in_i] [facility] weight 2021-10-03 13:00:00 249.6 [lb_av] Common [facility] temperature 2021-10-03 13:00:00 98.0 [degF] [facility] bmi 2021-10-03 13:00:00 36.86 kg/m2 [facility] 2021-10-03 13:00:00 95 % [facility] respiratory rate 2021-10-03 13:00:00 16 /min Comm on [facility] - [facility] blood pressure 2021-10-03 13:00:00 136 mm[Hg] Common [facility] - systolic [facility] blood pressure 2021-10-03 13:00:00 80 mm[Hg] [facility] - diastolic [facility] height 2021-07-27 11:00:00 69.00 [in_i] [facility] weight 2021-07-27 11:00:00 250 [lb_av] [facility] temperature 2021-07-27 11:00:00 98.4 [degF] [facility] bmi 2021-07-27 11:00:00 36.91 kg/m2 [facility] oximetry 2021-07-27 11:00:00 96 % [facility] respiratory rate 2021-07-27 11:00:00 18 /min Comm on [facility] blood pressure 2021-07-27 11:00:00 190 mm[Hg] [facility] systolic [facility] blood pressure 2021-07-27 11:00:00 86 mm[Hg] [facility] diastolic [facility] Systolic blood 2022-06-23 18:16:00 150 mm[Hg] [facility] pressure Diastolic blood 2022-06-23 18:16:00 89 mm[Hg] [facility] pressure Heart rate 2022-06-23 18:16:00 80 /min [facility] Body temperature 2022-06-23 18:16:00 36.67 Zabrina [facility] Respiratory rate 2022-06-23 18:16:00 18 /min [facility] Oxygen saturation in 2022-06-23 18:16:00 100 /min [facility] Arterial blood by Pulse oximetry Body weight 2022-06-23 12:00:00 106.278 kg [facility] BMI 2022-06-23 12:00:00 36.70 kg/m2 [facility] Body height 2022-06-21 04:49:00 170.2 cm [facility] Procedures Procedure Date / Time Performing Source Performed Clinician [facility] PATIENT FINANCIAL POLICY 2023-01-30 Doctor Unassigned, [place] of 20:04:30 [place] [facility] POCT HEMOGLOBIN A1C TEST 2022-09-26 Aung Conley ity of 16:17:00 [facility] ASSIGNMENT OF BENEFITS 2022-09-26 Doctor Unassigned, [facility] sity of 16:02:29 [place] [facility] POC GLUCOSE 2022-06-23 Kalpesh Akhtar 17:44:00 Hospital POC GLUCOSE 2022-06-23 Kalpesh Akhtar 13:48:00 Hospital CBC WITH PLATELET AND DIFFERENTIAL 2022-06-23 Preston Cabrera 10:17:00 [facility] COMPREHENSIVE METABOLIC PANEL 2022-06-23 Preston Cabrera thodist 10:17:00 [facility] ESTIMATED GFR 2022-06-23 Preston Cabrera 10:17:00 [facility] POC GLUCOSE 2022-06-22 Kalpesh Akhtar 22:16:00 Hospital SURGICAL PATHOLOGY REQUEST 2022-06-22 Kalpesh Akhtar [facility] dist 17:54:00 Hospital COLONOSCOPY 2022-06-22 Preston Cabrera 17:49:00 [facility] ESOPHAGOGASTRODUODENOSCOPY (EGD) 2022-06-22 Preston Cabrera 17:49:00 [facility] TRANSFUSE RED BLOOD CELLS 2022-06-22 Preston Cabrera ist 15:40:00 [facility] POC GLUCOSE 2022-06-22 Kalpesh Akhtar 14:18:00 [facility] TRANSFUSE RED BLOOD CELLS 2022-06-22 Preston Cabrera ist 12:21:00 [facility] CBC WITH PLATELET AND DIFFERENTIAL 2022-06-22 Preston Cabrera 09:56:00 [facility] COMPREHENSIVE METABOLIC PANEL 2022-06-22 Preston Cabrera thodist 09:56:00 [facility] MAGNESIUM LEVEL 2022-06-22 Kalpesh Akhtar 09:56:00 Hospital PHOSPHORUS LEVEL 2022-06-22 Kalpesh Akhtar 09:56:00 Hospital HEMOGLOBIN A1C 2022-06-22 Kalpesh Akhtar 09:56:00 Hospital ESTIMATED GFR 2022-06-22 Kalpesh Akhtar 09:56:00 Hospital SMEAR REVIEW 2022-06-22 Cody Christian 09:56:00 Hospital POC GLUCOSE 2022-06-22 Kalpesh Akhtar 02:28:00 Hospital POC GLUCOSE 2022-06-21 Kalpesh Akhtar 21:22:00 Hospital XR KNEE 1 OR 2 VW RIGHT 2022-06-21 Kalpesh Akhtar t 19:41:46 Hospital POC GLUCOSE 2022-06-21 Kalpesh Akhtar 19:39:00 Hospital COVID-19 QUALITATIVE RT-PCR 2022-06-21 Vale Mckay 10:24:00 [facility] CBC WITH PLATELET AND DIFFERENTIAL 2022-06-21 Lana Mckay 10:24:00 [facility] BASIC METABOLIC PANEL 2022-06-21 Cody Christian 10:24:00 Hospital ESTIMATED GFR 2022-06-21 Cody Christian 10:24:00 Hospital CTA ABD/PEL FOR BLEEDING 2022-06-[address] 07:23:36 [facility] POC GLUCOSE 2022-06-21 Lana Mckay 07:17:00 [facility] ABO AND RH CONFIRMATION BY 2022-06-21 Danita Mckay dist PROTOCOL 05:54:00 [facility] ECG ED PRELIMINARY INTERPRETATION 2022-06-21 Lana Mckay 05:27:52 [facility] AL CRITICAL CARE ILL/INJURED 2022-06-21 Met gilson Mckay PATIENT INIT 30-74 MIN 05:27:52 [facility] PREPARE RBC 2022-06-21 Fidel Adam 05:11:00 [facility] CBC WITH PLATELET AND DIFFERENTIAL 2022-06-21 Lana Mckay 05:11:00 [facility] PROTHROMBIN TIME WITH INR 2022-06-21 Jaya Mckay ist 05:11:00 [facility] TYPE AND SCREEN 2022-06-21 Lana Mckay 05:11:00 [facility] COMPREHENSIVE METABOLIC PANEL 2022-06-21 Me Nely thodi 05:11:00 [facility] LIPASE LEVEL 2022-06-21 Lana Mckay 05:11:00 [facility] ESTIMATED GFR 2022-06-21 Lana Mckay 05:11:00 [facility] POCT HEMOGLOBIN A1C TEST 2022-02-13 Janet Jovel ity of 20:57:00 [facility] Plan of Care Planned Activity Planned Date Details Comments Source Future Scheduled 2023-01-31 Screening for [facility] Test 00:18:49 malignant neoplasm of colon (procedure) [code = 385073615] Future Scheduled 2023-01-31 Screening for [facility] Test 00:18:49 malignant neoplasm of colon (procedure) [code = 937317561] Future Scheduled 2023-01-31 Screening for [facility] Test 00:18:49 malignant neoplasm of colon (procedure) [code = 188700301] Future Scheduled 2023-01-31 65+ PNEUMOCOCCAL [facility] Test 00:18:49 VACCINE (1 - PCV) [code = 65+ PNEUMOCOCCAL VACCINE (1 - PCV)] Future Scheduled 2023-01-31 Hepatitis C screening [facility] Test 00:18:49 (procedure) [code = 390638375] Future Scheduled 2023-01-31 Screening for [facility] Test 00:18:49 malignant neoplasm of colon (procedure) [code = 361095683] Future Scheduled 2023-01-31 Screening for [facility] Test 00:18:49 malignant neoplasm of colon (procedure) [code = 107258904] Future Scheduled 2023-01-31 SHINGLES VACCINES (2 Met [facility] Test 00:18:49 of 2) [code = SHINGLES VACCINES (2 of 2)] Future Scheduled 2023-01-31 COVID-19 VACCINE (2 - [facility] Test 00:18:49 Booster for Maci series) [code = COVID-19 VACCINE (2 - Booster for Maci series)] Future Scheduled 2023-01-31 INFLUENZA VACCINE Method [facility] Test 00:18:49 [code = INFLUENZA VACCINE] Future Scheduled 2022-06-20 HEPATITIS B VACCINES Met [facility] Test 10:09:17 (1 of 3 - 3-dose series) [code = HEPATITIS B VACCINES (1 of 3 - 3-dose series)] Future Scheduled 2022-06-20 65+ PNEUMOCOCCAL [facility] Test 10:09:17 VACCINE (1 - PCV) [code = 65+ PNEUMOCOCCAL VACCINE (1 - PCV)] Future Scheduled 2022-06-20 Hepatitis C screening [facility] Test 10:09:17 (procedure) [code = 956321716] Future Scheduled 2022-06-20 COLONOSCOPY SCREENING [facility] Test 10:09:17 [code = COLONOSCOPY SCREENING] Future Scheduled 2022-06-20 SHINGLES VACCINES (2 Met [facility] Test 10:09:17 of 2) [code = SHINGLES VACCINES (2 of 2)] Future Scheduled 2022-06-20 COVID-19 VACCINE (2 - [facility] Test 10:09:17 Booster for Maci series) [code = COVID-19 VACCINE (2 - Booster for Maci series)] Future Scheduled 2022-06-20 INFLUENZA VACCINE Method [facility] Test 10:09:17 [code = INFLUENZA VACCINE] Encounters Start End Encounter Admission Attending Care Care Encounter Source Date/Time Date/Time Type Type Clinicians Facility Department ID 2022-12-13 Outpatient Kelley, STLMLC STLMLC [id number] Common 14:06:00 Sheryl [id number] [facility] 2022-12-11 Outpatient Kelley, STLMLC STLMLC [id number] Common 14:42:00 Sheryl [id number] [facility] 2022-10-08 Outpatient Kelley, STLMLC STLMLC [id number] Common 09:11:00 Sheryl [id number] [facility] 2022-09-11 Outpatient ALCANTARA, Na STLMLC STLMLC [id number] 2 Common 10:07:00 [id number] [facility] 2022-08-31 Outpatient ALCANTARA, Na STLMLC STLMLC [id number] 2 Common 11:22:00 [id number] [facility] 2022-08-30 Outpatient ALCANTARA, Na STLMLC STLMLC [id number] 2 Common 13:58:00 [id number] [facility] 2022-07-16 Outpatient Alcantara, Na STLMLC STLMLC [id number] 2 Common 08:37:00 [facility] 2022-07-06 Outpatient Alcantara, Na STLMLC STLMLC [id number] 2 Common 08:56:00 [facility] 2022-07-04 Outpatient Alcantara, Na STLMLC STLMLC [id number] 2 Common 10:36:00 [facility] 2022-07-03 Outpatient Alcantara, Na STLMLC STLMLC [id number] 2 Common 13:06:02 [facility] 2022-06-30 Outpatient Alcantara, Na STLMLC STLMLC [id number] 2 Common 03:48:01 [facility] 2022-06-20 [facility] STC [id number] [facility] 00:00:00 [facility] 2022-05-21 Outpatient Alcantara, Na STLMLC STLMLC [id number] 2 Common 09:58:00 [facility] 2022-05-16 Outpatient Alcantara, Na STLMLC STLMLC [id number] 2 Common 10:45:00 [facility] 2022-04-19 Outpatient Alcantara, Na STLMLC STLMLC [id number] 2 Common 12:06:00 [facility] 2022-01-31 Outpatient Alcantara, Na STLMLC STLMLC [id number] 2 Common 09:24:00 [facility] 2022-01-19 Outpatient Alcantara, Na STLMLC STLMLC [id number] 2 Common 09:26:00 [facility] 2022-01-03 Outpatient Alcantara, Na STLMLC STLMLC [id number] 2 Common 14:11:00 [facility] 2021 Outpatient Alcantara, Na STLMLC STLMLC [id number] 2 Common 08:59:05 [facility] 2021-12-08 Outpatient Alcantara, Na STLMLC STLMLC [id number] 2 Common 10:14:00 [facility] 2021-12-07 Outpatient Alcantara, Na STLMLC STLMLC [id number] 2 Common 14:50:00 [facility] 2021-11-09 Outpatient Alcantara, Na STLMLC STLMLC [id number] 2 Common 13:53:00 [facility] 2021-10-26 Outpatient Alcantara, Na STLMLC STLMLC [id number] 2 Common 11:08:01 [facility] 2021-10-25 Outpatient Alcantara, Na STLMLC STLMLC [id number] 2 Common 13:29:00 [facility] 2021-10-24 Outpatient Alcantara, Na STLMLC STLMLC [id number] 2 Common 09:15:01 [facility] 2021-10-19 Outpatient Alcantara, Na STLMLC STLMLC [id number] 2 Common 10:06:01 [facility] 2021-09-06 Outpatient Alcantara, Na STLMLC STLMLC [id number] 2 Common 14:37:52 [facility] 2021-09-06 Outpatient Alcantara, Na STLMLC STLMLC [id number] 2 Common 13:57:02 [facility] 2021-09-06 Outpatient Alcantara, Na STLMLC STLMLC [id number] 2 Common 13:49:11 [facility] 2021-09-06 Outpatient Alcantara, Na STLMLC STLMLC [id number] Common 13:43:12 [facility] 2021-09-06 Outpatient Alcantara, Na STLMLC STLMLC [id number] Common 13:36:33 [facility] 2021-09-06 Outpatient Per, STLMLC STLMLC [id number] Common 13:36:00 Debra [facility] 2021-09-06 Outpatient Per, STLMLC STLMLC [id number] Common 13:35:24 Debra [facility] 2021-09-06 Outpatient Per, STLMLC STLMLC [id number] Common 13:18:13 Debra 60614 [facility] 2021-09-06 Outpatient Per, STLMLC STLMLC [id number] Common 12:49:59 Debra 78458 [facility] 2021-09-06 Outpatient Per, STLMLC STLMLC [id number] Common 12:48:55 Debra 08318 [facility] 2021-09-06 Outpatient Per, STLMLC STLMLC [id number] Common 12:23:33 Debra 67799 [facility] 2021-09-06 Outpatient Per, STLMLC STLMLC [id number] Common 12:22:39 Debra 38175 [facility] 2021-09-06 Outpatient Per, STLMLC STLMLC [id number] Common 12:14:12 Debra 37813 [facility] 2021-09-06 Outpatient Per, STLMLC STLMLC [id number] Common 12:13:33 Debra 21093 [facility] 2021-09-06 Outpatient Per, STLMLC STLMLC [id number] Common 12:11:55 Debra 68800 [facility] 2021-09-06 Outpatient Per, STLMLC STLMLC [id number] Common 12:08:21 Debra 52681 [facility] 2021-09-06 Outpatient Per, STLMLC STLMLC [id number] Common 12:07:21 Debra 43065 [facility] 2021-09-06 Outpatient Per, STLMLC STLMLC [id number] Common 12:03:50 Debra 88580 [facility] 2021-09-06 Outpatient Per, STLMLC STLMLC [id number] Common 12:02:55 Debra 88787 [facility] 2021-09-06 Outpatient Per, STLMLC STLMLC [id number] Common 12:01:14 Debra 82596 [facility] 2021-09-06 Outpatient STLMLC STLMLC [id number] Common 12:00:30 39623 [facility] 2021-09-06 Outpatient Millender, STLMLC STLMLC [id number] Common 11:16:38 Radha 35620 [facility] 2021-09-06 Outpatient SERENITY Lux [facility] [id number] 11:07:19 Radha 29660 [facility] 2021-09-06 Outpatient SERENITY Lux [facility] [id number] Common 10:58:12 Radha 78289 [facility] 2023-05-07 2023-05-07 Outpatient R TARAH [facility] [id number] Univers 15:30:00 15:30:00 RENÉ [facility] 2023-03-19 2023-03-19 [facility] [id number] Univers 13:00:00 13:00:00 [facility] 2023-01-30 2023-01-30 Outpatient R AUNG CONLEY [facility] [id number] Univers 15:30:00 15:30:00 AUNG CONLEY [facility] 2023-01-30 2023-01-30 Orders Doctor KEITH 1.2.840.114 [id number] Univers 00:00:00 00:00:00 Only Unassigned, ENMA 350.1.13.10 [facility] 4.2.7.2.686 Aiden as [phone] [address] 2022-12-10 2022-12-[address] [facility] 1.2.840.114 [id number] Univers 00:00:00 00:00:00 HEALTH 350.1.13.10 it y of [place] 4.2.7.2.686 Aiden as JOHN?BLEA [id number] [address] MEDICAL OFFICE [facility] 2022-10-29 2022-10-29 [facility] 1.2.840.114 [id number] Univers 00:00:00 00:00:00 [facility] 350.1.13.10 [facility] 4.2.7.2.686 Aiden as JOHN?BLEA [phone] [address] MEDICAL OFFICE [facility] 2022-10-222022-10-22 Telephone Aung Conley [facility] 1.2.006.934 [id number] Univers 00:00:00 00:00:00 HEALTH 350.1.13.10 it y of [place] 4.2.7.2.686 Aiden as JOHN?BLEA [id number] [address] MEDICAL OFFICE [facility] 2022-09-26 2022-09-26 Outpatient R AUNG CONLEY [facility] [id number] Univers 10:30:00 11:04:16 AUNG CONLEY ity [facility] 2022-09-26 2022-09-26 [facility] 1.2.840.114 [id number] Univers 10:30:00 11:04:16 Visit HEALTH 350.1.13.10 it y of [place] 4.2.7.2.686 Aiden as JOHN?BLEA [id number] [address] MEDICAL OFFICE [facility] 2022-09-26 2022-09-26 Orders Doctor KEITH 1.2.840.114 [id number] Univers 00:00:00 00:00:00 Only Unassigned, ENMA 350.1.13.10 ity of [place] [facility] 4.2.7.2.686 Aiden as [phone] [address] 2022-09-05 2022-09-05 (PROC) [facility] [id number] Co mmon 00:00:00 00:00:00 Procedure Spir it - [facility] 2022-08-21 2022-08-21 Outpatient R BRUNO [facility] [id number] Univers 14:30:00 14:30:00 WENTONG ity [facility] 2022-08-20 2022-08-20 Letter [facility] 1.2.840.114 [id number] Univers 00:00:00 00:00:00 (Out) Wentong HEALTH 350.1.13.10 it y of [place] 4.2.7.2.686 Aiden as JOHN?BLEA [id number] [address] MEDICAL OFFICE [facility] 2022-07-19 2022-07-19 OFFICE [facility] [id number] Co mmon 00:00:00 00:00:00 VISIT EST Spir it PT LEVEL 3 - [facility] 2022-07-13 2022-07-13 OFFICE STLMLC STLMLC [id number] Co mmon 00:00:00 00:00:00 VISIT EST Spir it PT LEVEL 3 - [facility] 2022-07-09 2022-07-09 OFFICE STLMLC STLMLC [id number] Co mmon 00:00:00 00:00:00 VISIT EST Spir it PT LEVEL 3 - [facility] 2022-07-02 2022-07-02 (TEL) STLMLC STLMLC [id number] Co mmon 00:00:00 00:00:00 [facility] 2022-06-25 2022-06-25 (TEL) STLMLC STLMLC [id number] Co mmon 00:00:00 00:00:00 [facility] 2022-06-20 2022-06-23 Hospital Dmitri Mckay 1.2.840.1 10 [id number] Methodi 22:53:00 13:26:00 Encounter Cody Christian 67346.1.1 2 75 Kalpesh Akhtar 3.430.2.7 Hospita .3.111065 l .8 2022-06-20 2022-06-23 [facility] 981 [id number] 452 [place] 00:00:00 00:00:00 [facility] [address] 2022-06-22 2022-06-22 Anesthesia Sai Adams 1.2.840.1 [id number] Methodi 11:49:00 12:15:00 Event Dmitri 18174.1.[address] 3.430.2.7 Hospit a .3.534821 l .8 2022-06-22 2022-06-22 Surgery Preston Cabrera 1.2.840.1 [id number] 21 [id number] Methodi 11:20:00 11:50:[address] 3.430.2.7 Hospit a .3.170597 l .8 2022-05-21 2022-05-21 OFFICE STLMLC STLMLC [id number] Co mmon 00:00:00 00:00:00 VISIT EST Spir it PT LEVEL 3 - [facility] 2022-05-15 2022-05-15 Outpatient SFA SFA [id number] Wes 10:31:54 10:31:54 39983 F Faraz 2022-04-19 2022-04-19 (TEL) STLMLC STLMLC [id number] Co mmon 00:00:00 00:00:00 Spirit - [facility] 2022-04-19 2022-04-19 SUB ANNUAL STLMLC STLMLC [id number] Common 00:00:00 00:00:00 MCR [facility] WELLNESS - CHI VISIT [facility] 2022-04-19 2022-04-19 OFFICE STLMLC STLMLC [id number] Co mmon 00:00:00 00:00:00 VISIT Spirit ESTAB PT - CHI LEVEL 4 [facility] 2022-03-21 2022-03-21 (TEL) STLMLC STLMLC [id number] Co mmon 00:00:00 00:00:00 Spirit [facility] 2022-02-13 2022-02-13 Outpatient R BRUNO [facility] [id number] Univers 16:00:00 16:31:29 [facility] 2022-02-13 2022-02-13 [facility] 1.2.840.114 [id number] Univers 16:00:00 16:31:29 Visit [facility] 350.1.13.10 it y of [place] 4.2.7.2.686 Aiden as JOHN?BLEA [id number] [address] MEDICAL OFFICE [facility] 2022-02-13 2022-02-13 Outpatient R BRUNO [facility] [id number] Univers 16:00:00 16:00:00 [facility] 2022-01-31 2022-01-31 NON-BILLAB STLMLC STLMLC [id number] Common 00:00:00 00:00:00 LE VISIT Spiri t [facility] 2022-01-16 2022-01-16 NON-BILLAB STLMLC STLMLC [id number] Common 00:00:00 00:00:00 LE VISIT Spiri t - [facility] 2022-01-10 2022-01-10 OL DIG E/M STLMLC STLMLC [id number] Common 00:00:00 00:00:00 [facility] 11-20 Spir it MIN [facility] 2022-01-03 2022-01-03 (TEL) STLMLC STLMLC [id number] Co mmon 00:00:00 00:00:00 [facility] 2022-01-02 2022-01-02 (TEL) STLMLC STLMLC [id number] Co mmon 00:00:00 00:00:00 [facility] 2021-12-29 2021-12-29 Refill Bruno [facility] 1.2.840.114 [id number] Univers 00:00:00 00:00:00 [facility] 350.1.13.10 it y of [place] 4.2.7.2.686 Aiden as JOHN?BLEA [phone] [address] MEDICAL OFFICE [facility] 2021-12-29 2021-12-29 (TEL) STLMLC STLMLC [id number] Co mmon 00:00:00 00:00:00 [facility] 2021 2021 (TEL) STLMLC STLMLC [id number] Co mmon 00:00:00 00:00:00 [facility] 2021-12-15 2021-12-15 (TEL) STLMLC STLMLC [id number] Co mmon 00:00:00 00:00:00 [facility] 2021-12-12 2021-12-12 (TEL) STLMLC STLMLC [id number] Co mmon 00:00:00 00:00:00 [facility] 2021-12-07 2021-12-07 OFFICE STLMLC STLMLC [id number] Co mmon 00:00:00 00:00:00 VISIT EST Spir it PT LEVEL 3 - [facility] 2021-12-05 2021-12-05 (TEL) STLMLC STLMLC [id number] Co mmon 00:00:00 00:00:00 [facility] 2021-11-29 2021-11-29 (TEL) STLMLC STLMLC [id number] Co mmon 00:00:00 00:00:00 [facility] 2021-11-28 2021-11-28 (TEL) STLMLC STLMLC [id number] Co mmon 00:00:00 00:00:00 [facility] 2021-11-07 2021-11-07 (TEL) STLMLC STLMLC [id number] Co mmon 00:00:00 00:00:00 [facility] 2021-11-07 2021-11-07 (TEL) STLMLC STLMLC [id number] Co mmon 00:00:00 00:00:00 [facility] 2021-11-07 2021-11-07 (TEL) STLMLC STLMLC [id number] Co mmon 00:00:00 00:00:00 [facility] 2021-11-01 2021-11-01 OFFICE STLMLC STLMLC [id number] Co mmon 00:00:00 00:00:00 VISIT NEW Spir it PT LEVEL 3 [facility] 2021-10-10 2021-10-10 Orders Doctor KEITH 1.2.840.114 [id number] Univers 00:00:00 00:00:00 Only Unassigned, ENMA 350.1.13.10 [facility] 4.2.7.2.686 [place] as [phone] [place] [address] [address] 2021-10-03 2021-10-03 OFFICE STLMLC STLMLC [id number] Co mmon 00:00:00 00:00:00 VISIT EST Spir it PT LEVEL 3 [facility] 2021-09-29 2021-09-29 (TEL) STLMLC STLMLC [id number] Co mmon 00:00:00 00:00:00 [facility] 2021-09-12 2021-09-12 [facility] [id number] Univers 16:00:00 16:50:29 [facility] 2021-09-12 2021-09-12 [facility] 1.2.840.114 [id number] Univers 16:00:00 16:50:29 Visit [facility] 350.1.13.10 it y of [place] 4.2.7.2.686 Aiden as JOHN?BLEA [phone] [address] OFFICE [facility] 2021-09-12 2021-09-12 Outpatient R [facility] [id number] Univers 16:00:00 16:50:29 [facility] 2021-09-12 2021-09-12 Orders Doctor KEITH 1.2.840.114 [id number] Univers 00:00:00 00:00:00 Only Unassigned, ENMA 350.1.13.10 [facility] 4.2.7.2.686 Aiden as [phone] [address] 2021-08-25 2021-08-25 OFFICE STLMLC STLC [id number] Co mmon 00:00:00 00:00:00 VISIT EST Spir it PT LEVEL 3 [facility] 2021-08-10 2021-08-10 [facility] 1.2.840.114 [id number] Univers 00:00:00 00:00:00 [facility] 350.1.13.10 i [place] [phone] [address] 2021-08-08 2021-08-08 Outpatient R [facility] [id number] Univers 14:00:00 14:00:00 [facility] 2021-07-27 2021-07-27 OFFICE STLMLC STLMLC [id number] Co mmon 00:00:00 00:00:00 VISIT EST Spir it PT LEVEL 3 - [facility] 2021-07-14 2021-07-14 Orders Doctor PARKER 1.2.840.114 [id number] Univers 00:00:00 00:00:00 Only Unassigned, ENMA 350.1.13.10 ity of [place] [facility] 4.2.7.2.686 Aiden as [phone] [facility] [address] 2021-07-13 2021-07-13 Telephone Bruno, [facility] 1.2.875.914 [id number] Univers 00:00:00 00:00:00 Ducong [place] 350.1.13.10 i [place] [phone] [facility] 220 [facility] 2021-05-17 2021-05-17 Refill Jovel, [facility] 1.2.840.114 [id number] Univers 00:00:00 00:00:00 Ducong MULTISPEC 350.1.13.10 ity of [facility] 4.2.7.2.686 [facility] [phone] [facility] AND [address] [facility] 2021-05-12 2021-05-12 Refill Bruno, [facility] 1.2.840.114 [id number] Univers 00:00:00 00:00:00 [facility] 350.1.13.10 [facility] 4.2.7.2.686 [facility] [phone] [facility] AND [address] [facility] 2021-04-26 2021-04-26 OL DIG E/M [facility] [id number] Common 00:00:00 00:00:00 [facility] 11-20 Spir it MIN [facility] 2021-03-21 2021-03-21 Outpatient [facility] [id number] Common 00:00:00 00:00:00 Spirit [facility] 2021-03-15 2021-03-15 Refill Jovel, [facility] 1.2.840.114 [id number] Univers 00:00:00 00:00:00 Janet Troy 350.1.13.10 i ty of [place] [phone] [facility] 220 [facility] 2021-02-16 2021-02-16 Telephone Jovel, [facility] 1.2.913.963 [id number] Univers 00:00:00 00:00:00 Janet Troy 350.1.13.10 i ty of [place].2.[place] [phone] Sd dic[address] 2021-02-13 2021-02-13 [facility] 1.2.840.114 [id number] Univers 00:00:00 00:00:00 Janet Troy 350.1.13.10 i ty of [place]2.[place] [phone] [address] 2021-02-13 2021-02-13 Refill [facility] 1.2.840.114 [id number] Univers 00:00:00 00:00:00 aJnet [place] 350.1.13.10 i ty of [place] [phone] [address] 2021-02-12 2021-02-12 Orders Doctor KEITH 1.2.840.114 [id number] Univers 00:00:00 00:00:00 Only Unassigned, ENMA 350.1.13.10 ity of [place] [facility] 4.2.7.2.686 Aiden as [phone] [address] 2021-02-01 2021-02-01 Office [facility] 1.2.840.114 [id number] Univers 13:39:29 14:33:26 Visit Janet Troy 350.1.13.10 i ty of [place] 4[place].2.[place] [phone] [address] 2021-02-01 2021-02-01 [facility] [id number] [facility] 13:30:00 13:30:00 JANET hebert [facility] 2021-01-30 2021-01-30 Outpatient [facility] [id number] 705 [place] 00:00:00 00:00:00 NARA [address] 2021-01-27 2021-01-27 Outpatient [facility] [id number] 310 [place] 00:00:00 00:00:00 NARA [address] 2021-01-16 2021-01-16 Refill Jovel, [facility] 1.2.840.114 [id number] [facility] 00:00:00 00:00:00 Wentong [place] 350.1.13.10 i ty of [place] [phone] Sd dical nal [address] [place] [address] 2021-01-14 2021-01-14 Refill Jovel, [facility] 1.2.840.114 [id number] 98 [facility] 00:00:00 00:00:00 Wentong [place] 350.1.13.10 i ty of [place]2.[place] [phone] Sd dic[address] 2021-01-13 2021-01-13 Outpatient STLMLC STLMLC [id number] Common 00:00:00 00:00:00 [facility] 2021-01-05 2021-01-06 Emergency [place] [id number] [place] [address] 00:00:00 00:00:00 IGOR [address] 2020-12-09 2020-12-09 Outpatient STLMLC STLMLC [id number] Common 00:00:00 00:00:00 [facility] 2020-12-05 2020-12-05 Refill Jovel, [facility] 1.2.840.114 [id number] [facility] 00:00:00 00:00:00 Wentong [place] 350.1.13.10 i ty of [place] 4[place].2.[place] [phone] Sd dical nal [address] [place] [address] 2020-12-01 2020-12-01 Outpatient STLMLC STLMLC [id number] Common 00:00:00 00:00:00 [facility] 2020-11-28 2020-11-28 Refill Jovel, [facility] 1.2.840.114 [id number] [facility] 00:00:00 00:00:00 Wentong MULTISPEC 350.1.13.10 [place] C[place] [phone] [facility] AND [place] [address] [facility] 2020-11-21 2020-11-21 Telephone Bruno, [facility] 1.2.635.651 [id number] Univers 00:00:00 00:00:00 Ducong [place] 350.1.13.10 i ty of [place] 4[place] [phone] Sd dical [facility] 220 [facility] 2020-11-03 2020-11-03 [facility]phone [facility] 1.2.700.271 [id number] Univers 00:00:00 00:00:00 Wentong MULTISPEC 350.1.13.10 ity of [facility] 4.2.7.2.[place] [phone] [facility] AND [place] [address] [facility] 2020-10-31 2020-10-31 Orders Doctor KEITH 1.2.840.114 [id number] Univers 00:00:00 00:00:00 Only Unassigned, ENMA 350.1.13.10 [facility] 4.2.7.2.686 Aiden as [phone] [facility] [address] 2020-10-27 2020-10-27 Outpatient ST[facility] [id number] Common 00:00:00 00:00:00 [facility] 2020-10-26 2020-10-26 [facility]ill [facility] 1.2.840.114 [id number] Univers 00:00:00 00:00:00 Janet Troy 350.1.13.10 i ty of [place] [phone] Sd dical nal 220 [facility] 2020-10-19 2020-10-19 Patient Leo [facility] 1.2.840.114 [id number] Univers 00:00:00 00:00:00 Outreach Willy PRIMARY 350.1.13.10 i ty of [place] [facility] 4.2.7.2.[place] [phone] Sd dicva [address] 2020-09-05 2020-09-05 Outpatient STLMLC STLMLC [id number] Common 00:00:00 00:00:00 [facility] 2020-09-01 2020-09-01 Outpatient ST[facility]C [facility] [id number] Common 00:00:00 00:00:00 [facility] 2020-08-21 2020-08-21 Orders Doctor KEITH 1.2.840.114 [id number] 00:00:00 00:00:00 Only Unassigned, ENMA 350.1.13.10 [place] [facility] 4.2.7.2.686 [id number] 009 2020-08-21 2020-08-21 Orders Doctor KEITH 1.2.840.114 [id number] Univers 00:00:00 00:00:00 Only Unassigned, ENMA 350.1.13.10 ity of [place] [facility] 4.2.7.2.686 Aiden as [phone] [address] 2020-08-19 2020-08-19 Telephone Jovel, [facility] 1.2.101.724 [id number] 00:00:00 00:00:00 Janet Ayala 350.1.13.10 [place] 4.2.7.2.686 Professio [phone] [facility] [address] [facility] 2020-08-19 2020-08-19 Telephone Jovel, [facility] 1.2.300.195 [id number] 2651 Univers 00:00:00 00:00:00 Janet Ayala 350.1.13.10 i ty of [place] [phone] Sd dical [address] 2020-08-10 2020-08-10 Telephone Christiano, [facility] 1.2.172.880 [id number] 00:00:00 00:00:00 Kvng Ayala 350.1.13.10 [place] 4.2.7.2.686 Professio [phone] [address] 2020-08-10 2020-08-10 Orders Doctor KEITH 1.2.840.114 [id number] 00:00:00 00:00:00 Only Unassigned, ENMA 350.1.13.10 [place] [facility] [id number] 009 2020-08-10 2020-08-10 Telephone Christiano, [facility] 1.2.428.296 [id number] Univers 00:00:00 00:00:00 Ruslancindy [place] 350.1.13.10 ity of [place] 4.2.7.2.686 Patricio Deshpande [phone] Sd dical [facility] 059 [facility] 2020-08-10 2020-08-10 Orders Doctor PARKER 1.2.840.114 [id number] Univers 00:00:00 00:00:00 Only Unassigned, ENMA 350.1.13.10 [facility] 4.2.7.2.686 Aiden as [phone] [address] 2020-08-10 2020-08-10 Outpatient STLMLC STLMLC [id number] Common 00:00:00 00:00:00 [facility] 2020-08-04 2020-08-04 Outpatient STLMLC STLMLC [id number] Common 00:00:00 00:00:00 [facility] 2020-08-03 2020-08-03 Outpatient STLMLC STLMLC [id number] Common 00:00:00 00:00:00 [facility] 2020-08-03 2020-08-03 Outpatient STLMLC STLMLC [id number] Common 00:00:00 00:00:00 [facility] 2020-08-02 2020-08-02 Outpatient STLMLC STLMLC [id number] Common 00:00:00 00:00:00 [facility] 2020-07-26 2020-07-26 Outpatient STLMLC STLMLC [id number] Common 00:00:00 00:00:00 [facility] 2020-07-21 2020-07-21 Orders Doctor PARKER 1.2.840.114 [id number] 00:00:00 00:00:00 Only Unassigned, ENMA 350.1.13.10 [place] [facility] 4.2.7.2.686 [id number] 009 2020-07-21 2020-07-21 Orders Doctor PARKER 1.2.840.114 [id number] Univers 00:00:00 00:00:00 Only Unassigned, ENMA 350.1.13.10 ity of [place] [facility] 4.2.7.2.686 Aiden as [phone] [address] 2020-07-19 2020-07-19 Office [facility] 1.2.840.114 [id number] 13:46:13 15:13:39 Visit Janet Troy 350.1.13.10 [place] 4.2.7.2.686 Professio [phone] [address] 2020-07-19 2020-07-19 Office [facility] 1.2.840.114 [id number] Univers 13:46:13 15:13:39 Visit Janet Troy 350.1.13.10 i [place] [phone] [address] 2020-07-19 2020-07-19 Outpatient R [facility] [id number] Univers 14:00:00 14:00:00 [place] ity [facility] 2020-07-14 2020-07-14 Refill [facility] 1.2.840.114 [id number] Univers 00:00:00 00:00:00 Janet Troy 350.1.13.10 i ty [place] [phone] [address] 2020-07-13 2020-07-13 Outpatient [facility] ST[facility] [id number] Common 00:00:00 00:00:00 [facility] 2020-07-11 2020-07-11 Outpatient [facility]ML[facility] ST[facility] [id number] Common 00:00:00 00:00:00 [facility] 2020-07-05 2020-07-05 Outpatient STLMLC STLMLC [id number] Common 00:00:00 00:00:00 [facility] 2020-07-04 2020-07-04 [facility] [id number] Univers 00:00:00 00:00:00 Ducong Troy 350.1.13.10 i ty [place] [phone] [address] 2020-07-04 2020-07-04 Orders Doctor KEITH 1.2.840.114 [id number] Univers 00:00:00 00:00:00 Only Unassigned, ENMA 350.1.13.10 [facility] 4[facility].7.2.686 [place] as [phone] [address] 2020-06-23 2020-06-23 Outpatient [facility]MLC ST[facility] [id number] Common 00:00:00 00:00:00 [facility] 2020-06-21 2020-06-21 Outpatient STLMLC STL[facility] [id number] Common 00:00:00 00:00:00 [facility] 2020-06-13 2020-06-13 [facility] 1.2.840.114 [id number] Univers 00:00:00 00:00:00 Janet Ayala 350.1.13.10 i [place] [phone] [address] 2020-03-25 2020-03-25 Refill Bruno HIMASSIMO 1.2.840.114 [id number] Univers 00:00:00 00:00:00 Janet Ayala 350.1.13.10 i ty [place] [phone] [address] 2020-03-22 2020-03-22 Outpatient R [facility] [id number] Univers 09:30:00 09:30:00 ity of [facility] 2020-03-16 2020-03-16 [facility] 1.2.840.114 [id number] Univers 08:44:01 10:50:35 Visit Janet Ayala 350.1.13.10 i [place] 4[place] [phone] [address] 2020-03-16 2020-03-16 [facility] [facility] [id number] Univers 09:30:00 09:30:00 WENTONG ity of [facility] 2020-03-16 2020-03-16 Orders Doctor KEITH [id number] Univers 00:00:00 00:00:00 Only Unassigned, ENMA [id number] ity of [facility] [id number] Aiden as [phone] [address] 2020-03-03 2020-03-03 Telephone [facility] [id number] Univers 00:00:00 00:00:00 Janet Troy [id number] i [id number] [phone] Sd dical nal [address] [place] [address] 2020-02-08 2020-02-08 [facility] [id number] Univers 00:00:00 00:00:00 Janet Troy [id number] i ty [id number] [phone] Sd dical nal [address] [place] [address] 2020-01-27 2020-01-27 Outpatient R [facility] [id number] Univers 13:00:00 13:00:00 [facility] 2019-12-29 2019-12-29 Telephone [facility] [id number] Univers 00:00:00 00:00:00 Janet Troy [id number] i ty [place] [phone] Sd dical nal [address] [place] [address] 2019-11-16 2019-11-16 [facility] [id number] Common 21:46:00 21:46:00 [facility] it Road [facility] 2019-11-16 2019-11-16 [facility] [id number] Common 11:00:00 11:00:00 [facility] it Road [facility] 2019-10-21 2019-10-21 Nurse KEITH Cedeno [id number] Univers 00:00:00 00:00:00 Triage Harriett NORWOOD 350.1.13.10 it y of [facility] 4.2.7.2.686 Aiden as [phone] [facility] [address] 2019-10-03 2019-10-03 Orders Doctor KEITH [id number] Univers 00:00:00 00:00:00 Only Unassigned, ENMA 350.1.13.10 ity of [place] [facility] 4.2.7.2.686 Aiden as [phone] [facility] [address] 2019-09-23 2019-09-23 [facility] [id number] [facility] 12:00:21 14:11:36 Visit Janet Ayala 350.1.13.10 i ty [place] [phone] Me dical nal [address] 2019-08-17 2019-08-17 [facility] [id number] Common 21:59:00 21:59:00 t [facility] [address] [facility] 2019-08-17 2019-08-17 [facility] [id number] Common 10:45:00 10:45:00 t [facility] [address] [facility] 2019-07-08 2019-07-08 [facility] [id number] Common 16:20:00 16:20:[address] [facility] 2019-07-07 2019-07-07 [facility] [id number] Common 17:00:00 17:00:[address] [facility] 2019-06-12 2019-06-12 [facility] [id number] Common 13:23:00 13:23:[address] [facility] 2019-05-01 2019-05-01 [facility] [id number] Common 15:10:00 15:10:[address] [facility] 2019-04-16 2019-04-16 Telephone JovelGILLETTE, [facility] [id number] Univers 00:00:00 00:00:00 Janet Ayala 350.1.13.10 i [place] [phone] Sd dical nal [address] 2019-04-01 2019-04-01 [facility] [id number] Univers 00:00:00 00:00:00 Shaila Ayala 350.1.13.10 i ty of [id number] [phone] Sd dical nal [address] [facility] 2019-02-24 2019-02-24 [facility] [id number] Common 09:00:00 09:00:[address] [facility] 2018-08-27 2018-08-27 [facility] [id number] Common 14:30:00 14:30:[address] [facility] 2018-05-24 2018-05-24 [facility] [id number] Common 01:17:00 01:17:[address] [facility] 2018-05-24 2018-05-24 [facility] [id number] Common 00:43:00 00:43:[address] [facility] 2018-05-23 2018-05-23 [facility] [id number] Common 10:00:00 10:00:[address] [facility] 2018-04-30 2018-04-30 [facility] [id number] Common 09:49:00 09:49:[address] [facility] 2018-03-24 2018-03-24 [facility] [id number] Common 17:24:00 17:24:[address] [facility] 2018-02-25 2018-02-25 [facility] [id number] Common 13:33:00 13:33:[address] [facility] 2018-02-21 2018-02-21 [facility] [id number] Common 16:46:00 16:46:[address] [facility] 2018-02-20 2018-02-20 [facility] [id number] Common 19:27:00 19:27:[address] [facility] 2018-02-20 2018-02-20 [facility] [id number] Common 14:15:00 14:15:[address] [facility] 2018-01-16 2018-01-16 [facility] [id number] Common 13:04:00 13:04:[address] [facility] 2017-11-14 2017-11-14 [facility] [id number] Common 11:30:00 11:30:[address] [facility] 2017-11-11 2017-11-11 [facility] [id number] Common 14:51:00 14:51:[address] [facility] Results Test Description Test Time Test Comments Results Result Comments Source POCT HEMOGLOBIN A1C TEST 2022-09-26 16:18:00 Test Item Value Reference Range Interpretation Comme nts POCT HBA1C (test code = 4548-4) 7.8 % 4-6 A Lab Interpretation (test code = 68046-2) [facility]normal [facility] [id number] 16:18:00 Test Item Value Reference Range Interpretation Comments POCT HBA1C (test code = 4548-4) 7.8 % 4-6 A Lab Interpretation (test code = Abnormal 06769-9) [facility] [id number] 18:26:30 Test Item Value Reference Range Interpretation Comments Case number (test code = [id number]) Surgical pathology See link below for report (test code = PDF Lab Report [id number]) Result status (test code This is Final Report = [id number]) for [id number] [facility] [id number] 17:45:00 Test Item Value Reference Range Interpretation Comments POC glucose (test code 269 mg/dL 65-99 H Opera tor Name: = 73741-4) Anne Marie Riggins Device ID: [id number] Lab Interpretation Abnormal (test code = 92948-9) [facility] 2 [id number] 15:22:00 Test Item Value Reference Range Interpretation Comments Product name (test code Red Blood Cells -1, = 25) Leukored Unit number (test code [id number] = 3576262) Product code (test code S8636L05 = 3092) Dispense status (test Transfused code = 24) Blood expiration date (test code = 302) Blood type code (test 7300 code = 308) Blood type (test code = B POSITIVE 1314) Compatibility (test Compatible code = 6400) VIVI (test code = VIVI) LAB: +PATIENT ID VERIFIEDHIS: +PATIENT ID VERIFIED [facility] RNA [Presence] in Respiratory specimen by JANETT with probe [id number] 05:29:52 Test Item Value Reference Range Interpretation Comments SARS-CoV-2 (COVID-19) RNA Not detected [Presence] in Respiratory specimen by JANETT with probe detection (test code = 31132-8) Whether patient is employed in a Unknown healthcare setting (test code = 62263-7) Whether the patient has symptoms Unknown related to condition of interest (test code = 96528-4) Whether the patient was Unknown hospitalized for condition of interest (test code = 27860-7) Whether the patient was admitted Unknown to intensive care unit (ICU) for condition of interest (test code = 93538-0) Whether patient resides in a Unknown congregate care setting (test code = 87611-5) status (test code = Unknown 91390-6) Date and time of symptom onset Unknown (test code = 46925-8) [facility] HEMOGLOBIN A1C [id number] 20:57:00 Test Item Value Reference Range Interpretation Comments POCT HBA1C (test code = 4548-4) 7.5 % 4-6 A Lab Interpretation (test code = Abnormal 49156-8) [facility] RNA [Presence] in Respiratory specimen by JANETT with probe [id number] 22:34:32 Test Item Value Reference Range Interpretation Comments SARS-CoV-2 (COVID-19) RNA Not detected Not-Detected [Presence] in Respiratory specimen by JANETT with probe detection (test code = 79576-6) Whether patient is employed in a healthcare setting (test code = 37918-5) Whether the patient has symptoms related to condition of interest (test code = 22604-0) Patient was hospitalized because of this condition (test code = 61554-2) Whether the patient was admitted to intensive care unit (ICU) for condition of interest (test code = 75488-1) Whether patient resides in a congregate care setting (test code = 17654-7) ALEJANDRO AHUJA
[2023-02-02] MEDS ORDERED: NA CHLORIDE 0.9% 1,000 ML ONE (19:32)
[2023-02-02 19:48] LABS: Absolute Lymphocytes (CBC) 1.8 K/uL (0.7-4.9); Hematocrit 43.3 % (39.6-49.0); Lymphocytes % 13.9 % (15.3-44.8); MCV 85.9 fL (80-100); MPV 7.6 fL (7.6-11.3); RBC Red Blood Cell Count 5.04 M/uL (4.33-5.43)
[2023-02-02 19:56] LABS: Potassium 4.2 mEq/L (3.5-5.1)
--- NOTE | 2023-02-02 20:04 | RAD REPORT ---
EXAM DESCRIPTION: CT - Head C Spine Cap Darshana Cordero - 02/02/2023 7:45 pm CLINICAL HISTORY: Head and neck injury with chest and abdominal pain status post fall. Head and neck pain . TECHNIQUE: Computed axial tomography of the head and cervical spine was obtained Computed axial tomography of the chest, abdomen and pelvis was obtained. 100 cc Isovue-300 was given intravenously coronal and sagittal reconstruction was performed. All CT scans are performed using dose optimization technique as appropriate and may include automated exposure control or mA/KV adjustment according to patient size. COMPARISON: 2016 and 2021 FINDINGS: An intracranial bleed is not seen. The ventricles are normal in caliber. An extra-axial fl uid collection is not noted. Fluid within the sinuses is not seen A cervical fracture is not seen. No dislocation is seen. A mediastinal hematoma is not noted. A pleural effusion is not present. A lung contusion is not seen. The liver, spleen, pancreas, adrenals, kidneys and bladder do not demonstrate an acute traumatic inju ry 9 centimeter hematoma soft tissues right lateral hip. Curvilinear area of increased density active e xtravasation of contrast. IMPRESSION: No acute intracranial abnormality is seen A cervical fracture is not visualized. If the patient continues have symptoms to suggest intracranial /spinal cord pathology then MRI would be recommended. No acute traumatic injury involving the chest/abdomen. 9 centimeter hematoma soft tissues right lateral hip with active bleeding
[2023-02-02] MEDS ORDERED: MORPHINE 4 MG/ML SYR ONE ×2 (20:08→21:26)
[2023-02-02] MEDS ORDERED: ONDANSETRON 4 MG/2 ML VIAL ONE (20:08)
--- NOTE | 2023-02-02 20:52 | EDPHYS ---
Physician Documentation [facility] Name: Favio Solomon Jr Age: 67 yrs Sex: Male : 1955 Arrival Date: 02/02/2023 Time: 19:00 Bed 3 Private MD: ED Physician Puma Swain HPI: 02/02 19:43 This 67 yrs old Male presents to ER via Wheelchair with complaints of Fall ms3 Injury. 19:43 67-year-old male presents status post 14 foot fall from scaffolding at 3:30 PM. Patient ms3 states the ladder shifted causing him to fall. Patient is complaining of right hip pain. Patient denies alleviating factors. Patient denies loss of consciousness. Patient endorses back, neck, head pain. Patient states his pain is severe. Patient states he is on aspirin and Plavix.. Historical: - Allergies: 19:45 benazepril; pf1 19:45 Farxiga; pf1 19:45 Lisinopril; pf1 19:45 Lotrel; pf1 - Home Meds: 19:45 Tresiba FlexTouch U-100 100 unit/mL (3 mL) subcutaneous inpn 60 units 2 times per day pf1 [Active]; Novolog Sub-Q 10 units 3 times per day [Active]; - PMHx: 19:45 Diabetes - IDDM; Hypertension; AL; stroke; pf1 - Immunization history:: Adult Immunizations up to date. - Immunization history: Last tetanus immunization: - up to date. - Social history:: Smoking status: Patient denies any tobacco usage or history of. ROS: 19:43 Constitutional: Negative for fever, and chills. Neck: Negative for injury, pain, and ms3 swelling, Cardiovascular: Negative for chest pain, and palpitations. Respiratory: Negative for shortness of breath, cough, wheezing, and pleuritic chest pain, Abdomen/GI: Negative for abdominal pain, nausea, vomiting, diarrhea, and constipation. 19:43 MS/extremity: Positive for contusion, of the Right hip. 19:43 All other systems are negative. Exam: 19:43 Constitutional: This is a well developed, well nourished patient who is awake, alert, ms3 and in no acute distress. Head/Face: Normocephalic, atraumatic. Neck: Trachea midline, no cervical lymphadenopathy. Supple, full range of motion without nuchal rigidity, or vertebral point tenderness. No Meningismus. Chest/axilla: Normal chest wall appearance and motion. Nontender with no deformity. Cardiovascular: Regular rate and rhythm with a normal S1 and S2. No gallops, murmurs, or rubs. Normal PMI, no JVD. No pulse deficits. Respiratory: Lungs have equal breath sounds bilaterally, clear to auscultation and percussion. No rales, rhonchi or wheezes noted. No increased work of breathing, no retractions or nasal flaring. Abdomen/GI: Soft, non-tender, with normal bowel sounds. No distension or tympany. No guarding or rebound. No evidence of tenderness throughout. Skin: Warm, dry with normal turgor. Normal color with no rashes, no lesions, and no evidence of cellulitis. 19:43 Musculoskeletal/extremity: Extremities: noted in the Right hip: contusion, pain, swelling, tenderness, noted in the Right foot: pain, tenderness. 19:46 ECG was reviewed by the Attending Physician. ms3 Vital Signs: 19:17 BP 117 / 70; Pulse 52; Resp 16; Temp 97.4(O); Pulse Ox 100% on R/A; Weight 108 kg; pf1 Height 5 ft. 7 in. ; Pain 10/10; 20:21 BP 127 / 77; Pulse 52; Resp 17 S; Pulse Ox 99% on R/A; lg3 21:11 BP 136 / 60; Pulse 56; Resp 18 S; Pulse Ox 99% on R/A; lg3 19:17 Body Mass Index 37.29 (108.00 kg, 170.18 cm) pf1 19:17 Pain Scale: Adult pf1 [place] Coma Score: 21:57 Eye Response: spontaneous(4). Motor Response: obeys commands(6). Verbal Response: lg3 oriented(5). Total: 15. Trauma Score (Adult): 21:57 Eye Response: spontaneous(1); Verbal Response: oriented(1); Motor Response: obeys lg3 commands(2); Systolic BP: > 89 mm Hg(4); Respiratory Rate: 10 to 29 per min(4); [place] Score: 15; Trauma Score: 12 MDM: 19:16 Patient medically screened. ms3 19:43 Differential diagnosis: closed head injury, contusion, fracture, multiple trauma, ms3 sprain, strain. 02/03 02:09 Data reviewed: vital signs, nurses notes, radiologic studies, CT scan, plain films, and ms3 as a result, I will Transfer patient. Consideration of Admission/Observation Transfer. Management of patient was discussed with the following: Trauma physician at [facility] Dr. Berumen. I considered the following discharge prescriptions or medication management in the emergency department Medications were administered in the Emergency Department. See MAR. Historians other than the Patient: Daughter/Son: Patient's daughter. Counseling: I had a detailed discussion with the patient and/or guardian regarding: the historical points, exam findings, and any diagnostic results supporting the discharge/admit diagnosis, lab results, radiology results, the need to transfer to another facility, for higher level of care, [facility] does not immediately have the required specialist. 02/02 19:17 Order name: Basic Metabolic Panel; Complete Time: 20:10 la3 02/02 19:17 Order name: CBC with Diff; Complete Time: 20:10 la3 02/02 19:17 Order name: Type And Screen ms3 02/02 19:17 Order name: CT Traumagram (Head C Spine CAP W Con); Complete Time: 20:10 la3 02/02 19:34 Order name: XRAY Foot RIGHT 3 View; Complete Time: 21:11 3 02/02 19:34 Order name: XRAY Pelvis; Complete Time: 21:11 3 02/02 19:17 Order name: Labs collected and sent; Complete Time: 19:37 la3 02/02 19:19 Order name: FSBS; Complete Time: 19:37 snw EC/24 19:46 Rate is 56 beats/min. Rhythm is regular. QRS [place] is Normal. [place] interval is normal. QRS ms3 interval is normal. Clinical impression: Sinus bradycardia. Interpreted by me. Reviewed by me. Administered Medications: 20:01 Drug: morphine IVP or IV 4 mg Route: IVP; Infused Over: 4 mins; Site: left forearm; lg3 21:34 Follow up: Response: No adverse reaction; No change in condition; Pain is unchanged, lg3 physician notified 20:01 Drug: Ondansetron IVP 4 mg Route: IVP; Site: left forearm; lg3 21:34 Follow up: Response: No adverse reaction; Marked relief of symptoms; Nausea is decreasedlg3 21:57 Drug: morphine IVP or IV 4 mg Route: IVP; Infused Over: 4 mins; Site: left forearm; lg3 21:57 Follow up: Response: No adverse reaction; Marked relief of symptoms lg3 Disposition Summary: 02/02/23 20:51 Transfer Ordered Transfer Location: [facility] ms3 Reason: Higher level of care ms3 Condition: Stable ms3 Problem: new ms3 Symptoms: are unchanged ms3 Accepting Physician: (02/02/23 22:00) lg3 Diagnosis - Hematoma with active extravisation ms3 - Fall (on)(from) incline ms3 - Neck pain ms3 - Low back pain ms3 - Pain in right hip ms3 Forms: - Medication Reconciliation Form ms3 - SBAR form ms3 Signatures: Dispatcher [employer] EDMS Sharla Quevedo, ELECTRON[employer] WARFARE TECHNICIAN-C ELECTRONICS WARFARE TECHNICIAN-Csnw Natalee Wells, RN RN lg3 Puma Swain DO DO ms3 Allyson Trejo RN RN pf1 Corrections: (The following items were deleted from the chart) 19:44 19:43 The history from the nurse's notes was reviewed and I agree with what is ms3 documented. ms3 22:00 20:51 ms3 lg3
--- NOTE | 2023-02-02 20:52 | ER ---
Nurse's Notes [facility] Name: Favio Solomon Jr Age: 67 yrs Sex: Male : 1955 Arrival Date: 02/02/2023 Time: 19:00 Bed 3 Private MD: Diagnosis: Hematoma with active extravisation;Fall (on)(from) incline;Neck pain;Low back pain;Pain in right hip Presentation: 02/02 19:17 Chief complaint: Patient states: Daughter stated patient fell from 14 foot from pf1 scaffolding,onset 1530 with blurred vision, diaphoretic, head pain,right hip pain with hematoma and neck pain. C-Collar applied upon arrival to ER. 19:17 Care prior to arrival: None. Mechanism of Injury: Fall scaffolding Trauma event pf1 details: Injury occurred in the [facility], Injury occurred: at home. Injury occurred: February 02, 2023 Injury occurred at: 15:30. 19:17 Acuity: [place] 2 pf1 19:17 Method Of Arrival: Wheelchair pf1 21:59 Coronavirus screen: Client denies travel out of the [place] in the last 14 days. At this lg3 time, the client does not indicate any symptoms associated with coronavirus-19. Ebola Screen: No symptoms or risks identified at this time. Initial Sepsis Screen: Does the patient meet any 2 criteria? No. Patient's initial sepsis screen is negative. Does the patient have a suspected source of infection? No. Patient's initial sepsis screen is negative. Risk Assessment: Do you want to hurt yourself or someone else? Patient reports no desire to harm self or others. Onset of symptoms was February 02, 2023 at 20:23. Trauma Activation: Stat Physician: ED Physician; Name: ; Notified At: ; Arrived At: Physician: General Surgeon; Name: ; Notified At: ; Arrived At: Physician: Radiology; Name: ; Notified At: ; Arrived At: Physician: Respiratory; Name: ; Notified At: ; Arrived At: Physician: Lab; Name: ; Notified At: ; Arrived At: Historical: - Allergies: 19:45 benazepril; pf1 19:45 Farxiga; pf1 19:45 Lisinopril; pf1 19:45 Lotrel; pf1 - Home Meds: 19:45 Tresiba FlexTouch U-100 100 unit/mL (3 mL) subcutaneous inpn 60 units 2 times per day pf1 [Active]; Novolog Sub-Q 10 units 3 times per day [Active]; - PMHx: 19:45 Diabetes - IDDM; Hypertension; [place]; stroke; pf1 - Immunization history:: Adult Immunizations up to date. - Immunization history: Last tetanus immunization: - up to date. - Social history:: Smoking status: Patient denies any tobacco usage or history of. Screenin:17 Abuse screen: Denies threats or abuse. pf1 19:17 Tuberculosis screening: No symptoms or risk factors identified. pf1 20:21 [facility] ED Fall Risk Assessment (Adult) History of falling in the last 3 months, lg3 including since admission Yes- single mechanical fall (1 pt) Confusion or Disorientation No (0 pts) Intoxicated or Sedated No (0 pts) Impaired Gait No (0 pts) Mobility Assist Device Used No (0 pt) Altered Elimination No (0 pt) Score/Fall Risk Level 0 - 2 = Low Risk Oriented to surroundings, Maintained a safe environment, Educated pt \T\ family on fall prevention, incl call for assistance when getting out of bed. Nutritional screening: No deficits noted. Primary Survey: 19:17 NO uncontrolled hemorrhage observed. pf1 19:17 A: The client is awake and alert. The airway is patent. The client responds to verbal pf1 stimuli. Airway: patent. Breathing/Chest: Spontaneous respiratory effort, equal unlabored respirations, breath sounds clear bilaterally, regular pattern, symmetrical chest rise and fall. Respiratory effort: spontaneous, unlabored, Respiratory pattern: regular, Chest inspection: symmetrical rise and fall of the chest. Circulation: No external hemorrhage present. Regular and strong central pulse, skin warm/dry/normal color. Disability Pupils are equal, round, reactive to light and accommodation. Client is alert. Exposure/Environment: All clothing and personal items were removed. Forensic evidence collection is not deemed to be indicated at this time. Items placed in patient belonging bag. There is no evidence of uncontrolled external bleeding. Obvious injury(ies) are noted at this time: right hip hematoma and right elbow contusion A warming method has been applied: A warm blanket has been provided to the patient. 21:58 Reassessment Breathing: Spontaneous respiratory effort, equal unlabored respirations, lg3 breath sounds clear bilaterally, regular pattern with symmetrical chest rise and fall. Respiratory effort Spontaneous Unlabored Breath sounds Clear. Assessment: 20:21 General: Appears in no apparent distress. uncomfortable, Behavior is calm, cooperative. lg3 Pain: Complains of pain in head, pelvis, right arm, right leg and neck. Neuro: No deficits noted. [place] Agitation-Sedation Scale (RASS): 0 - Alert and Calm Level of Consciousness is awake, alert, obeys commands, Oriented to person, place, time, situation. Cardiovascular: No deficits noted. Denies chest pain, shortness of breath, Capillary refill < 3 seconds Clubbing of nail beds is absent JVD is absent Patient's skin is warm and dry. Respiratory: No deficits noted. Airway is patent Respiratory effort is even, unlabored, Respiratory pattern is regular, symmetrical. GI: No deficits noted. No signs and/or symptoms were reported involving the gastrointestinal system. Abdomen is round non-distended. : No deficits noted. No signs and/or symptoms were reported regarding the genitourinary system. EENT: No deficits noted. No signs and/or symptoms were reported regarding the EENT system. Derm: Skin is intact, is healthy with good turgor, Skin is diaphoretic, moist, Skin is normal, Skin temperature is cool Wound noted right elbow Bruising that is dark purple, on right hip. Musculoskeletal: Reports pain in right arm and right leg. 21:11 Reassessment: Patient appears in no apparent distress at this time. No changes from lg3 previously documented assessment. Patient and/or family updated on plan of care and expected duration. Pain level reassessed. Patient is alert, oriented x 3, equal unlabored respirations, skin warm/dry/pink. Patient states feeling better. Vital Signs: 19:17 BP 117 / 70; Pulse 52; Resp 16; Temp 97.4(O); Pulse Ox 100% on R/A; Weight 108 kg; pf1 Height 5 ft. 7 in. ; Pain 10/10; 20:21 BP 127 / 77; Pulse 52; Resp 17 S; Pulse Ox 99% on R/A; lg3 21:11 BP 136 / 60; Pulse 56; Resp 18 S; Pulse Ox 99% on R/A; lg3 19:17 Body Mass Index 37.29 (108.00 kg, 170.18 cm) pf1 19:17 Pain Scale: Adult pf1 Guilherme Coma Score: 21:57 Eye Response: spontaneous(4). Motor Response: obeys commands(6). Verbal Response: lg3 oriented(5). Total: 15. Trauma Score (Adult): 21:57 Eye Response: spontaneous(1); Verbal Response: oriented(1); Motor Response: obeys lg3 commands(2); Systolic BP: > 89 mm Hg(4); Respiratory Rate: 10 to 29 per min(4); [place] Score: 15; Trauma Score: 12 ED Course: 19:06 Patient arrived in ED. es 19:09 Puma Swain DO is Attending Physician. ms3 19:17 Patient has correct armband on for positive identification. Placed in gown. Bed in low pf1 position. Call light in reach. Side rails up X2. 19:36 Triage completed. pf1 19:37 Basic Metabolic Panel Sent. lg3 19:37 CBC with Diff Sent. lg3 19:37 Type And Screen Sent. lg3 19:37 Inserted saline lock: 22 gauge in left forearm, using aseptic technique. Blood lg3 collected. 19:43 Natalee Wells, RN is Primary Nurse. lg3 19:46 CT Traumagram (Head C Spine CAP W Con) In Process Unspecified. EDMS 20:21 Client placed on continuous cardiac and pulse oximetry monitoring. NIBP monitoring lg3 applied. cafeteria monitor on. Door closed. Noise minimized. Warm blanket given. Family accompanied patient. 20:44 Initiated transfer with Mumtaz at [facility]. rv1 20:52 XRAY Foot RIGHT 3 View In Process Unspecified. EDMS 20:52 XRAY Pelvis In Process Unspecified. EDMS 21:57 Patient maintains SpO2 saturation greater than 95% on room air. lg3 21:58 No provider procedures requiring assistance completed. Patient transferred, IV remains lg3 in place. intact, No redness/swelling at site. 21:59 Thermoregulation: warm blanket given to patient. lg3 21:59 Arm band placed on right wrist. lg3 Administered Medications: 20:01 Drug: morphine IVP or IV 4 mg Route: IVP; Infused Over: 4 mins; Site: left forearm; lg3 21:34 Follow up: Response: No adverse reaction; No change in condition; Pain is unchanged, lg3 physician notified 20:01 Drug: Ondansetron IVP 4 mg Route: IVP; Site: left forearm; lg3 21:34 Follow up: Response: No adverse reaction; Marked relief of symptoms; Nausea is decreasedlg3 21:57 Drug: morphine IVP or IV 4 mg Route: IVP; Infused Over: 4 mins; Site: left forearm; lg3 21:57 Follow up: Response: No adverse reaction; Marked relief of symptoms lg3 Medication: 21:59 VIS not applicable for this client. lg3 Intake: 21:57 PO: 0ml; IV: 0ml; Total: 0ml. lg3 Output: 21:57 Urine: 0ml; Total: 0ml. lg3 Outcome: 20:51 ER care complete, transfer ordered by MD. ms3 21:57 Transferred by ground EMS to [facility], Transfer form completed. X-rays sent lg3 w/ patient. 21:57 Condition: stable 21:57 Patient's length of stay was not longer than 2 hours. 22:00 Patient left the ED. lg3 Signatures: Dispatcher [employer] EDAkanksha Dawson Lacie, RN RN lg3 Puma Swain DO DO ms3 Allyson Trejo, RN RN pf1 Dona Toure1 Corrections: (The following items were deleted from the chart) 19:44 19:43 The history from the nurse's notes was reviewed and I agree with what is ms3 documented. ms3
--- NOTE | 2023-02-02 20:57 | RAD REPORT ---
EXAM DESCRIPTION: RAD - Foot Right 3 View - 02/02/2023 8:50 pm CLINICAL HISTORY: Right foot pain status post injury FINDINGS: No fracture or dislocation is seen
--- NOTE | 2023-02-02 20:57 | RAD REPORT ---
EXAM DESCRIPTION: RAD - Pelvis - 02/02/2023 8:50 pm CLINICAL HISTORY: Pelvic pain status post injury FINDINGS: No fracture or dislocation is seen.
[2023-02-02] MEDS ORDERED: DIPHENHYDRAMINE 50 MG/ML VIAL ONE (21:32)
[2023-02-02 22:07] VITALS: TEMP 97.4
[2023-02-02 22:08] VITALS: O2SAT 99
[2023-02-02 22:09] VITALS: BP 136/60
--- NOTE | 2023-02-04 17:15 | EKG ---
Test Date: 2023-02-02 Test Time: 19:29:36 Hearing Care Professional: RV MEASUREMENT RESULTS: Intervals: Rate: 56 WA: 164 QRSD: 86 QT: 416 QTc: 401 [place]: P: 47 WA: 164 QRS: 58 T: 52 INTERPRETIVE STATEMENTS: Sinus bradycardia Otherwise normal ECG Compared to ECG 06/20/2022 12:53:46 No significant changes Electronically Signed On 02-04-23 17:11:15 CDT by Von Quinteros
== END 2023-02-02 22:00 | disposition short-term general hospital (02) ==
LOC: ER 19:00
DX: S70.01XA Contusion of right hip, initial encounter (principal); R58 Hemorrhage, not elsewhere classified; M54.2 Cervicalgia; M54.50 Low back pain, unspecified; W10.2XXA Fall (on)(from) incline, initial encounter; E11.9 Type 2 diabetes mellitus without complications; Z79.4 Long term (current) use of insulin; I10 Essential (primary) hypertension; Z79.01 Long term (current) use of anticoagulants; Z79.82 Long term (current) use of aspirin; Z88.8 Allergy status to other drugs, medicaments and biological substances
CPT/HCPCS: 85025; 80048; 36415; 86900; 86850; 86901; 82947; 86920 ×2; 70450; 72125; 71260; 74177; 72170; 73630; Q9967; J1200; J2405; J7030; 93005; 96374; 96375; 99285; G0390